=== PATIENT | female | born 1935 | race Caucasian/White ===

== ENCOUNTER → 2017-10-28 09:01 | Day surgery (SDC) | payer MEDICARE, BC, SELFPAY ==
--- NOTE | 2017-10-28 | PATH_ITS ---
[facility] Accession Number: [id number] . 01 Material submitted: . PART A: CECAL POLYP X2 PART B: ASCENDING COLON POLYP PART C: SIGMOID POLYP . 02 Diagnosis: A. Cecal Polyps, Biopsies: Fragments of tubular adenoma (two polyps removed). . B. Ascending Colon Polyp, Biopsy: Tubular adenoma. . C. Sigmoid Colon Polyp, Biopsy: Tubular adenoma. MRV/10/29/2017 . 02 Electronically signed: . Uriel Holley MD, PhD, Pathologist NPI- [id number] . 01 Gross description: . Received are three formalin-filled containers, each labeled with the patient's name: . A. In a container labeled cecal polyp x2, are multiple less than 0.1 cm to 1.1 cm portions of tissue. The largest piece is sectioned into multiple pieces. All fragments are totally submitted in cassette A. B. In a container labeled ascending colon polyp, the specimen consists of a 0.3 cm portion of tissue, entirely submitted in cassette B. C. In a container labeled sigmoid polyp, the specimen consists of a 0.4 cm portion of tissue, entirely submitted in cassette C. ([id number]) /FRR . 02 Pathologist provided ICD-10: D12.0, D12.2, D12.5 . 02 CPT . 416224, 466124, [id number] Performed at: 01 [facility] [address] [place] [address], [place], [place] [id number] MD Gen Murphy MD Phone: [phone] Performed at: [address] [facility] [address] [place], [place] [id number] MD Todd Espinosa MD Phone: [phone]
[2017-10-28 09:18] VITALS: BMI 33.8
[2017-10-28 09:30] VITALS: BP 140/76; PULSE 80; RESP 20; TEMP 36.3; O2SAT 97
[2017-10-28] MEDS: SODIUM CHLORIDE 0.9% 1,000 ML 70 ML IV (10:05)
--- NOTE | 2017-10-28 10:23 | PM.HP.1 ---
History of Present Illness Chief complaint: colonoscopy [id number] Narrative: Nanda Nascimento is a 82 year old female who is here for polyp surveillance [facility] Surgical History Status post hysterectomy Family History Father Heart disease Social History household members: spouse Meds Home Medications Medication Instructions Recorded Confirmed Type fluticasone 1 spray INTRANASAL QAM PRN #0 09/02/17 10/28/17 History Lexapro 20 mg PO QAM 10/28/17 10/28/17 History aspirin 81 mg PO QAM 10/28/17 10/28/17 History multivitamin 1 tab PO QAM 10/28/17 10/28/17 History Generic Name Dose Route Start Last Admin Trade Name Freq PRN Reason Stop Dose Admin Sodium Chloride 1,000 mls @ 70 mls/hr 10/28/17 10:15 Normal Saline 0.9% IV CONT KHARI Allergies Allergy/AdvReac Type Severity Reaction Status Date / Time bupropion Allergy Mild ITCHING Unverified 09/23/17 13:00 Review of Systems Review of Systems All systems reviewed & are unremarkable except as noted in HPI and below Exam Vital Signs (past 8 hours): Vital Signs - 8 hr 10/28/17 09:30 Temperature 97.4 F L Pulse Rate 80 Respiratory Rate 20 Blood Pressure 140/76 H Pulse Oximetry 97 Pulse Oximetry 97 Oxygen Delivery Method Room Air Narrative Exam Narrative: General: Patient is well developed, not in apparent distress Cardiovascular: Regular rate and rhythm, no murmurs, rubs, or gallops; no evidence of edema; no palpable abdominal aortic aneurysm Gastrointestinal: Normoactive bowel sounds, soft, nontender, nondistended, no rebound tenderness, no hepatosplenomegaly, no evidence of hernia Assessment & Plan Plan: Plan: 82-year-old female here for colon polyp surveillance. She is stable for the procedure and we will proceed with colonoscopy
--- NOTE | 2017-10-28 10:27 | PM.OP.ENDO ---
Operative Date/Time/Diagnoses - Date of procedure: 10/28/17 Time of procedure: 10:27 Pre-op diagnosis: Colon polyp surveillance Post-op diagnosis: other (Colon polyp status post polypectomy, grade 1 internal hemorrhoids) Procedure Notes Procedure in detail: Surgeon: David Tapia MD Procedure: Colonoscopy Medications: Conscious sedation using 4 mg IVof Midazolam and 150 mcg IV of Fentanyl Preanesthesia Assessment An H and P was performed/updated and the Px???s ASA class is 2. The procedure was discussed in detail with the patient. The potential risks and complications including infection, bleeding, missed lesions, perforation, need for surgery in case of perforation, prolonged hospital stay, and were explained. A brief question and answer period was allotted and once all questions were answered, informed consent was obtained. The patient was brought back to the procedure room and placed on standard monitoring. The patient???s vital signs were monitored continuously throughout the entire procedure. Prior to starting, a timeout was performed to confirm the patient???s identity, allergies, medications, and procedure. Procedure in detail The patient was placed in left lateral decubitus position and once adequate sedation was obtained a MONROE was performed. The digital rectal exam revealed no palpable lesions The tip of the colonoscope was placed in the anal canal and advanced without difficulty all the way to the cecum which was identified by the appendiceal orifice and ileocecal valve. Just adjacent to the appendiceal orifice there is note of a 10 mm sessile polyp. Preparations for polypectomy to remain by saline injection to lift the polyp this was followed by hot snare which removed almost the entire polyp. Other edges of the were completely removed by means of a cold biopsy forceps. There was minimal bleeding. A 2nd sessile polyp was found in the cecum measuring 8 mm and this was removed by means of cold snare with minimal bleeding. Examination of the remainder of the colon was performed with irrigation of any residual stool. In the ascending colon there is note of a 6 mm sessile polyp which was removed by means of cold snare with minimal bleeding. Further examination of the colon revealed a 4 mm sessile polyp in the sigmoid colon which was removed in its entirety by means of a cold snare with minimal bleeding. Retroflexion was performed in the rectum which revealed grade 1 internal hemorrhoids. The patient tolerated the procedure well and will be brought back to the recovery area to be discharged once criteria are met. The prep was judged to be good/excellent and adequate to identify polyps less than 5 mm. The withdrawal time was 20 min. The total procedure time from initial sedation was 33 min. Complications There were no complications and estimated blood loss was minimal. Recommendations: Resume previous diet Continue outPx medications Please hold aspirin for 1 week's time if no contraindication, due to multiple polypectomies Follow up pathology results Repeat colonoscopy can be considered in 3 years time if patient is agreeable however at her age further surveillance may also not be necessary. An emergency contact number was given to the patient for any complications related to the procedure
[2017-10-28 11:02] VITALS: BP 100/51; PULSE 83; RESP 15; TEMP 36.6; O2SAT 95
[2017-10-28] MEDS: fentaNYL 250 MCG/5 ML INJ IV (11:02)
[2017-10-28] MEDS: MIDAZOLAM 5 MG/5 ML VIAL IV (11:03)
--- NOTE | 2017-10-28 11:06 | PM.DS.1 ---
History of Present Illness Chief complaint: colonoscopy [id number] Narrative: Nanda Nascimento is a 82 year old female here for colon polyp surveillance Discharge Providers Primary care physician: Yadira Valdez PA-C Discharge provider: David Tapia MD Summary Time Spent with Patient Total time spent providing and/or coordinating discharge services: Exam Vital Signs (past 8 hours): Vital Signs - 8 hr 10/28/17 09:30 Temperature 97.4 F L Pulse Rate 80 Respiratory Rate 20 Blood Pressure 140/76 H Pulse Oximetry 97 Pulse Oximetry 97 Oxygen Delivery Method Room Air Narrative Exam Narrative: General: Patient is well developed, not in apparent distress Cardiovascular: Regular rate and rhythm, no murmurs, rubs, or gallops; no evidence of edema; no palpable abdominal aortic aneurysm Gastrointestinal: Normoactive bowel sounds, soft, nontender, nondistended, no rebound tenderness, no hepatosplenomegaly, no evidence of hernia Discharge Plan Discharge Plan Patient Disposition: Home, Self-Care Discharge comment: Removal IV prior to discharge Discharge to home with escort once discharge criteria met (stable vital signs, no abdominal pain, tolerating clear liquids) Discharge Med Rec/Prescriptions Prescriptions: No Action fluticasone 16 GM spray,suspension 1 spray Intranasal QAM PRN (Reason: Nasal Congestion) Qty: 0 RF: 0 valsartan-hydrochlorothiazide 160 MG/12.5 MG tablet 1 tab PO QDAY Qty: 90 RF: 3 simvastatin [Zocor] 40 MG tablet 40 mg PO QDAY Qty: 90 RF: 3 amitriptyline 25 MG tablet 25 mg PO HS Qty: 90 RF: 3 Lexapro 20 mg PO QAM RF: 0 aspirin 81 mg PO QAM RF: 0 multivitamin 1 tab PO QAM RF: 0 Visit Report/Discharge Packet Stand Alone Forms: Surgery Discharge Discharge Data Primary Care Provider: Yadira Valdez Attending Provider: David Tapia
[2017-10-28 11:07] VITALS: BP 98/55; PULSE 75; RESP 8; O2SAT 98
[2017-10-28 11:12] VITALS: BP 95/33; PULSE 74; RESP 74; O2SAT 95
[2017-10-28 11:17] VITALS: BP 105/52; PULSE 71; RESP 15; TEMP 36; O2SAT 98
[2017-10-28 11:30] VITALS: BP 110/63; PULSE 73; RESP 16; TEMP 37.5; O2SAT 99
== END | disposition home or self-care (01) ==
PROVIDERS: Family Provider Physician Assistant; PCP Physician Assistant; Visit Provider Internal Medicine Gastroenterology
PROC: 0DJD8ZZ Inspection of Lower Intestinal Tract, Via Natural or Artificial Opening Endoscopic (ICD-10-PCS; CPT 45378; principal; 2017-10-28 10:00)
DX: Z12.11 Encounter for screening for malignant neoplasm of colon (principal); Z86.010 Personal history of colon polyps; K64.0 First degree hemorrhoids; D12.0 Benign neoplasm of cecum; D12.2 Benign neoplasm of ascending colon; D12.5 Benign neoplasm of sigmoid colon
CPT/HCPCS: 45385; 45384; 88305; J2250; J3010

== ENCOUNTER → 2017-12-24 15:38 | Outpatient (CLI) | payer MEDICARE, BC, SELFPAY ==
--- NOTE | 2017-12-24 | DI.RAD.S_ITS ---
PROCEDURE: XR CHEST 2V INDICATIONS: COUGH,WHEEZE,CRACKES LLL TECHNIQUE: 2 views of the chest were acquired. COMPARISON: [facility], , CHEST 2 VIEW, 07/21/2017, 9:52. FINDINGS: Surgical changes and devices: None. Lungs and pleura: No pleural effusions or pneumothorax. Lungs are clear. Mediastinum: Mediastinal contours are normal. Heart size is normal. Bones and chest wall: No suspicious bony abnormalities. Soft tissues appear unremarkable. IMPRESSION: No acute cardiopulmonary disease. Dictated by: Leticia Lee M.D. on 12/24/2017 at 16:09 Approved by: Leticia Lee M.D. on 12/24/2017 at 16:09
== END ==
PROVIDERS: Visit Provider Nurse Practitioner Family
DX: R05 Cough (principal); R06.2 Wheezing
CPT/HCPCS: 71046

== ENCOUNTER → 2018-01-28 13:02 | Outpatient (CLI) | payer MEDICARE, BC, SELFPAY ==
--- NOTE | 2018-01-28 | OV.WND_ITS ---
Progress Note Details Patient Name: Nanda Nascimento Patient Number: [id number] PatientPatientDate: 01/28/2018 Clinician: Ammy Farias Clinician Cosigner: Muna Painter Physician / Paraffin Plant Operator: Yousif Arroyo SUBJECTIVE Chief Complaint This information was obtained from the patient Right Great Toe ulcer Allergies amoxicillin (Reaction: not sure), Levaquin (Severity: Moderate, Reaction: Lips swell), lisinopril (Severity: Moderate, Reaction: Rash) HPI This information was obtained from the patient 01/28/18. Seen by Dr. Arroyo. 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 She does not know how it started however it's been draining. She does not report pain in the toe but states she has a history of neuropathy and reduced sensation in her feet. Family History This information was obtained from the patient Cancer - No History, Diabetes - No History, Heart Disease - Father, Hereditary Spherocytosis - No History, Hypertension - No History, Kidney Disease - Mother, Mental Illness - No History, Non-contributory - No History, None - No History, Seizures - No History, Stroke - No History, Thyroid Problems - No History, Tuberculosis - Paternal Grandparents Social History This information was obtained from the patient Never smoker, Caffeine Use - 2 a day, Children - 4, Lives in - Own home, Marital Status - yes, Retired Past Medical History This information was obtained from the patient Patient has a medical history of: Pneumonia - 01/12/2018 Depression Neuropathy (Started 25 years ago) Surgical History This information was obtained from the patient Patient has a surgical history of: Bladder (3 Times) Broken ankle (Right) Complaints and Symptoms This information was obtained from the patient Patient complains of: General Notes: I have reviewed and concur with the Review of Systems and Past Family Social History documents completed by the clinician, I have reviewed and concur with the Wound Assessment document completed by the clinician Hematologic/Lymphatic: Bleeding Tendency Integumentary (Hair/Skin/Nails): Open Sore Neurological: Loss of Protective Sensation Prior Wound History: Drainage, Erythema Patient denies complaints or symptoms related to: Cardiovascular (Central/Peripheral): Lower extremity (leg) resting pain, Lower extremity (leg) swelling Constitutional Symptoms (General Health): Chills, Fever Ear/Nose/Mouth/Throat: Hearing Loss / Aid Hematologic/Lymphatic: Bleeding / Clotting Disorders Prior Wound History: Pain Respiratory: Shortness of Breath General Notes: UP to date per patient. Additional Information Does patient have a history of Cancer? Yes? Complete all questions.: No Medications olmesartan 40 mg tablet oral 1 1 tablet oral once daily fluticasone propionate (bulk) 100 % powder miscellaneous powder miscellaneous for Occsionally Aspir-81 81 mg tablet,delayed release oral tablet,delayed release (DR/EC) oral once daily Lexapro 20 mg tablet oral 1 1 tablet oral once daily amitriptyline 25 mg tablet oral 1 1 tablet oral once daily OBJECTIVE Constitutional Vital signs reviewed and noted. Well developed. Alert. Clean appearing.. Height/ Length: 62 in (157.48 cm), Weight: 186.3 lbs (84.68 kgs), BMI: 34.1, Temperature: 97.8 ?F ( 36.56 ?C), Pulse: 80 bpm, Respiratory Rate: 18 breaths/min, Blood Pressure: 117/73 mmHg, Pulse Oximetry: 96 %. Ears, Nose, Mouth, and Throat: No clinically significant hearing loss on informal examination. Respiratory: No respiratory distress. Even respirations and without use of accessory muscles.. Cardiovascular: 1+ dorsalis pedis and posterior tibial on the right. Affected extremity exhibits no peripheral edema or cyanosis, is warm, and is well perfused. Capillary refill is less than 2 seconds. Integumentary (Hair, Skin) Mild periwound erythema without warmth. Refer to appropriate clinician wound documentation for this visit; right foot ulcer extends to subcut with base partially covered with pink granulation, remainder fibrin and slough. Wound #1 Right Great Toe is a chronic Partial Thickness Neuropathic Ulcer and has received a status of Not Healed. Initial wound encounter measurements are 0.5cm length x 0.4cm width x 0.2cm depth, with an area of 0.2 sq cm and a volume of 0.04 cubic cm. No tunneling has been noted. No sinus tract has been noted. No undermining has been noted. There is a small amount of serous drainage noted which has no odor. The patient reports a wound pain of level 0/10. The wound margin is attached. Wound bed has No epithelialization, No eschar, Yes slough, Yes granulation. The periwound skin texture is normal. The periwound skin moisture is normal. The periwound skin color is normal. The temperature of the periwound skin is WNL. Periwound skin does not exhibit signs or symptoms of infection. Local Pulse is Doppler. Neurological: Cranial nerves grossly intact with symmetric function normal by informal observation.. ASSESSMENT Active Problems ICD-10 (Encounter Diagnosis) L97.512 - Non-pressure chronic ulcer of other part of right foot with fat layer exposed (Encounter Diagnosis) G60.9 - Hereditary and idiopathic neuropathy, unspecified (Encounter Diagnosis) L08.9 - Local infection of the skin and subcutaneous tissue, unspecified PROCEDURES Wound #1 Wound #1 (Neuropathic Ulcer) is located on the right great toe. A skin/ subcutaneous tissue level surgical debridement with a total area debrided of 0.2 sq cm was performed by Yousif Arroyo MD. Subcutaneous was removed along with devitalized tissue: exudate and slough. The following instrument(s) were used: curette. Pain control was achieved using EMLA lidocaine/prilocaine 2.5%/2.5%. A time out was conducted prior to the start of the procedure. A minimal amount of bleeding was controlled with pressure. The procedure was tolerated well with a loss of sensation throughout and a loss of sensation following the procedure. Post Debridement Measurements: 0.5cm length x 0.4cm width x 0.2cm depth; with an area of 0.2 sq cm and a volume of 0.04 cubic cm; PLAN Wound Orders: Wound #1 Right Great Toe Cleanser Cleanse Wound: - Distilled water or Normal saline May Shower. - If you wear a Cast Boot Protector, [facility] or [facility] will have this. Topical Treatments Antibiotic/Antimicrobial Ointment/Cream. - Gentamicin ointment to wound bed. Dressings Primary dressing: - Foam. Cover and secure with: - Hypafix tape Change Dressing: - Change every other day. Follow-Up Appointments Return Appointment: - - In one week. Laboratory: Culture Wound I've reviewed the clinician's documentation and agree with the evaluation and plan as written. In addition, the patient's ulcer demonstrates evidence of non-viable devitalized tissue which will continue to benefit from sharp debridement to help promote granulation and expedite healing. Also, I've cultured the ulcer and started treating a superficial infection with topical gentamicin ointment. Electronic Signature(s) Signed By: Date: Yousif Arroyo MD 01/29/2018 09:29:15 Entered By: Yousif Arroyo on 01/29/2018 09:13:35
== END ==
PROVIDERS: Family Provider Physician Assistant; PCP Nurse Practitioner Family; Referring Provider Nurse Practitioner Family; Visit Provider Internal Medicine
DX: L97.512 Non-pressure chronic ulcer of other part of right foot with fat layer exposed (principal); G60.9 Hereditary and idiopathic neuropathy, unspecified; L08.9 Local infection of the skin and subcutaneous tissue, unspecified
CPT/HCPCS: 11042; 87070; 87075; 87077; 87147; 87186; 87205; 99213

== ENCOUNTER → 2018-02-04 09:01 | Outpatient (CLI) | payer MEDICARE, BC, SELFPAY | PROVIDERS: PCP Nurse Practitioner Family; Visit Provider Internal Medicine | DX: G90.9 Disorder of the autonomic nervous system, unspecified (principal); L97.511 Non-pressure chronic ulcer of other part of right foot limited to breakdown of skin | CPT/HCPCS: 99212 ==

== ENCOUNTER 2018-08-20 10:48 | Emergency (ER) | payer OTHER, SELFPAY ==
[2018-08-20] VITALS (7 sets, daily range): BP systolic 118–140; BP diastolic 52–83; PULSE 64–76; RESP 15–19; TEMP 36.6; O2SAT 98–99; BMI 33.0
--- NOTE | 2018-08-20 11:21 | PC.NURSE ---
Pt has complaining of Pain in her upper back with slight pain radiating down left arm with numbness in fingers. Reports feeling chest tightness. States feeling dizzy with standing.
--- NOTE | 2018-08-20 11:28 | DI.RAD.S_ITS ---
PROCEDURE: XR CHEST 1V INDICATIONS: chest pain TECHNIQUE: One view of the chest was acquired. COMPARISON: [facility], , XR CHEST 2V, 12/24/2017, 15:23. [facility], , CHEST 2 VIEW, 07/21/2017, 9:52. FINDINGS: Surgical changes and devices: None. Lungs and pleura: Lungs are clear. No pleural effusions or pneumothorax. Mediastinum: Mediastinal contours appear normal. Heart size is normal. Bones and chest wall: No suspicious bony lesions. Overlying soft tissues appear unremarkable. IMPRESSION: No acute cardiopulmonary disease process. Dictated by: Valarie Leonard MD, PhD on 08/20/2018 at 11:57 Approved by: Valarie Leonard MD, PhD on 08/20/2018 at 12:02
[2018-08-20 12:15] LABS: Prothrombin Time 11.4 SECONDS (10.1-12.7)
[2018-08-20 12:18] LABS: PTT Partial Thromboplastin Tim 26 SECONDS (26.4-36.2)
[2018-08-20 12:20] LABS: Alanine Aminotransferase 32 IU/L (9-52); Albumin 4.5 g/dL (3.5-5.0); Albumin Globulin Ratio 1.4 (1.0-2.8); Alkaline Phosphatase 66 U/L (38-126); Aspartate Aminotransferase 31 IU/L (14-36); BUN Creatinine Ratio 31.4 (6-22); Bilirubin Total 0.5 mg/dL (0.2-1.3); Blood Urea Nitrogen 22 mg/dL (7-17); Calcium 9.7 mg/dL (8.4-10.2); Carbon Dioxide 25 mmol/L (22-32); Chloride 99 mmol/L (98-107); Creatine Kinase 38 U/L (30-135); Estimated Glomerular Filt Rate > 60.0 mL/min (>60); Globulin 3.2 g/dL (1.7-4.1); Glucose 97 mg/dL (80-110); HEMOLYSIS < 15 (0-50); Lipase 47 U/L (23-300); Potassium 3.8 mmol/L (3.4-5.1); Sodium 138 mmol/L (137-145); Total Protein 7.7 g/dL (6.3-8.2)
[2018-08-20 12:23] LABS: Add Manual Diff / Slide Review NO; Basophils Absolute Auto 100 /uL (0-100); Basophils Percent Auto 0.7 % (0-2); Eosinophils Absolute Auto 100 /uL (0-450); Eosinophils Percent Auto 1.6 % (2-4); Hemoglobin 14.4 g/dL (12.0-16.0); Lymphocytes Absolute Auto 2700 /uL (1100-4500); Lymphocytes Percent Auto 33.4 % (25-40); Mean Corpuscular HGB Conc 33.5 % (30-36); Mean Corpuscular Hemoglobin 30.7 PG (26-34); Mean Corpuscular Volume 91.7 fL (80-100); Monocytes Absolute Auto 800 /uL (0-900); Monocytes Percent Auto 9.7 % (3-14); Neutrophils Absolute Auto 4400 /uL (1500-7000); Neutrophils Percent Auto 54.6 % (50-75); Platelet Count 311 X10^3/uL (150-400); Red Cell Distribution Width 12.4 % (11.6-14.8)
--- NOTE | 2018-08-20 12:28 | ED.CHESTPAIN ---
HPI - Chest Pain <Dejah Kang PA-C - Last Filed: 08/20/18 14:44> General Chief Complaint: Chest Pain Stated Complaint: HEAVY CHEST/ARM/BACK Time Seen by Provider: 08/20/18 12:26 Source: patient Mode of arrival: ambulatory Limitations: no limitations History of Present Illness HPI narrative: This 82-year-old female comes in with 2-3 day history of chest discomfort and left shoulder and arm pain. She states that she describes this as a mild heavy sensation in her chest. She states that she has woken up 3 times now, 1st 2 or 3 days ago while napping, with pain in her left shoulder and upper arm to the elbow. She describes this as an ache. She states it only happens when she sleeps on her side, does not happen when she is on her back. She states that she has had mild nausea for the last couple of days, no vomiting. She denies any wheeze or cough, states maybe slightly short of breath today. She denies any recent illness or fever. She denies any new pain or swelling in her legs. She states that she has had some falls related to her neuropathy. Last week, she tripped and started to fall, but caught herself on the window frame with her upper back area, did not think any injury at the time. She does not know of any other trauma. She states there is no exertional component to her arm pain or chest heaviness. She states she has some ongoing dizziness if she gets up too fast, but that is also a chronic issue. Related Data Home Medications Medication Instructions Recorded Confirmed fluticasone 1 spray INTRANASAL QAM PRN #0 09/02/17 08/20/18 aspirin 81 mg PO DAILY 10/28/17 08/20/18 multivitamin 1 tab PO QAM 10/28/17 08/20/18 B Vitamin 1 tab PO DAILY 08/20/18 08/20/18 Vitamin D3 2 cap PO QWEEK 08/20/18 08/20/18 escitalopram oxalate 20 mg PO DAILY PRN 08/20/18 08/20/18 hydrochlorothiazide 25 mg PO DAILY 08/20/18 08/20/18 olmesartan 40 mg PO QPM 08/20/18 08/20/18 Allergies Allergy/AdvReac Type Severity Reaction Status Date / Time bupropion Allergy Mild ITCHING Verified 08/20/18 11:20 Review of Systems <Dejah Kang PA-C - Last Filed: 08/20/18 14:44> Review of Systems ROS Unobtainable: All systems reviewed & are unremarkable except as noted in HPI and below PFSH <Dejah Kang PA-C - Last Filed: 08/20/18 14:44> Medical History Allergy (Chronic Unknown) Anxiety (Chronic Unknown) Arthritis (Chronic Unknown) Depression (Chronic Unknown) Foot pain (Chronic Unknown) HTN (hypertension) (Chronic) Low back pain (Chronic Unknown) Peripheral neuropathy (Chronic Unknown) Carpal tunnel syndrome (Resolved 2014) Cataracts, bilateral (Resolved Unknown) Fecal incontinence (Resolved 10/2016) Fractures (Resolved Unknown) Surgical History H/O bladder repair surgery (Resolved Unknown) Status post hysterectomy Family History Father Heart disease Social History household members: spouse Smoking Status: Never smoker Social History household members: spouse Smoking Status: Never smoker Exam <Dejah Kang PA-C - Last Filed: 08/20/18 14:44> Narrative Exam Narrative: Postural readings: Supine BP 122/69, pulse 65, sitting BP 130/68, pulse 76, standing 128/68, pulse 69 GENERAL APPEARANCE: Patient sitting comfortably, in no distress. NECK/THYROID: Neck supple, no JVD. LUNGS: Clear to auscultation bilaterally. HEART: Regular rate and rhythm without murmur, normal S1, S2, no S3 or S4. ABDOMEN: Soft, NT, ND, + BS x 4 quadrants EXTREMITIES: No cyanosis or edema. No calf tenderness NEUROLOGIC: Alert and oriented, normal speech, and coordination. DERMATOLOGIC: No exanthem MUSCULOSKELETAL: No point tenderness over the cervical or thoracic spine, patient has some point tenderness over the proximal border of the trapezius/strap muscle insertions on the left at the midline. Moderately tender over the left lateral shoulder and upper arm musculature. She has full range of motion of the left upper extremity but is somewhat tender with adduction abduction Initial Vital Signs Initial Vital Signs: Vital Signs Temperature 97.9 F 08/20/18 11:20 Pulse Rate 73 08/20/18 11:20 Respiratory Rate 15 08/20/18 11:20 Blood Pressure 127/73 08/20/18 11:20 Pulse Oximetry 99 08/20/18 11:20 <Jaci Hall DO - Last Filed: 08/20/18 19:32> Initial Vital Signs Initial Vital Signs: Vital Signs Temperature 97.9 F 08/20/18 11:20 Pulse Rate 73 08/20/18 11:20 Respiratory Rate 15 08/20/18 11:20 Blood Pressure 127/73 08/20/18 11:20 Pulse Oximetry 99 08/20/18 11:20 Scores <Dejah Kang PA-C - Last Filed: 08/20/18 14:44> HEART Score Heart Score history: Slightly Suspicious Heart Score EKG: Normal Heart Score Age: > or = 65 years old Heart Score risk factors: 1-2 risk factors Heart Score troponin: < or = to normal limit Heart Score Total: 3 Course <Dejah Kang PA-C - Last Filed: 08/20/18 14:44> Additional Information: Patient has not had any recurrent upper extremity pain while lying supine here in the ED. Heart score is 3, mainly due to age and now on antihypertensive medication. Pain is atypical for cardiac source. No acute findings on lab work or imaging. Reviewed findings with Dr. Hall who agrees reasonable to d/c home. Patient states she has not had a cardiac stress test in years since I was seeing her in the office. She will follow up on Thursday with her PCP for these symptoms and to discuss repeat testing. She agreed to return if any acutely worsening symptoms in the interim. Orders Ordered: ED Orders 08/20/18 10:55 EKG-12 Lead Routine 08/20/18 11:28 XR chest 1V Stat 08/20/18 11:55 Complete Blood Count AUTO DIFF Stat Comprehensive Metabolic Panel Stat D Dimer Stat Lipase Stat Partial Thromboplastin Time Stat Prothrombin Time INR Stat Troponin & CK Cardiac Panel Stat 08/20/18 12:45 XR shoulder LT min 2V Stat Vital Signs - 8 hr 08/20/18 11:55 08/20/18 12:34 03/08/19 13:04 Pulse Rate 66 66 65 Pulse Rate [Orthostatic Lying] Pulse Rate [Orthostatic Sitting] Pulse Rate [Orthostatic Standing] Respiratory Rate 17 15 19 Blood Pressure [Left Arm] 118/52 L 140/74 134/83 Blood Pressure [Orthostatic Lying] Blood Pressure [Orthostatic Sitting] Blood Pressure [Orthostatic Standing] Pulse Oximetry 98 99 99 08/20/18 14:02 08/20/18 14:32 08/20/18 15:08 Pulse Rate 64 69 Pulse Rate [Orthostatic Lying] 65 Pulse Rate [Orthostatic Sitting] 76 Pulse Rate [Orthostatic Standing] 69 Respiratory Rate 15 18 Blood Pressure [Left Arm] 127/61 128/68 Blood Pressure [Orthostatic Lying] 122/69 Blood Pressure [Orthostatic Sitting] 130/68 Blood Pressure [Orthostatic Standing] 128/68 Pulse Oximetry 98 99 <Jaci Hall, DO - Last Filed: 08/20/18 19:32> Orders Ordered: ED Orders 08/20/18 10:55 EKG-12 Lead Routine 08/20/18 11:28 XR chest 1V Stat 08/20/18 11:55 Complete Blood Count AUTO DIFF Stat Comprehensive Metabolic Panel Stat D Dimer Stat Lipase Stat Partial Thromboplastin Time Stat Prothrombin Time INR Stat Troponin & CK Cardiac Panel Stat 08/20/18 12:45 XR shoulder LT min 2V Stat Vital Signs - 8 hr 08/20/18 11:55 08/20/18 12:34 08/20/18 13:04 Pulse Rate 66 66 65 Pulse Rate [Orthostatic Lying] Pulse Rate [Orthostatic Sitting] Pulse Rate [Orthostatic Standing] Respiratory Rate 17 15 19 Blood Pressure [Left Arm] 118/52 L 140/74 134/83 Blood Pressure [Orthostatic Lying] Blood Pressure [Orthostatic Sitting] Blood Pressure [Orthostatic Standing] Pulse Oximetry 98 99 99 08/20/18 14:02 08/20/18 14:32 08/20/18 15:08 Pulse Rate 64 69 Pulse Rate [Orthostatic Lying] 65 Pulse Rate [Orthostatic Sitting] 76 Pulse Rate [Orthostatic Standing] 69 Respiratory Rate 15 18 Blood Pressure [Left Arm] 127/61 128/68 Blood Pressure [Orthostatic Lying] 122/69 Blood Pressure [Orthostatic Sitting] 130/68 Blood Pressure [Orthostatic Standing] 128/68 Pulse Oximetry 98 99 MDM - Chest Pain <Dejah Kang PA-C - Last Filed: 08/20/18 14:44> Lab Data Attestation: I reviewed the patient's lab results. Result diagrams: 08/20/18 11:55 08/20/18 11:55 Lab Results 08/20/18 08/20/18 08/20/18 Range/Units 11:55 11:55 11:55 WBC 8.0 (4.5-11.0) X10^3/uL RBC 4.70 (4.0-5.2) X10^6/uL Hgb 14.4 (12.0-16.0) g/dL Hct 43.0 (36-46) % MCV 91.7 (80-100) fL MCH 30.7 (26-34) PG MCHC 33.5 (30-36) % RDW 12.4 (11.6-14.8) % Plt Count 311 (150-400) X10^3/uL Neut % (Auto) 54.6 (50-75) % Lymph % (Auto) 33.4 (25-40) % Deuel % (Auto) 9.7 (3-14) % Eos % (Auto) 1.6 L (2-4) % Baso % (Auto) 0.7 (0-2) % Neut # (Auto) 4400 (9001-1443) /uL Lymph # (Auto) 2700 (0415-9242) /uL Deuel # (Auto) 800 (0-900) /uL Eos # (Auto) 100 (0-450) /uL Baso # (Auto) 100 (0-100) /uL PT 11.4 (10.1-12.7) SECONDS INR 1.0 (0.9-1.3) APTT 26 L (26.4-36.2) SECONDS D-Dimer (<230) ng/mL Sodium 138 (137-145) mmol/L Potassium 3.8 (3.4-5.1) mmol/L Chloride 99 (98-107) mmol/L Carbon Dioxide 25 (22-32) mmol/L BUN 22 H (7-17) mg/dL Creatinine 0.70 (0.52-1.04) mg/dL Estimated GFR > 60.0 (>60) mL/min BUN/Creatinine Ratio 31.4 H (6-22) Glucose 97 (80-110) mg/dL Calcium 9.7 (8.4-10.2) mg/dL Total Bilirubin 0.5 (0.2-1.3) mg/dL AST 31 (14-36) IU/L ALT 32 (9-52) IU/L Alkaline Phosphatase 66 (38-126) U/L Total Creatine Kinase 38 (30-135) U/L CK-MB (CK-2) TNP CK-MB (CK-2) Rel Index TNP Troponin I < 0.012 (0.01-0.034) ng/mL Total Protein 7.7 (6.3-8.2) g/dL Albumin 4.5 (3.5-5.0) g/dL Globulin 3.2 (1.7-4.1) g/dL Albumin/Globulin Ratio 1.4 (1.0-2.8) Lipase 47 (23-300) U/L 08/20/18 Range/Units 11:55 WBC (4.5-11.0) X10^3/uL RBC (4.0-5.2) X10^6/uL Hgb (12.0-16.0) g/dL Hct (36-46) % MCV (80-100) fL MCH (26-34) PG MCHC (30-36) % RDW (11.6-14.8) % Plt Count (150-400) X10^3/uL Neut % (Auto) (50-75) % Lymph % (Auto) (25-40) % Deuel % (Auto) (3-14) % Eos % (Auto) (2-4) % Baso % (Auto) (0-2) % Neut # (Auto) (1240-3313) /uL Lymph # (Auto) (7184-5425) /uL Deuel # (Auto) (0-900) /uL Eos # (Auto) (0-450) /uL Baso # (Auto) (0-100) /uL PT (10.1-12.7) SECONDS INR (0.9-1.3) APTT (26.4-36.2) SECONDS D-Dimer 244 H (<230) ng/mL Sodium (137-145) mmol/L Potassium (3.4-5.1) mmol/L Chloride (98-107) mmol/L Carbon Dioxide (22-32) mmol/L BUN (7-17) mg/dL Creatinine (0.52-1.04) mg/dL Estimated GFR (>60) mL/min BUN/Creatinine Ratio (6-22) Glucose (80-110) mg/dL Calcium (8.4-10.2) mg/dL Total Bilirubin (0.2-1.3) mg/dL AST (14-36) IU/L ALT (9-52) IU/L Alkaline Phosphatase (38-126) U/L Total Creatine Kinase (30-135) U/L CK-MB (CK-2) CK-MB (CK-2) Rel Index Troponin I (0.01-0.034) ng/mL Total Protein (6.3-8.2) g/dL Albumin (3.5-5.0) g/dL Globulin (1.7-4.1) g/dL Albumin/Globulin Ratio (1.0-2.8) Lipase (23-300) U/L Imaging Data Chest x-ray: Radiologist's impression: [address] [address] XRay Report Signed Patient: Nanda Nascimento R#: [id number] : 5Acct:[id number] Age/Sex: 82 / FDate of Service: 08/20/18 Loc: ED Accession Number: [id number] Procedure: XR chest 1V Ordering Provider: Jaci Hall D.O. PROCEDURE: XR CHEST 1V INDICATIONS: chest pain TECHNIQUE: One view of the chest was acquired. COMPARISON: [facility], XR CHEST 2V, 12/24/2017, 15:23. [facility], CHEST 2 VIEW, 07/21/2017, 9:52. FINDINGS: Surgical changes and devices: None. Lungs and pleura: Lungs are clear. No pleural effusions or pneumothorax. Mediastinum: Mediastinal contours appear normal. Heart size is normal. Bones and chest wall: No suspicious bony lesions. Overlying soft tissues appear unremarkable. IMPRESSION: No acute cardiopulmonary disease process. Dictated by: Valarie Leonard MD, PhD on 08/20/2018 at 11:57 Approved by: Valarie Leonard MD, PhD on 08/20/2018 at 12:02 shoulder: Radiologist's impression: [address] [address] XRay Report Signed Patient: Nanda Nascimento JMR#: [id number] : 5Acct:[id number] Age/Sex: 82 / FDate of Service: 08/20/18 Loc: ED Accession Number: [id number] Procedure: XR shoulder LT min 2V Ordering Provider: Dejah Kang P.A-C PROCEDURE: XR SHOULDER LT MIN 2V INDICATIONS: pain TECHNIQUE: 3 views of the shoulder were acquired. COMPARISON: None. FINDINGS: Bones: No fractures or dislocations. No suspicious bony lesions. Visualized ribs appear intact. Mild periarticular osteophyte formation at the acromioclavicular joint. Soft tissues: No suspicious soft tissue calcifications. IMPRESSION: Acromioclavicular joint osteoarthritis. No acute fracture. No osseous lesion. If symptoms and/or clinical suspicion for pathology persist, further assessment with repeat, or advanced imaging (e.g., CT, MRI, or bone scan) may be helpful for further assessment. Dictated by: Tahir Ellison M.D. on 08/20/2018 at 13:22 Approved by: Tahir Ellison M.D. on 08/20/2018 at 13:23 ECG Data Attestation: I personally reviewed and interpreted this ECG as follows: (SINUS RHYTHM WITH RATE 70 TO, NORMAL AXIS) <Jaci Hall, DO - Last Filed: 08/20/18 19:32> Lab Data Lab Results 08/20/18 08/20/18 08/20/18 Range/Units 11:55 11:55 11:55 WBC 8.0 (4.5-11.0) X10^3/uL RBC 4.70 (4.0-5.2) X10^6/uL Hgb 14.4 (12.0-16.0) g/dL Hct 43.0 (36-46) % MCV 91.7 (80-100) fL MCH 30.7 (26-34) PG MCHC 33.5 (30-36) % RDW 12.4 (11.6-14.8) % Plt Count 311 (150-400) X10^3/uL Neut % (Auto) 54.6 (50-75) % Lymph % (Auto) 33.4 (25-40) % Deuel % (Auto) 9.7 (3-14) % Eos % (Auto) 1.6 L (2-4) % Baso % (Auto) 0.7 (0-2) % Neut # (Auto) 4400 (4527-9298) /uL Lymph # (Auto) 2700 (5680-8536) /uL Deuel # (Auto) 800 (0-900) /uL Eos # (Auto) 100 (0-450) /uL Baso # (Auto) 100 (0-100) /uL PT 11.4 (10.1-12.7) SECONDS INR 1.0 (0.9-1.3) APTT 26 L (26.4-36.2) SECONDS D-Dimer (<230) ng/mL Sodium 138 (137-145) mmol/L Potassium 3.8 (3.4-5.1) mmol/L Chloride 99 (98-107) mmol/L Carbon Dioxide 25 (22-32) mmol/L BUN 22 H (7-17) mg/dL Creatinine 0.70 (0.52-1.04) mg/dL Estimated GFR > 60.0 (>60) mL/min BUN/Creatinine Ratio 31.4 H (6-22) Glucose 97 (80-110) mg/dL Calcium 9.7 (8.4-10.2) mg/dL Total Bilirubin 0.5 (0.2-1.3) mg/dL AST 31 (14-36) IU/L ALT 32 (9-52) IU/L Alkaline Phosphatase 66 (38-126) U/L Total Creatine Kinase 38 (30-135) U/L CK-MB (CK-2) TNP CK-MB (CK-2) Rel Index TNP Troponin I < 0.012 (0.01-0.034) ng/mL Total Protein 7.7 (6.3-8.2) g/dL Albumin 4.5 (3.5-5.0) g/dL Globulin 3.2 (1.7-4.1) g/dL Albumin/Globulin Ratio 1.4 (1.0-2.8) Lipase 47 (23-300) U/L 03/08/19 Range/Units 11:55 WBC (4.5-11.0) X10^3/uL RBC (4.0-5.2) X10^6/uL Hgb (12.0-16.0) g/dL Hct (36-46) % MCV (80-100) fL MCH (26-34) PG MCHC (30-36) % RDW (11.6-14.8) % Plt Count (150-400) X10^3/uL Neut % (Auto) (50-75) % Lymph % (Auto) (25-40) % Deuel % (Auto) (3-14) % Eos % (Auto) (2-4) % Baso % (Auto) (0-2) % Neut # (Auto) (7529-2403) /uL Lymph # (Auto) (4356-3739) /uL Deuel # (Auto) (0-900) /uL Eos # (Auto) (0-450) /uL Baso # (Auto) (0-100) /uL PT (10.1-12.7) SECONDS INR (0.9-1.3) APTT (26.4-36.2) SECONDS D-Dimer 244 H (<230) ng/mL Sodium (137-145) mmol/L Potassium (3.4-5.1) mmol/L Chloride (98-107) mmol/L Carbon Dioxide (22-32) mmol/L BUN (7-17) mg/dL Creatinine (0.52-1.04) mg/dL Estimated GFR (>60) mL/min BUN/Creatinine Ratio (6-22) Glucose (80-110) mg/dL Calcium (8.4-10.2) mg/dL Total Bilirubin (0.2-1.3) mg/dL AST (14-36) IU/L ALT (9-52) IU/L Alkaline Phosphatase (38-126) U/L Total Creatine Kinase (30-135) U/L CK-MB (CK-2) CK-MB (CK-2) Rel Index Troponin I (0.01-0.034) ng/mL Total Protein (6.3-8.2) g/dL Albumin (3.5-5.0) g/dL Globulin (1.7-4.1) g/dL Albumin/Globulin Ratio (1.0-2.8) Lipase (23-300) U/L Discharge Plan Departure Patient Disposition: Home Clinical Impression: Atypical chest pain Left shoulder pain Qualifiers: Chronicity: unspecified Qualified Code(s): M25.512 - Pain in left shoulder Discharge Date/Time: 08/20/18 15:08 Interventions: ED Discharge Assessment Last Done: 08/20/18 15:08 Instructions: DI for Atypical Chest Pain Activity Restrictions/Additional Instructions: Please return immediately as we discussed if you have any acutely worsening symptoms. There was not any acute problem found on your testing today, and given that we are able to elicit your upper arm and shoulder area pain with pressure and certain movements, and the fact that it happens with you resting in certain positions, make this less likely to be pain related to your heart. Please call your PCP today and schedule a follow-up appointment for Thursday to discuss getting a repeat cardiac stress test and other workup as needed since it sounds like your last 1 was probably years ago. Please take over the counter pain medicine prior to lying down to see if this helps your pain. Your blood pressures were quite stable today in different positions, but you should continue to change positions slowly as you have been. Please follow up with nurse practitioner on this as well since you recently started the hydrochlorothiazide Prescriptions: No Action fluticasone 16 GM spray,suspension 1 spray Intranasal QAM PRN (Reason: Nasal Congestion) Qty: 0 RF: 0 aspirin 81 mg Tablet,Delayed Release (Dr/Ec) 81 mg PO DAILY RF: 0 multivitamin 1 tab PO QAM RF: 0 hydrochlorothiazide 25 mg tablet 25 mg PO DAILY RF: 0 olmesartan 40 mg tablet 40 mg PO QPM RF: 0 escitalopram oxalate 20 mg tablet 20 mg PO DAILY PRN (Reason: Allergy Symptoms) RF: 0 B Vitamin 1 tab PO DAILY RF: 0 Vitamin D3 2 cap PO QWEEK RF: 0 Referrals: Verenice Castillo ARNP [Primary Care Provider] - <Jaci Hall DO - Last Filed: 08/20/18 19:32> Cosign ED Attending Nohemyature Attestation: I was immediately available in the department for consultation. This documentation has been reviewed and I agree with assessment and plan. Supervised by Jaci Hall DO
[2018-08-20 12:31] LABS: Troponin I < 0.012 ng/mL (0.01-0.034)
--- NOTE | 2018-08-20 12:45 | DI.RAD.S_ITS ---
PROCEDURE: XR SHOULDER LT MIN 2V INDICATIONS: pain TECHNIQUE: 3 views of the shoulder were acquired. COMPARISON: None. FINDINGS: Bones: No fractures or dislocations. No suspicious bony lesions. Visualized ribs appear intact. Mild periarticular osteophyte formation at the acromioclavicular joint. Soft tissues: No suspicious soft tissue calcifications. IMPRESSION: Acromioclavicular joint osteoarthritis. No acute fracture. No osseous lesion. If symptoms and/or clinical suspicion for pathology persist, further assessment with repeat, or advanced imaging (e.g., CT, MRI, or bone scan) may be helpful for further assessment. Dictated by: Tahir Ellison M.D. on 08/20/2018 at 13:22 Approved by: Tahir Elilson M.D. on 08/20/2018 at 13:23
--- NOTE | 2018-08-20 12:53 | ED_ITS ---
HPI - Chest Pain <Dejah Kang PA-C - Last Filed: 08/20/18 14:44> General Chief Complaint: Chest Pain Stated Complaint: HEAVY CHEST/ARM/BACK Time Seen by Provider: 08/20/18 12:26 Source: patient Mode of arrival: ambulatory Limitations: no limitations History of Present Illness HPI narrative: This 82-year-old female comes in with 2-3 day history of chest discomfort and left shoulder and arm pain. She states that she describes this as a mild heavy sensation in her chest. She states that she has woken up 3 times now, 1st 2 or 3 days ago while napping, with pain in her left shoulder and upper arm to the elbow. She describes this as an ache. She states it only happens when she sleeps on her side, does not happen when she is on her back. She states that she has had mild nausea for the last couple of days, no vomiting. She denies any wheeze or cough, states maybe slightly short of breath today. She denies any recent illness or fever. She denies any new pain or swelling in her legs. She states that she has had some falls related to her neuropathy. Last week, she tripped and started to fall, but caught herself on the window frame with her upper back area, did not think any injury at the time. She does not know of any other trauma. She states there is no exertional component to her arm pain or chest heaviness. She states she has some ongoing dizziness if she gets up too fast, but that is also a chronic issue. Related Data Home Medications Medication Instructions Recorded Confirmed fluticasone 1 spray INTRANASAL QAM PRN #0 09/02/17 08/20/18 aspirin 81 mg PO DAILY 10/28/17 08/20/18 multivitamin 1 tab PO QAM 10/28/17 08/20/18 B Vitamin 1 tab PO DAILY 08/20/18 08/20/18 Vitamin D3 2 cap PO QWEEK 08/20/18 08/20/18 escitalopram oxalate 20 mg PO DAILY PRN 08/20/18 08/20/18 hydrochlorothiazide 25 mg PO DAILY 08/20/18 08/20/18 olmesartan 40 mg PO QPM 08/20/18 08/20/18 Allergies Allergy/AdvReac Type Severity Reaction Status Date / Time bupropion Allergy Mild ITCHING Verified 08/20/18 11:20 Review of Systems <Dejah Kang PA-C - Last Filed: 08/20/18 14:44> Review of Systems ROS Unobtainable: All systems reviewed & are unremarkable except as noted in HPI and below PFSH <Dejah Kang PA-C - Last Filed: 08/20/18 14:44> Medical History Allergy (Chronic Unknown) Anxiety (Chronic Unknown) Arthritis (Chronic Unknown) Depression (Chronic Unknown) Foot pain (Chronic Unknown) HTN (hypertension) (Chronic) Low back pain (Chronic Unknown) Peripheral neuropathy (Chronic Unknown) Carpal tunnel syndrome (Resolved 2014) Cataracts, bilateral (Resolved Unknown) Fecal incontinence (Resolved 10/2016) Fractures (Resolved Unknown) Surgical History H/O bladder repair surgery (Resolved Unknown) Status post hysterectomy Family History Father Heart disease Social History household members: spouse Smoking Status: Never smoker Social History household members: spouse Smoking Status: Never smoker Exam <Dejah Kang PA-C - Last Filed: 08/20/18 14:44> Narrative Exam Narrative: Postural readings: Supine BP 122/69, pulse 65, sitting BP 130/68, pulse 76, standing 128/68, pulse 69 GENERAL APPEARANCE: Patient sitting comfortably, in no distress. NECK/THYROID: Neck supple, no JVD. LUNGS: Clear to auscultation bilaterally. HEART: Regular rate and rhythm without murmur, normal S1, S2, no S3 or S4. ABDOMEN: Soft, NT, ND, + BS x 4 quadrants EXTREMITIES: No cyanosis or edema. No calf tenderness NEUROLOGIC: Alert and oriented, normal speech, and coordination. DERMATOLOGIC: No exanthem MUSCULOSKELETAL: No point tenderness over the cervical or thoracic spine, patient has some point tenderness over the proximal border of the trapezius/strap muscle insertions on the left at the midline. Moderately tender over the left lateral shoulder and upper arm musculature. She has full range of motion of the left upper extremity but is somewhat tender with adduction abduction Initial Vital Signs Initial Vital Signs: Vital Signs Temperature 97.9 F 08/20/18 11:20 Pulse Rate 73 08/20/18 11:20 Respiratory Rate 15 08/20/18 11:20 Blood Pressure 127/73 08/20/18 11:20 Pulse Oximetry 99 08/20/18 11:20 <Jaci Hall DO - Last Filed: 08/20/18 19:32> Initial Vital Signs Initial Vital Signs: Vital Signs Temperature 97.9 F 08/20/18 11:20 Pulse Rate 73 08/20/18 11:20 Respiratory Rate 15 08/20/18 11:20 Blood Pressure 127/73 08/20/18 11:20 Pulse Oximetry 99 08/20/18 11:20 Scores <Dejah Kang PA-C - Last Filed: 08/20/18 14:44> HEART Score Heart Score history: Slightly Suspicious Heart Score EKG: Normal Heart Score Age: > or = 65 years old Heart Score risk factors: 1-2 risk factors Heart Score troponin: < or = to normal limit Heart Score Total: 3 Course <Dejah Kang PA-C - Last Filed: 08/20/18 14:44> Additional Information: Patient has not had any recurrent upper extremity pain while lying supine here in the ED. Heart score is 3, mainly due to age and now on antihypertensive medication. Pain is atypical for cardiac source. No acute findings on lab work or imaging. Reviewed findings with Dr. Hall who agrees re asonable to d/c home. Patient states she has not had a cardiac stress test in years since I was seeing her in the office. She will follow up on Thursday with her PCP for these symptoms and to discuss repeat testing. She agreed to return if any acutely worsening symptoms in the interim. Orders Ordered: ED Orders 08/20/18 10:55 EKG-12 Lead Routine 08/20/18 11:28 XR chest 1V Stat 08/20/18 11:55 Complete Blood Count AUTO DIFF Stat Comprehensive Metabolic Panel Stat D Dimer Stat Lipase Stat Partial Thromboplastin Time Stat Prothrombin Time INR Stat Troponin & CK Cardiac Panel Stat 08/20/18 12:45 XR shoulder LT min 2V Stat Vital Signs - 8 hr 08/20/18 11:55 08/20/18 12:34 08/20/18 13:04 Pulse Rate 66 66 65 Pulse Rate [Orthostatic Lying] Pulse Rate [Orthostatic Sitting] Pulse Rate [Orthostatic Standing] Respiratory Rate 17 15 19 Blood Pressure [Left Arm] 118/52 L 140/74 134/83 Blood Pressure [Orthostatic Lying] Blood Pressure [Orthostatic Sitting] Blood Pressure [Orthostatic Standing] Pulse Oximetry 98 99 99 08/20/18 14:02 08/20/18 14:32 08/20/18 15:08 Pulse Rate 64 69 Pulse Rate [Orthostatic Lying] 65 Pulse Rate [Orthostatic Sitting] 76 Pulse Rate [Orthostatic Standing] 69 Respiratory Rate 15 18 Blood Pressure [Left Arm] 127/61 128/68 Blood Pressure [Orthostatic Lying] 122/69 Blood Pressure [Orthostatic Sitting] 130/68 Blood Pressure [Orthostatic Standing] 128/68 Pulse Oximetry 98 99 <Jaci Hall, DO - Last Filed: 08/20/18 19:32> Orders Ordered: ED Orders 08/20/18 10:55 EKG-12 Lead Routine 08/20/18 11:28 XR chest 1V Stat 08/20/18 11:55 Complete Blood Count AUTO DIFF Stat Comprehensive Metabolic Panel Stat D Dimer Stat Lipase Stat Partial Thromboplastin Time Stat Prothrombin Time INR Stat Troponin & CK Cardiac Panel Stat 08/20/18 12:45 XR shoulder LT min 2V Stat Vital Signs - 8 hr 08/20/18 11:55 08/20/18 12:34 08/20/18 13:04 Pulse Rate 66 66 65 Pulse Rate [Orthostatic Lying] Pulse Rate [Orthostatic Sitting] Pulse Rate [Orthostatic Standing] Respiratory Rate 17 15 19 Blood Pressure [Left Arm] 118/52 L 140/74 134/83 Blood Pressure [Orthostatic Lying] Blood Pressure [Orthostatic Sitting] Blood Pressure [Orthostatic Standing] Pulse Oximetry 98 99 99 08/20/18 14:02 08/20/18 14:32 08/20/18 15:08 Pulse Rate 64 69 Pulse Rate [Orthostatic Lying] 65 Pulse Rate [Orthostatic Sitting] 76 Pulse Rate [Orthostatic Standing] 69 Respiratory Rate 15 18 Blood Pressure [Left Arm] 127/61 128/68 Blood Pressure [Orthostatic Lying] 122/69 Blood Pressure [Orthostatic Sitting] 130/68 Blood Pressure [Orthostatic Standing] 128/68 Pulse Oximetry 98 99 MDM - Chest Pain <Dejah Kang PA-C - Last Filed: 08/20/18 14:44> Lab Data Attestation: I reviewed the patient's lab results. Result diagrams: 08/20/18 11:55 08/20/18 11:55 Lab Results 08/20/18 08/20/18 08/20/18 Range/Units 11:55 11:55 11:55 WBC 8.0 (4.5-11.0) X10^3/uL RBC 4.70 (4.0-5.2) X10^6/uL Hgb 14.4 (12.0-16.0) g/dL Hct 43.0 (36-46) % MCV 91.7 (80-100) fL MCH 30.7 (26-34) PG MCHC 33.5 (30-36) % RDW 12.4 (11.6-14.8) % Plt Count 311 (150-400) X10^3/uL Neut % (Auto) 54.6 (50-75) % Lymph % (Auto) 33.4 (25-40) % Coal % (Auto) 9.7 (3-14) % Eos % (Auto) 1.6 L (2-4) % Baso % (Auto) 0.7 (0-2) % Neut # (Auto) 4400 (2345-4162) /uL Lymph # (Auto) 2700 (3729-7982) /uL Coal # (Auto) 800 (0-900) /uL Eos # (Auto) 100 (0-450) /uL Baso # (Auto) 100 (0-100) /uL PT 11.4 (10.1-12.7) SECONDS INR 1.0 (0.9-1.3) APTT 26 L (26.4-36.2) SECONDS D-Dimer (<230) ng/mL Sodium 138 (137-145) mmol/L Potassium 3.8 (3.4-5.1) mmol/L Chloride 99 (98-107) mmol/L Carbon Dioxide 25 (22-32) mmol/L BUN 22 H (7-17) mg/dL Creatinine 0.70 (0.52-1.04) mg/dL Estimated GFR > 60.0 (>60) mL/min BUN/Creatinine Ratio 31.4 H (6-22) Glucose 97 (80-110) mg/dL Calcium 9.7 (8.4-10.2) mg/dL Total Bilirubin 0.5 (0.2-1.3) mg/dL AST 31 (14-36) IU/L ALT 32 (9-52) IU/L Alkaline Phosphatase 66 (38-126) U/L Total Creatine Kinase 38 (30-135) U/L CK-MB (CK-2) TNP CK-MB (CK-2) Rel Index TNP Troponin I < 0.012 (0.01-0.034) ng/mL Total Protein 7.7 (6.3-8.2) g/dL Albumin 4.5 (3.5-5.0) g/dL Globulin 3.2 (1.7-4.1) g/dL Albumin/Globulin Ratio 1.4 (1.0-2.8) Lipase 47 (23-300) U/L 08/20/18 Range/Units 11:55 WBC (4.5-11.0) X10^3/uL RBC (4.0-5.2) X10^6/uL Hgb (12.0-16.0) g/dL Hct (36-46) % MCV (80-100) fL MCH (26-34) PG MCHC (30-36) % RDW (11.6-14.8) % Plt Count (150-400) X10^3/uL Neut % (Auto) (50-75) % Lymph % (Auto) (25-40) % Coal % (Auto) (3-14) % Eos % (Auto) (2-4) % Baso % (Auto) (0-2) % Neut # (Auto) (1759-2573) /uL Lymph # (Auto) (7434-4825) /uL Coal # (Auto) (0-900) /uL Eos # (Auto) (0-450) /uL Baso # (Auto) (0-100) /uL PT (10.1-12.7) SECONDS INR (0.9-1.3) APTT (26.4-36.2) SECONDS D-Dimer 244 H (<230) ng/mL Sodium (137-145) mmol/L Potassium (3.4-5.1) mmol/L Chloride (98-107) mmol/L Carbon Dioxide (22-32) mmol/L BUN (7-17) mg/dL Creatinine (0.52-1.04) mg/dL Estimated GFR (>60) mL/min BUN/Creatinine Ratio (6-22) Glucose (80-110) mg/dL Calcium (8.4-10.2) mg/dL Total Bilirubin (0.2-1.3) mg/dL AST (14-36) IU/L ALT (9-52) IU/L Alkaline Phosphatase (38-126) U/L Total Creatine Kinase (30-135) U/L CK-MB (CK-2) CK-MB (CK-2) Rel Index Troponin I (0.01-0.034) ng/mL Total Protein (6.3-8.2) g/dL Albumin (3.5-5.0) g/dL Globulin (1.7-4.1) g/dL Albumin/Globulin Ratio (1.0-2.8) Lipase (23-300) U/L Imaging Data Chest x-ray: Radiologist's impression: [address] [id number] XRay Report Signed Patient: Nanda Nascimento R#: [id number] : 5Acct:[id number] Age/Sex: 82 / FDate of Service: 08/20/18 Loc: ED Accession Number: [id number] Procedure: XR chest 1V Ordering Provider: Jaci Hall D.O. PROCEDURE: XR CHEST 1V INDICATIONS: chest pain TECHNIQUE: One view of the chest was acquired. COMPARISON: [facility], , XR CHEST 2V, 12/24/2017, 15:23. [facility], , CHEST 2 VIEW, 07/21/2017, 9:52. FINDINGS: Surgical changes and devices: None. Lungs and pleura: Lungs are clear. No pleural effusions or pneumothorax. Mediastinum: Mediastinal contours appear normal. Heart size is normal. Bones and chest wall: No suspicious bony lesions. Overlying soft tissues appear unremarkable. IMPRESSION: No acute cardiopulmonary disease process. Dictated by: Valarie Leonard MD, PhD on 08/20/2018 at 11:57 Approved by: Valarie Leonard MD, PhD on 08/20/2018 at 12:02 shoulder: Radiologist's impression: [address] [id number] XRay Report Signed Patient: Nanda Nascimento JMR#: [id number] : 5Acct:[id number] Age/Sex: 82 / FDate of Service: 08/20/18 Loc: ED Accession Number: [id number] Procedure: XR shoulder LT min 2V Ordering Provider: Dejah Kang P.A-C PROCEDURE: XR SHOULDER LT MIN 2V INDICATIONS: pain TECHNIQUE: 3 views of the shoulder were acquired. COMPARISON: None. FINDINGS: Bones: No fractures or dislocations. No suspicious bony lesions. Visualized ribs appear intact. Mild periarticular osteophyte formation at the acromioclavicular joint. Soft tissues: No suspicious soft tissue calcifications. IMPRESSION: Acromioclavicular joint osteoarthritis. No acute fracture. No osseous lesion. If symptoms and/or clinical suspicion for pathology persist, further assessment with repeat, or advanced imaging (e.g., CT, MRI, or bone scan) may be helpful for further assessment. Dictated by: Tahir Ellison M.D. on 08/20/2018 at 13:22 Approved by: Tahir Ellison M.D. on 08/20/2018 at 13:23 ECG Data Attestation: I personally reviewed and interpreted this ECG as follows: (SINUS RHYTHM WITH RATE 70 TO, NORMAL AXIS) <Jaci Hall, DO - Last Filed: 08/20/18 19:32> Lab Data Lab Results 08/20/18 08/20/18 08/20/18 Range/Units 11:55 11:55 11:55 WBC 8.0 (4.5-11.0) X10^3/uL RBC 4.70 (4.0-5.2) X10^6/uL Hgb 14.4 (12.0-16.0) g/dL Hct 43.0 (36-46) % MCV 91.7 (80-100) fL MCH 30.7 (26-34) PG MCHC 33.5 (30-36) % RDW 12.4 (11.6-14.8) % Plt Count 311 (150-400) X10^3/uL Neut % (Auto) 54.6 (50-75) % Lymph % (Auto) 33.4 (25-40) % Coal % (Auto) 9.7 (3-14) % Eos % (Auto) 1.6 L (2-4) % Baso % (Auto) 0.7 (0-2) % Neut # (Auto) 4400 (8246-0669) /uL Lymph # (Auto) 2700 (4888-6778) /uL Coal # (Auto) 800 (0-900) /uL Eos # (Auto) 100 (0-450) /uL Baso # (Auto) 100 (0-100) /uL PT 11.4 (10.1-12.7) SECONDS INR 1.0 (0.9-1.3) APTT 26 L (26.4-36.2) SECONDS D-Dimer (<230) ng/mL Sodium 138 (137-145) mmol/L Potassium 3.8 (3.4-5.1) mmol/L Chloride 99 (98-107) mmol/L Carbon Dioxide 25 (22-32) mmol/L BUN 22 H (7-17) mg/dL Creatinine 0.70 (0.52-1.04) mg/dL Estimated GFR > 60.0 (>60) mL/min BUN/Creatinine Ratio 31.4 H (6-22) Glucose 97 (80-110) mg/dL Calcium 9.7 (8.4-10.2) mg/dL Total Bilirubin 0.5 (0.2-1.3) mg/dL AST 31 (14-36) IU/L ALT 32 (9-52) IU/L Alkaline Phosphatase 66 (38-126) U/L Total Creatine Kinase 38 (30-135) U/L CK-MB (CK-2) TNP CK-MB (CK-2) Rel Index TNP Troponin I < 0.012 (0.01-0.034) ng/mL Total Protein 7.7 (6.3-8.2) g/dL Albumin 4.5 (3.5-5.0) g/dL Globulin 3.2 (1.7-4.1) g/dL Albumin/Globulin Ratio 1.4 (1.0-2.8) Lipase 47 (23-300) U/L 08/20/18 Range/Units 11:55 WBC (4.5-11.0) X10^3/uL RBC (4.0-5.2) X10^6/uL Hgb (12.0-16.0) g/dL Hct (36-46) % MCV (80-100) fL MCH (26-34) PG MCHC (30-36) % RDW (11.6-14.8) % Plt Count (150-400) X10^3/uL Neut % (Auto) (50-75) % Lymph % (Auto) (25-40) % Coal % (Auto) (3-14) % Eos % (Auto) (2-4) % Baso % (Auto) (0-2) % Neut # (Auto) (4946-4539) /uL Lymph # (Auto) (8057-2181) /uL Coal # (Auto) (0-900) /uL Eos # (Auto) (0-450) /uL Baso # (Auto) (0-100) /uL PT (10.1-12.7) SECONDS INR (0.9-1.3) APTT (26.4-36.2) SECONDS D-Dimer 244 H (<230) ng/mL Sodium (137-145) mmol/L Potassium (3.4-5.1) mmol/L Chloride (98-107) mmol/L Carbon Dioxide (22-32) mmol/L BUN (7-17) mg/dL Creatinine (0.52-1.04) mg/dL Estimated GFR (>60) mL/min BUN/Creatinine Ratio (6-22) Glucose (80-110) mg/dL Calcium (8.4-10.2) mg/dL Total Bilirubin (0.2-1.3) mg/dL AST (14-36) IU/L ALT (9-52) IU/L Alkaline Phosphatase (38-126) U/L Total Creatine Kinase (30-135) U/L CK-MB (CK-2) CK-MB (CK-2) Rel Index Troponin I (0.01-0.034) ng/mL Total Protein (6.3-8.2) g/dL Albumin (3.5-5.0) g/dL Globulin (1.7-4.1) g/dL Albumin/Globulin Ratio (1.0-2.8) Lipase (23-300) U/L Discharge Plan Departure Patient Disposition: Home Clinical Impression: Atypical chest pain Left shoulder pain Qualifiers: Chronicity: unspecified Qualified Code(s): M25.512 - Pain in left shoulder Discharge Date/Time: 08/20/18 15:08 Interventions: ED Discharge Assessment Last Done: 08/20/18 15:08 Instructions: DI for Atypical Chest Pain Activity Restrictions/Additional Instructions: Please return immediately as we discussed if you have any acutely worsening symptoms. There was not any acute problem found on your testing today, and given that we are able to elicit your upper arm and shoulder area pain with pressure and certain movements, and the fact that it happens with you resting in certain positions, make this less likely to be pain related to your heart. Please call your PCP today and schedule a follow-up appointment for Thursday to discuss getting a repeat cardiac stress test and other workup as needed since it sounds like your last 1 was probably years ago. Please take over the counter pain medicine prior to lying down to see if this helps your pain. Your blood pressures were quite stable today in different positions, but you should continue to change positions slowly as you have been. Please follow up with nurse practitioner on this as well since you recently started the hydrochlorothiazide Prescriptions: No Action fluticasone 16 GM spray,suspension 1 spray Intranasal QAM PRN (Reason: Nasal Congestion) Qty: 0 RF: 0 aspirin 81 mg Tablet,Delayed Release (Dr/Ec) 81 mg PO DAILY RF: 0 multivitamin 1 tab PO QAM RF: 0 hydrochlorothiazide 25 mg tablet 25 mg PO DAILY RF: 0 olmesartan 40 mg tablet 40 mg PO QPM RF: 0 escitalopram oxalate 20 mg tablet 20 mg PO DAILY PRN (Reason: Allergy Symptoms) RF: 0 B Vitamin 1 tab PO DAILY RF: 0 Vitamin D3 2 cap PO QWEEK RF: 0 Referrals: Verenice Castillo ARNP [Primary Care Provider] - <Jaci Hall DO - Last Filed: 08/20/18 19:32> Cosign ED Attending Nohemyature Attestation: I was immediately available in the department for consultation. This documentation has been reviewed and I agree with assessment and plan. Supervised by Jaci Hall DO
[2018-08-20 13:02] LABS: D Dimer 244 ng/mL (<230)
== END 2018-08-20 15:08 | disposition home or self-care (01) ==
PROVIDERS: Emergency Medicine; Emergency Provider Internal Medicine; PCP Nurse Practitioner Family
DX: R07.9 Chest pain, unspecified (principal); M25.512 Pain in left shoulder
CPT/HCPCS: 36591; 71045; 73030; 80053; 82550; 83690; 84484; 85025; 85379; 85610; 85730; 93005; 93010; 99283; 99285

== ENCOUNTER → 2018-10-14 13:32 | Outpatient (CLI) | payer OTHER, SELFPAY ==
--- NOTE | 2018-10-14 14:56 | P.PCN_ITS ---
Cardiac Stress Test Report Referral & Results Date Patient Seen: 10/14/18 Requesting provider: Verenice Castillo Indication: Chest discomfort Rest ECG: Unremarkable Procedure Note: After both written and verbal informed consent the patient had an IV started by the diagnostic imaging RN and then was hooked up to the treadmill monitoring system. The patient was placed on the treadmill at 1 mile an hour with no elevation and was then injected with the Chelsie scan material. The Cardiolite was then immediately administered. The patient spent an additional 2-3 minutes on the treadmill before being returned to the [facility] in the supine position. The patient had a normal response to all infused materials. Impression: Please see perfusion imaging report for details regarding possible ischemia Please note: Actual ECG tracings can be found in the PACS system.
--- NOTE | 2018-10-16 14:54 | DI.NM.S_ITS ---
DATE OF SERVICE: 10/14/2018 PROCEDURE: Lexiscan perfusion study. INDICATION: Chest pain, history of hypertension. RADIOPHARMACEUTICAL: 24.8 mCi technetium 99m Myoview IV was injected at stress, and 25.8 mCi technetium 99m Myoview IV was injected at rest. CARDIAC STRESS: Patient underwent IV Lexiscan perfusion study under the supervision of an attending staff using standard protocol. Baseline rhythm was sinus, with 0.5- to 1-mm horizontal upsloping ST depression in inferior lateral leads, which remained there during Lexiscan stress test. There was artifact seen as well. No significant arrhythmias seen. No significant symptoms are reported. RAW DATA: Significant breast shadow was seen. GATED STUDY: Resting LV ejection fraction 87%, and stress LV ejection fraction 96%. LV function is hyperdynamic. No obvious regional wall motion abnormalities. Resting end-diastolic volume 60 mL. No transient ischemic dilatation. TID ratio is 0.84, which is within normal limits. Lung/heart ratio 0.29, which is within normal limits. MYOCARDIAL PERFUSION SCAN: Stress supine images revealed normal myocardial perfusion. Resting supine images revealed mildly decreased perfusion of distal anterior wall. On prone, there was mildly decreased perfusion of anterior apex as well. CONCLUSION: I will call this study a normal myocardial perfusion study as stress supine images revealed myocardial perfusion. Hyperdynamic LV function. Nonspecific baseline ST-T changes. Patient had exercise perfusion study in July 2014. At that time also, patient had normal myocardial perfusion and mild ST depression in inferolateral leads. At that time, she walked on Bello protocol for 5 minutes 32 seconds. This study is a pharmacological perfusion study. In 2014, patient had hyperdynamic LV function with LV ejection fraction about 89%. As far as perfusion scan is concerned, this is a low-risk myocardial perfusion scan. Clinical correlation is recommended. Nanda Nascimento - ORTHOPEDIC NURSE/fn/kv doc#: [id number]/job#: [id number] dd: 10/15/2018 12:35:00 dt: 10/16/2018 14:47:00 DICTATING MD/COPIES TO: Hector Rod MD COPIES MNE: MAURICE
== END ==
PROVIDERS: PCP Nurse Practitioner Family; Visit Provider Nurse Practitioner Family
DX: R07.1 Chest pain on breathing (principal); I10 Essential (primary) hypertension
CPT/HCPCS: 78452; 93016; 93017; 93018; A9502; J2785

== ENCOUNTER 2018-10-26 17:58 | Emergency (ER) | payer OTHER, SELFPAY ==
--- NOTE | 2018-10-26 18:01 | DI.RAD.S_ITS ---
PROCEDURE: XR WRIST LT MIN 3V INDICATIONS: injury, status post fall TECHNIQUE: 4 views of the wrist were acquired. COMPARISON: [facility] [place], CR, XR WRIST 3VW LT, 10/24/2016, 14:55. FINDINGS: Bones: No acute fractures or dislocations. Posttraumatic changes are present at the radial styloid. No suspicious bony lesions. Scaphoid view: The scaphoid is intact. Soft tissues: No suspicious soft tissue calcifications. IMPRESSION: No definite fracture visualized. There is high clinical suspicion for occult fracture, CT of the wrist is recommended. Dictated by: Cassandra Duque M.D. on 10/26/2018 at 18:35 Approved by: Cassandra Duque M.D. on 10/26/2018 at 18:36
[2018-10-26 18:02] VITALS: BP 147/71; PULSE 72; RESP 16; TEMP 36.7; O2SAT 98; BMI 32.0
--- NOTE | 2018-10-26 18:53 | ED.UPPEXIN ---
HPI - Extremity Injury (Upper) <Dejah Kang PA-C - Last Filed: 10/26/18 22:28> General Chief Complaint: Extremity Injury, Upper Stated Complaint: LT ARM PAIN S/P FALL Time Seen by Provider: 10/26/18 19:18 Source: patient Mode of arrival: ambulatory Limitations: no limitations History of Present Illness HPI narrative: This 83-year-old who has a history of balance impairment and fall states that she was walking on wooden steps when she tripped and fell onto her outstretched left wrist earlier is afternoon. She states that a couple of hours later, it was quite painful and swollen. She denies any head contusion or any other injury. She states that she has taken 2 Aleve at home and applied ice this has helped somewhat, but she is concerned about fracture. She did have an old fracture in that wrist. She states it is painful to move her fingers. She denies any weakness or paresthesia or other new complaints on systems review Related Data Home Medications Medication Instructions Recorded Confirmed fluticasone propionate 1 spray INTRANASAL QAM PRN #0 09/02/17 08/20/18 aspirin 81 mg PO DAILY 10/28/17 08/20/18 multivitamin 1 tab PO QAM 10/28/17 08/20/18 B Vitamin 1 tab PO DAILY 08/20/18 08/20/18 Vitamin D3 2 cap PO QWEEK 08/20/18 08/20/18 escitalopram oxalate 20 mg PO DAILY PRN 08/20/18 08/20/18 hydrochlorothiazide 25 mg PO DAILY 08/20/18 08/20/18 olmesartan 40 mg PO QPM 08/20/18 08/20/18 Allergies Allergy/AdvReac Type Severity Reaction Status Date / Time bupropion Allergy Mild ITCHING Verified 10/26/18 18:02 Review of Systems <Dejah Kang PA-C - Last Filed: 10/26/18 22:28> Review of Systems ROS Unobtainable: All systems reviewed & are unremarkable except as noted in HPI and below PFSH <Dejah Kang PA-C - Last Filed: 10/26/18 22:28> Medical History Allergy (Chronic Unknown) Anxiety (Chronic Unknown) Arthritis (Chronic Unknown) Depression (Chronic Unknown) Foot pain (Chronic Unknown) HTN (hypertension) (Chronic) Low back pain (Chronic Unknown) Peripheral neuropathy (Chronic Unknown) Carpal tunnel syndrome (Resolved 2014) Cataracts, bilateral (Resolved Unknown) Fecal incontinence (Resolved 10/2016) Fractures (Resolved Unknown) Surgical History H/O bladder repair surgery (Resolved Unknown) Status post hysterectomy Family History Father Heart disease Social History household members: spouse Smoking Status: Never smoker Family History Father Heart disease Social History household members: spouse Smoking Status: Never smoker Exam <Dejah Kang PA-C - Last Filed: 10/26/18 22:28> Narrative Exam Narrative: GENERAL APPEARANCE: Patient sitting comfortably, in no distress. LUNGS: Clear to auscultation bilaterally. HEART: Rate and rhythm regular without murmur, normal S1 and S2, no S3 or S4. MUSCULOSKELETAL: Left wrist there is a moderate effusion most prominent on the posterior lateral side, which is tender to touch, less tender on the lateral side. She has reduced range of motion in all smith secondary to tenderness. She has no point tenderness over the forearm, elbow, metacarpals or fingers, but has reduced range of motion in the fingers especially thumb and 1st finger secondary to wrist 10 S. strength in the fingers is intact in all smith against resistance. NEUROVASCULAR: Left hand fingers are warm and pink with brisk cap refill, sensation grossly intact Initial Vital Signs Initial Vital Signs: Vital Signs Temperature 98.0 F 10/26/18 18:02 Pulse Rate 72 10/26/18 18:02 Respiratory Rate 16 10/26/18 18:02 Blood Pressure 147/71 H 10/26/18 18:02 Pulse Oximetry 98 10/26/18 18:02 <Jean Carlos Braun MD - Last Filed: 10/27/18 05:36> Initial Vital Signs Initial Vital Signs: Vital Signs Temperature 98.0 F 10/26/18 18:02 Pulse Rate 72 10/26/18 18:02 Respiratory Rate 16 10/26/18 18:02 Blood Pressure 147/71 H 10/26/18 18:02 Pulse Oximetry 98 10/26/18 18:02 Course <Dejah Kang PA-C - Last Filed: 10/26/18 22:28> Additional Information: Jethro wrap was placed for comfort as patient already has a wrist immobilizer at home for this wrist, was not able to put on comfortably. She will start wearing that when able. She agreed to return if any acutely worsening symptoms, otherwise follow up with PCP next week for recheck. Discussed importance of repeat x-rays if not improving and she agrees Orders Ordered: ED Orders 10/26/18 18:01 XR wrist LT min 3V Stat Vital Signs - 8 hr 10/26/18 18:02 10/26/18 19:35 Temperature 98.0 F Pulse Rate 72 75 Respiratory Rate 16 16 Blood Pressure 147/71 H Blood Pressure [Right Arm] 145/85 H Pulse Oximetry 98 95 <Jean Carlos Braun MD - Last Filed: 10/27/18 05:36> Orders Ordered: ED Orders 10/26/18 18:01 XR wrist LT min 3V Stat Vital Signs - 8 hr 10/26/18 18:02 10/26/18 19:35 Temperature 98.0 F Pulse Rate 72 75 Respiratory Rate 16 16 Blood Pressure 147/71 H Blood Pressure [Right Arm] 145/85 H Pulse Oximetry 98 95 MDM - Extremity Injury (Upper) <Dejah Kang PA-C - Last Filed: 10/26/18 22:28> Imaging Data wrist: Radiologist's impression: [address] [address] XRay Report Signed Patient: Nanda Nascimento JMR#: [id number] : 5Acct:[id number] Age/Sex: 83 / FDate of Service: 10/26/18 Loc: ED Accession Number: [id number] Procedure: XR wrist LT min 3V Ordering Provider: Corby Wiseman D.O. PROCEDURE: XR WRIST LT MIN 3V INDICATIONS: injury, status post fall TECHNIQUE: 4 views of the wrist were acquired. COMPARISON: [facility], CR, XR WRIST 3VW LT, 10/24/2016, 14:55. FINDINGS: Bones: No acute fractures or dislocations. Posttraumatic changes are present at the radial styloid. No suspicious bony lesions. Scaphoid view: The scaphoid is intact. Soft tissues: No suspicious soft tissue calcifications. IMPRESSION: No definite fracture visualized. There is high clinical suspicion for occult fracture, CT of the wrist is recommended. Dictated by: Cassandra Duque M.D. on 10/26/2018 at 18:35 Approved by: Cassandra Duque M.D. on 10/26/2018 at 18:36 Discharge Plan Departure Patient Disposition: Home Clinical Impression: Sprain and strain of wrist Contusion of left wrist Qualifiers: Encounter type: initial encounter Qualified Code(s): S60.212A - Contusion of left wrist, initial encounter Discharge Date/Time: 10/26/18 19:39 Interventions: ED Discharge Assessment Last Done: 10/26/18 19:38 Instructions: DI for Wrist Sprain Activity Restrictions/Additional Instructions: Please keep the Jethro wrap on your wrist for now and when you can, start wearing your wrist immobilizer splint again. Since you have already taken Aleve today, you can add Tylenol as needed for pain. Continue ice as needed. If this is feeling better in a few days, you can continue wearing the splint and monitor it, however as we talked about if this is not feeling better in the next week, you need to keep it immobilized and have repeat x-rays, so please plan to follow up at your clinic. Please consider physical therapy for balance training if your medicine changes are not helping with her balance difficulties Prescriptions: No Action fluticasone propionate 16 GM spray,suspension 1 spray Intranasal QAM PRN (Reason: Nasal Congestion) Qty: 0 RF: 0 aspirin 81 mg Tablet,Delayed Release (Dr/Ec) 81 mg PO DAILY RF: 0 multivitamin 1 tab PO QAM RF: 0 hydrochlorothiazide 25 mg tablet 25 mg PO DAILY RF: 0 olmesartan 40 mg tablet 40 mg PO QPM RF: 0 escitalopram oxalate 20 mg tablet 20 mg PO DAILY PRN (Reason: Allergy Symptoms) RF: 0 B Vitamin 1 tab PO DAILY RF: 0 Vitamin D3 2 cap PO QWEEK RF: 0 Referrals: Verenice Castillo ARNP [Primary Care Provider] - <Jean Carlos Braun MD - Last Filed: 10/27/18 05:36> Cosign ED Attending Nohemyature Attestation: I was present in the ER at the time this patient's care. I agree with the evaluation, assessment and treatment plan.
--- NOTE | 2018-10-26 18:57 | PC.NURSE ---
Pt declines to move hand/wrist secondary to pain. States she can move it. Was walking up stairs and tripped. Fell on wrist. Denies any other injuries.
[2018-10-26 19:35] VITALS: BP 145/85; PULSE 75; RESP 16; O2SAT 95
== END 2018-10-26 19:39 | disposition home or self-care (01) ==
PROVIDERS: Emergency Provider Internal Medicine; PCP Nurse Practitioner Family
DX: S60.212A Contusion of left wrist, initial encounter (principal); W19.XXXA Unspecified fall, initial encounter
CPT/HCPCS: 73110; 99282; 99283

== ENCOUNTER 2019-06-21 09:00 | Outpatient (RCR) | payer OTHER, SELFPAY ==
--- NOTE | 2019-05-19 09:37 | PT.OIE ---
Current Diagnoses Repeated falls (05/19/19) Past Medical History (Last Reviewed 10/26/18 @ 19:40 by Dejah Kang PA-C) Allergy (Chronic Unknown) Anxiety (Chronic Unknown) Arthritis (Chronic Unknown) Carpal tunnel syndrome (Resolved 2014) Cataracts, bilateral (Resolved Unknown) Depression (Chronic Unknown) Fecal incontinence (Resolved 10/2016) Foot pain (Chronic Unknown) Fractures (Resolved Unknown) HTN (hypertension) (Chronic) Low back pain (Chronic Unknown) Peripheral neuropathy (Chronic Unknown) Past Surgical History (Last Reviewed 10/26/18 @ 19:40 by Dejah Kang PA-C) H/O bladder repair surgery (Resolved Unknown) Status post hysterectomy Visit Care Team Role Provider Type QUANG Puente Primary Care Provider Non-Staff Specialty: Medical Address: [address] [address], [id number] Email: Tanesha Anderson MD Attending Provider Physician Specialty: Family Practice Address: [address] [place] [address], [id number] Email: [email or web address] Physical Therapy Initial Evaluation PT-OP-A Visit Information Start: 05/19/19 07:30 Freq: Status: Active Protocol: Document 05/19/19 09:00 AMB (Rec: 05/19/19 16:09 AMB [email or web address]) Out-Patient Physical Therapy Visit Information Visit Information Visit Type Initial Evaluation Visit Start Time 09:00 Visit Stop Time 09:45 Total Visit Minutes 45 Visit Number 1 PT-OP-B Current Condition Start: 05/19/19 07:30 Freq: Status: Active Protocol: Document 05/19/19 09:00 AMB (Rec: 05/19/19 09:14 AMB [id number]) Current Condition History of Current Condition Onset Date months to years ago Current Complaints frequent falls History of Current Condition Nanda reports 3 falls in the last 6 months- mostly on uneven surfaces. She reports she has had 2 months on lyrica and feels like that has changed her walking, but she needs to take the lyrica for her neuropathy. Mostly falling outside- fell in basement with issues of clutter on the floor. Pt has 3 steps to enter without a rail- hasn't had too much trouble with that, does put an arm on the pillar next to the house when using the stairs. Notices most difficulty with uneven terrain, but does need to hang on the wall in the shower when closing the eyes. Gave up driving a year ago due to neuropathy. Treatment Goals Patient/Caregiver Goals Improve balance, decrease falling Prior Functional Status Baseline Function- ADL's Independent Baseline Function- Mobility Independent Current Functional Impairments (Reported) Functional Limitations- ADL's Difficulty walking over uneven terrain Personal Factors Other Personal Factors That May Effect neuropathy, orthostatic Therapy/Recovery hypotension sx, intermittent dizziness with quick head turn , history of old ankle fracture on the right. History of L ear drum surgery 30 years ago. PT-OP-C Subjective Start: 05/19/19 07:30 Freq: Status: Active Protocol: Document 05/19/19 09:00 AMB (Rec: 05/19/19 16:09 AMB [email or web address]) Patient Questionnaires ABC- Activity Specific Balance Confidence Scale ABC Score 85 ABC Functional Impairment 1 to <20% Impaired (Score 81- 99) Dizziness Handicap Inventory DHI Score 26 DHI Functional Impairment 20 to 39% Impaired (Score 20- 39) PT-OP-D Balance Start: 05/19/19 07:30 Freq: Status: Active Protocol: Document 05/19/19 09:00 AMB (Rec: 05/20/19 07:57 AMB [email or web address]) Balance Tests Single Limb Standing Single Limb- Right 3 sec Single Limb- Left 1 sec Semi-Tandem Standing Semi-Tandem Standing Balance fall with eyes closed, fall with eyes open head turn Other Other Balance Tests Performed NBOS: EC 5 sec; EO HT 30 sec PT-OP-E Functional Tests Start: 05/19/19 07:30 Freq: Status: Active Protocol: Document 05/19/19 09:00 AMB (Rec: 05/20/19 07:57 AMB [email or web address]) Functional Tests Dynamic Gait Index (DGI) Score 18 DGI Impairment Rating 20 to <40% Impaired (Score 15- 19) PT-OP-G Mobility & Gait Start: 05/19/19 07:30 Freq: Status: Active Protocol: Document 05/19/19 09:00 AMB (Rec: 05/20/19 07:57 AMB [email or web address]) OP Gait Assessment Comments Gait Comments Pt ambulates without assistive device. Veering with horizontal head turns, but otherwise able to walk in straight line with slightly reduced trunk rotation, but good gait speed. PT-OP-H Neuro Start: 05/19/19 07:30 Freq: Status: Active Protocol: Document 05/19/19 09:00 AMB (Rec: 05/20/19 07:57 AMB [email or web address]) Sensation Evaluation Location Details Right Great Toe Proprioception (Position) Impaired PT-OP-M Strength Start: 05/19/19 07:30 Freq: Status: Active Protocol: Document 05/19/19 09:00 AMB (Rec: 05/20/19 07:57 AMB [email or web address]) Ankle/Foot Strength Ankle and Foot Manual Muscle Testing Right Dorsiflexion (L4) 4+ Good+ Plantarflexion (S1) 4+ Good+ Inversion 4 Good Eversion (S1) 4 Good Left Dorsiflexion (L4) 4+ Good+ Plantarflexion (S1) 4+ Good+ Inversion 4 Good Eversion (S1) 4 Good PT-OP-O Vestibular Start: 05/20/19 08:11 Freq: Status: Active Protocol: Document 05/19/19 09:00 AMB (Rec: 05/20/19 09:28 AMB [email or web address]) Vestibular Assessment Visual Testing Smooth Pursuits Horizontal WFL Smooth Pursuits Vertical WFL Saccades Horizontal WFL Saccades Vertical WFL DVA (Line Degradation) 4 Positional Testing [place]-Hallpike Negative Left,Negative Right Rolling Test Negative Left,Negative Right PT-OP-T Assessment and Plan Start: 05/19/19 07:30 Freq: Status: Active Protocol: Document 05/19/19 09:00 AMB (Rec: 05/20/19 08:14 AMB [email or web address]) Physical Therapy Assessment Rehab Potential Rehabilitation Potential Good Evaluation Complexity Number of Personal Factors/Comorbidities 3 or More Number of Body Systems Impaired 3 Clinical Presentation at Evaluation Evolving Impairments Impairments Balance,Functional Activities, Gait,Sensation,Vestibular Goals Two Impairment Vestibular function Short Term Goal (STG) Pt will tolerate modified tadem stance with head turns for 15 seconds without loss of balance. STG Duration 4 weeks Power Sweeper Operator Goal (LTG) Nanda's DVA line change will decrease to 2 lines to show improved dynamic vision. LTG Duration 8 weeks One Impairment Balance Short Term Goal (STG) Nanda will increase her single leg stance time to 5 seconds on either leg. STG Duration 4 weeks Power Sweeper Operator Goal (LTG) The patient will show improved DGI score to 20/24 to show decreased risk of falling. LTG Duration 8 weeks Assessment Summary Assessment Nanda presents to physical therapy with multiple falls when ambulating on complex surfaces. She does have neuropathy, reduced vestibular function, and a history of some lightheadedness with positional changes. Her DGI score of 18/24 does put her in a higher risk of falling category, but with she should be able to improve this. Her neuropathy, however, will not change and this will remain a challenge for her. She will benefit from PT to help her manage her symptoms and compensate for her reduced sensation in her feet to reduce her risk of falls. Physical Therapy Plan Frequency and Duration Frequency of Treatment 1x/Week Duration of Treatment 8 weeks Plan of Care Start Date 05/19/19 Plan of Care End Date 07/14/19 Therapeutic Interventions Therapeutic Interventions Balance Training,Gait Training ,Home Exercise Program,Manual Therapy,Neuromuscular Re- education,Self-Care/Home Management,Therapeutic Activities,Therapeutic Exercises,Vestibular Rehabilitation Next Visit Focus/Plan Next Note Type Treatment Note Next Visit Plan Establish HEP that pt can safely do independently, progress gait and vestibular function
--- NOTE | 2019-05-23 13:33 | PT.OTN ---
Current Diagnoses Repeated falls (05/23/19) Physical Therapy Treatment Note PT-OP-A Visit Information Start: 05/19/19 07:30 Freq: Status: Active Protocol: Document 05/23/19 09:45 AMB (Rec: 05/24/19 08:16 AMB [email or web address]) Out-Patient Physical Therapy Visit Information Visit Information Visit Type Treatment Note Visit Start Time 09:45 Visit Stop Time 10:30 Total Visit Minutes 45 Visit Number 2 PT-OP-B Current Condition Start: 05/19/19 07:30 Freq: Status: Active Protocol: Document 05/19/19 09:00 AMB (Rec: 05/19/19 09:14 AMB [id number]) Current Condition History of Current Condition Onset Date months to years ago Current Complaints frequent falls History of Current Condition Nanda reports 3 falls in the last 6 months- mostly on uneven surfaces. She reports she has had 2 months on lyrica and feels like that has changed her walking, but she needs to take the lyrica for her neuropathy. Mostly falling outside- fell in basement with issues of clutter on the floor. Pt has 3 steps to enter without a rail- hasn't had too much trouble with that, does put an arm on the pillar next to the house when using the stairs. Notices most difficulty with uneven terrain, but does need to hang on the wall in the shower when closing the eyes. Gave up driving a year ago due to neuropathy. Treatment Goals Patient/Caregiver Goals Improve balance, decrease falling Prior Functional Status Baseline Function- ADL's Independent Baseline Function- Mobility Independent Current Functional Impairments (Reported) Functional Limitations- ADL's Difficulty walking over uneven terrain Personal Factors Other Personal Factors That May Effect neuropathy, orthostatic Therapy/Recovery hypotension sx, intermittent dizziness with quick head turn , history of old ankle fracture on the right. History of L ear drum surgery 30 years ago. PT-OP-C Subjective Start: 05/19/19 07:30 Freq: Status: Active Protocol: Document 05/23/19 09:45 AMB (Rec: 05/24/19 08:16 AMB [email or web address]) OP-PT Subjective Patient Comments Patient Comments Pt has some questions about her HEP. PT-OP-D Balance Start: 05/19/19 07:30 Freq: Status: Active Protocol: Document 05/19/19 09:00 AMB (Rec: 05/20/19 07:57 AMB [email or web address]) Balance Tests Single Limb Standing Single Limb- Right 3 sec Single Limb- Left 1 sec Semi-Tandem Standing Semi-Tandem Standing Balance fall with eyes closed, fall with eyes open head turn Other Other Balance Tests Performed NBOS: EC 5 sec; EO HT 30 sec PT-OP-E Functional Tests Start: 05/19/19 07:30 Freq: Status: Active Protocol: Document 05/19/19 09:00 AMB (Rec: 05/20/19 07:57 AMB [email or web address]) Functional Tests Dynamic Gait Index (DGI) Score 18 DGI Impairment Rating 20 to <40% Impaired (Score 15- 19) PT-OP-G Mobility & Gait Start: 05/19/19 07:30 Freq: Status: Active Protocol: Document 05/19/19 09:00 AMB (Rec: 05/20/19 07:57 AMB [email or web address]) OP Gait Assessment Comments Gait Comments Pt ambulates without assistive device. Veering with horizontal head turns, but otherwise able to walk in straight line with slightly reduced trunk rotation, but good gait speed. PT-OP-H Neuro Start: 05/19/19 07:30 Freq: Status: Active Protocol: Document 05/19/19 09:00 AMB (Rec: 05/20/19 07:57 AMB [email or web address]) Sensation Evaluation Location Details Right Great Toe Proprioception (Position) Impaired PT-OP-M Strength Start: 05/19/19 07:30 Freq: Status: Active Protocol: Document 05/19/19 09:00 AMB (Rec: 05/20/19 07:57 AMB [email or web address]) Ankle/Foot Strength Ankle and Foot Manual Muscle Testing Right Dorsiflexion (L4) 4+ Good+ Plantarflexion (S1) 4+ Good+ Inversion 4 Good Eversion (S1) 4 Good Left Dorsiflexion (L4) 4+ Good+ Plantarflexion (S1) 4+ Good+ Inversion 4 Good Eversion (S1) 4 Good PT-OP-O Vestibular Start: 05/20/19 08:11 Freq: Status: Active Protocol: Document 05/19/19 09:00 AMB (Rec: 05/20/19 09:28 AMB [email or web address]) Vestibular Assessment Visual Testing Smooth Pursuits Horizontal WFL Smooth Pursuits Vertical WFL Saccades Horizontal WFL Saccades Vertical WFL DVA (Line Degradation) 4 Positional Testing [place]-Hallpike Negative Left,Negative Right Rolling Test Negative Left,Negative Right PT-OP-Q Treatments Start: 05/19/19 07:30 Freq: Status: Active Protocol: Document 05/23/19 09:45 AMB (Rec: 05/24/19 08:16 AMB [email or web address]) Gym Equipment Shuttle Balance 1 Details BLUE Reps/Duration 10 min Comments a/p and lat. WBOS and stride stance, Eyes open head turns Therapeutic Exercises Standing Exercises 1 Standing Exercise Name calf stretch on JASMIN Reps/Minutes 30x2 Neuro Re-Education Treatment Balance Activities 3 Details stride stance Comments head turns horizontal 2 Details NBOS eyes closed Surface firm 1 Details NBOS eyes open horizontal and vertical head turns Surface blue foam PT-OP-T Assessment and Plan Start: 05/19/19 07:30 Freq: Status: Active Protocol: Document 05/23/19 09:45 AMB (Rec: 05/24/19 08:16 AMB [email or web address]) Physical Therapy Assessment Assessment Summary Assessment Nanda did well with balance exercises today. So far HEP includes modified tandem stance with eyes open and head turns and NBOS eyes closed, with the instruction to always be next to something sturdy when she is practicing at home . Physical Therapy Plan Next Visit Focus/Plan Next Note Type Treatment Note Next Visit Plan Establish HEP that pt can safely do independently, progress gait and vestibular function
--- NOTE | 2019-05-31 11:15 | PT.OTN ---
Current Diagnoses Repeated falls (05/31/19) Physical Therapy Treatment Note PT-OP-A Visit Information Start: 05/19/19 07:30 Freq: Status: Active Protocol: Document 05/31/19 10:32 SP (Rec: 05/31/19 11:32 SP [id number]) Out-Patient Physical Therapy Visit Information Visit Information Visit Type Treatment Note Visit Start Time 10:32 Visit Stop Time 11:15 Total Visit Minutes 43 Visit Number 3 Number of FOOD SERVER Visits 1 PT-OP-B Current Condition Start: 05/19/19 07:30 Freq: Status: Active Protocol: Document 05/19/19 09:00 AMB (Rec: 05/19/19 09:14 AMB [id number]) Current Condition History of Current Condition Onset Date months to years ago Current Complaints frequent falls History of Current Condition Nanda reports 3 falls in the last 6 months- mostly on uneven surfaces. She reports she has had 2 months on lyrica and feels like that has changed her walking, but she needs to take the lyrica for her neuropathy. Mostly falling outside- fell in basement with issues of clutter on the floor. Pt has 3 steps to enter without a rail- hasn't had too much trouble with that, does put an arm on the pillar next to the house when using the stairs. Notices most difficulty with uneven terrain, but does need to hang on the wall in the shower when closing the eyes. Gave up driving a year ago due to neuropathy. Treatment Goals Patient/Caregiver Goals Improve balance, decrease falling Prior Functional Status Baseline Function- ADL's Independent Baseline Function- Mobility Independent Current Functional Impairments (Reported) Functional Limitations- ADL's Difficulty walking over uneven terrain Personal Factors Other Personal Factors That May Effect neuropathy, orthostatic Therapy/Recovery hypotension sx, intermittent dizziness with quick head turn , history of old ankle fracture on the right. History of L ear drum surgery 30 years ago. PT-OP-C Subjective Start: 05/19/19 07:30 Freq: Status: Active Protocol: Document 05/31/19 10:32 SP (Rec: 05/31/19 11:32 SP [id number]) OP-PT Subjective Patient Comments Patient Comments Pt stated hasn't really done much of the exercises given last visit, wanted to review. PT-OP-D Balance Start: 05/19/19 07:30 Freq: Status: Active Protocol: Document 05/19/19 09:00 AMB (Rec: 05/20/19 07:57 AMB [email or web address]) Balance Tests Single Limb Standing Single Limb- Right 3 sec Single Limb- Left 1 sec Semi-Tandem Standing Semi-Tandem Standing Balance fall with eyes closed, fall with eyes open head turn Other Other Balance Tests Performed NBOS: EC 5 sec; EO HT 30 sec PT-OP-E Functional Tests Start: 05/19/19 07:30 Freq: Status: Active Protocol: Document 05/19/19 09:00 AMB (Rec: 05/20/19 07:57 AMB [email or web address]) Functional Tests Dynamic Gait Index (DGI) Score 18 DGI Impairment Rating 20 to <40% Impaired (Score 15- 19) PT-OP-G Mobility & Gait Start: 05/19/19 07:30 Freq: Status: Active Protocol: Document 05/19/19 09:00 AMB (Rec: 05/20/19 07:57 AMB [email or web address]) OP Gait Assessment Comments Gait Comments Pt ambulates without assistive device. Veering with horizontal head turns, but otherwise able to walk in straight line with slightly reduced trunk rotation, but good gait speed. PT-OP-H Neuro Start: 05/19/19 07:30 Freq: Status: Active Protocol: Document 05/19/19 09:00 AMB (Rec: 05/20/19 07:57 AMB [email or web address]) Sensation Evaluation Location Details Right Great Toe Proprioception (Position) Impaired PT-OP-M Strength Start: 05/19/19 07:30 Freq: Status: Active Protocol: Document 05/19/19 09:00 AMB (Rec: 05/20/19 07:57 AMB [email or web address]) Ankle/Foot Strength Ankle and Foot Manual Muscle Testing Right Dorsiflexion (L4) 4+ Good+ Plantarflexion (S1) 4+ Good+ Inversion 4 Good Eversion (S1) 4 Good Left Dorsiflexion (L4) 4+ Good+ Plantarflexion (S1) 4+ Good+ Inversion 4 Good Eversion (S1) 4 Good PT-OP-O Vestibular Start: 05/20/19 08:11 Freq: Status: Active Protocol: Document 05/19/19 09:00 AMB (Rec: 05/20/19 09:28 AMB [email or web address]) Vestibular Assessment Visual Testing Smooth Pursuits Horizontal WFL Smooth Pursuits Vertical WFL Saccades Horizontal WFL Saccades Vertical WFL DVA (Line Degradation) 4 Positional Testing Liz[place]-Hallpike Negative Left,Negative Right Rolling Test Negative Left,Negative Right PT-OP-Q Treatments Start: 05/19/19 07:30 Freq: Status: Active Protocol: Document 05/31/19 10:32 SP (Rec: 05/31/19 11:32 SP [id number]) Therapeutic Exercises Sitting Exercises eccentric squat taps Equipment Used 18 chair Reps/Minutes 5x3 sets Comments no UE support Neuro Re-Education Treatment Balance Activities forward high knee walking Details forward high knee walking Surface stable Reps/Duration 10 ft x2 laps Comments cued slow wt shift over stationary LE, find center then move into high knee and controlled descent to floor step over katarzyna Details step to gait Surface stable Equipment hurdles Reps/Duration 10 ft x3 laps Comments cued wt shift over stationary LE and hip flexion for foot clearance step tap katarzyna Details step tap Surface stable Equipment Katarzyna (step home) Reps/Duration 2x10 Comments alternate LE 3 Details stride stance Reps/Duration 3 sets 20-60 sec Comments head turns horizontal, cued initially find target to look at and wt between B feet triangle 2 Details NBOS eyes closed Surface firm Reps/Duration 3 sets, 20 to 60 sec Comments cued upright posture and weight over foot triangle. PT-OP-T Assessment and Plan Start: 05/19/19 07:30 Freq: Status: Active Protocol: Document 05/31/19 10:32 SP (Rec: 05/31/19 11:32 SP [id number]) Physical Therapy Assessment Goals Two Impairment Vestibular function Short Term Goal (STG) Pt will tolerate modified tadem stance with head turns for 15 seconds without loss of balance. STG Duration 4 weeks Baling Press Operator Goal (LTG) Nanda's DVA line change will decrease to 2 lines to show improved dynamic vision. LTG Duration 8 weeks One Impairment Balance Short Term Goal (STG) Nanda will increase her single leg stance time to 5 seconds on either leg. STG Duration 4 weeks Baling Press Operator Goal (LTG) The patient will show improved DGI score to 20/24 to show decreased risk of falling. LTG Duration 8 weeks Assessment Summary Assessment Nanda had good recall of proper form of HEP, cued for target to look at during head turns and able to complete up to a minute with decreased sway as time progressed. Added dynamic activities today. Cued slow controlled movements during SLS stepping activities to increased COG over INEZ awareness with improvement in self recovery and decreased instances of LOB . Physical Therapy Plan Frequency and Duration Frequency of Treatment 1x/Week Duration of Treatment 8 weeks Plan of Care Start Date 05/19/19 Plan of Care End Date 07/14/19 Therapeutic Interventions Therapeutic Interventions Balance Training,Gait Training ,Home Exercise Program,Manual Therapy,Neuromuscular Re- education,Self-Care/Home Management,Therapeutic Activities,Therapeutic Exercises,Vestibular Rehabilitation Next Visit Focus/Plan Next Note Type Treatment Note Next Visit Plan Assess added dynamic step taps , high knee marching, eccentric squat taps to chair. Continue per PT POC: Establish HEP that pt can safely do independently, progress gait and vestibular function
--- NOTE | 2019-06-14 11:38 | PT.OTN ---
Current Diagnoses Repeated falls (06/14/19) Physical Therapy Treatment Note PT-OP-A Visit Information Start: 05/19/19 07:30 Freq: Status: Active Protocol: Document 06/14/19 08:15 AMB (Rec: 06/14/19 11:38 AMB [email or web address]) Out-Patient Physical Therapy Visit Information Visit Information Visit Type Treatment Note Visit Start Time 08:15 Visit Stop Time 09:00 Total Visit Minutes 45 Visit Number 4 Number of INDUCTION FURNACE OPERATOR Visits 0 PT-OP-B Current Condition Start: 05/19/19 07:30 Freq: Status: Active Protocol: Document 05/19/19 09:00 AMB (Rec: 05/19/19 09:14 AMB [id number]) Current Condition History of Current Condition Onset Date months to years ago Current Complaints frequent falls History of Current Condition Nanda reports 3 falls in the last 6 months- mostly on uneven surfaces. She reports she has had 2 months on lyrica and feels like that has changed her walking, but she needs to take the lyrica for her neuropathy. Mostly falling outside- fell in basement with issues of clutter on the floor. Pt has 3 steps to enter without a rail- hasn't had too much trouble with that, does put an arm on the pillar next to the house when using the stairs. Notices most difficulty with uneven terrain, but does need to hang on the wall in the shower when closing the eyes. Gave up driving a year ago due to neuropathy. Treatment Goals Patient/Caregiver Goals Improve balance, decrease falling Prior Functional Status Baseline Function- ADL's Independent Baseline Function- Mobility Independent Current Functional Impairments (Reported) Functional Limitations- ADL's Difficulty walking over uneven terrain Personal Factors Other Personal Factors That May Effect neuropathy, orthostatic Therapy/Recovery hypotension sx, intermittent dizziness with quick head turn , history of old ankle fracture on the right. History of L ear drum surgery 30 years ago. PT-OP-C Subjective Start: 05/19/19 07:30 Freq: Status: Active Protocol: Document 06/14/19 08:15 AMB (Rec: 06/14/19 11:38 AMB [email or web address]) OP-PT Subjective Patient Comments Patient Comments Pt is wondering how much further PT she will need. PT-OP-D Balance Start: 05/19/19 07:30 Freq: Status: Active Protocol: Document 05/19/19 09:00 AMB (Rec: 05/20/19 07:57 AMB [email or web address]) Balance Tests Single Limb Standing Single Limb- Right 3 sec Single Limb- Left 1 sec Semi-Tandem Standing Semi-Tandem Standing Balance fall with eyes closed, fall with eyes open head turn Other Other Balance Tests Performed NBOS: EC 5 sec; EO HT 30 sec PT-OP-E Functional Tests Start: 05/19/19 07:30 Freq: Status: Active Protocol: Document 05/19/19 09:00 AMB (Rec: 05/20/19 07:57 AMB [email or web address]) Functional Tests Dynamic Gait Index (DGI) Score 18 DGI Impairment Rating 20 to <40% Impaired (Score 15- 19) PT-OP-G Mobility & Gait Start: 05/19/19 07:30 Freq: Status: Active Protocol: Document 05/19/19 09:00 AMB (Rec: 05/20/19 07:57 AMB [email or web address]) OP Gait Assessment Comments Gait Comments Pt ambulates without assistive device. Veering with horizontal head turns, but otherwise able to walk in straight line with slightly reduced trunk rotation, but good gait speed. PT-OP-H Neuro Start: 05/19/19 07:30 Freq: Status: Active Protocol: Document 05/19/19 09:00 AMB (Rec: 05/20/19 07:57 AMB [email or web address]) Sensation Evaluation Location Details Right Great Toe Proprioception (Position) Impaired PT-OP-M Strength Start: 05/19/19 07:30 Freq: Status: Active Protocol: Document 05/19/19 09:00 AMB (Rec: 05/20/19 07:57 AMB [email or web address]) Ankle/Foot Strength Ankle and Foot Manual Muscle Testing Right Dorsiflexion (L4) 4+ Good+ Plantarflexion (S1) 4+ Good+ Inversion 4 Good Eversion (S1) 4 Good Left Dorsiflexion (L4) 4+ Good+ Plantarflexion (S1) 4+ Good+ Inversion 4 Good Eversion (S1) 4 Good PT-OP-O Vestibular Start: 05/20/19 08:11 Freq: Status: Active Protocol: Document 05/19/19 09:00 AMB (Rec: 05/20/19 09:28 AMB [email or web address]) Vestibular Assessment Visual Testing Smooth Pursuits Horizontal WFL Smooth Pursuits Vertical WFL Saccades Horizontal WFL Saccades Vertical WFL DVA (Line Degradation) 4 Positional Testing Lizet-Hallpike Negative Left,Negative Right Rolling Test Negative Left,Negative Right PT-OP-Q Treatments Start: 05/19/19 07:30 Freq: Status: Active Protocol: Document 06/14/19 08:15 AMB (Rec: 06/14/19 11:38 AMB [email or web address]) Therapeutic Exercises Sitting Exercises eccentric squat taps Equipment Used 18 chair Reps/Minutes 5x3 sets Comments no UE support Standing Exercises 2 Standing Exercise Name lunges Reps/Minutes 2x10 Comments HEP- with rail close by 1 Standing Exercise Name calf stretch on JASMIN Reps/Minutes 30x2 Neuro Re-Education Treatment Balance Activities forward high knee walking Details forward high knee walking Surface stable Reps/Duration 10 ft x2 laps Comments cued slow wt shift over stationary LE, find center then move into high knee and controlled descent to floor step over katarzyna Details step to gait Surface stable Equipment hurdles Reps/Duration 10 ft x3 laps Comments cued wt shift over stationary LE and hip flexion for foot clearance-- added foam to hurdles- more challenging step tap katarzyna Details step tap Surface stable Equipment 6 step Reps/Duration 3x10 Comments alternate LE 3 Details stride stance Reps/Duration 3 sets 20-60 sec Comments head turns horizontal, cued initially find target to look at and wt between B feet triangle 2 Details NBOS eyes closed Surface firm Reps/Duration 3 sets, 20 to 60 sec Comments cued upright posture and weight over foot triangle. PT-OP-T Assessment and Plan Start: 05/19/19 07:30 Freq: Status: Active Protocol: Document 06/14/19 08:15 AMB (Rec: 06/14/19 11:38 AMB [email or web address]) Physical Therapy Assessment Assessment Summary Assessment Pt doing well with new exercises. She continues to have difficulty with single leg stance and head turn activities. Physical Therapy Plan Next Visit Focus/Plan Next Note Type Treatment Note Next Visit Plan Assess added lunges and calf stretch, re-evaluate DGI to assess pt if she can d/c soon.
--- NOTE | 2019-06-21 12:00 | PT.OTN ---
Current Diagnoses Repeated falls (06/21/19) Physical Therapy Treatment Note PT-OP-A Visit Information Start: 05/19/19 07:30 Freq: Status: Active Protocol: Document 06/21/19 08:54 AMB (Rec: 06/21/19 10:00 AMB [email or web address]) Out-Patient Physical Therapy Visit Information Visit Information Visit Type Treatment Note Visit Start Time 09:00 Visit Stop Time 09:45 Total Visit Minutes 45 Visit Number 5 PT-OP-B Current Condition Start: 05/19/19 07:30 Freq: Status: Active Protocol: Document 05/19/19 09:00 AMB (Rec: 05/19/19 09:14 AMB [id number]) Current Condition History of Current Condition Onset Date months to years ago Current Complaints frequent falls History of Current Condition Nanda reports 3 falls in the last 6 months- mostly on uneven surfaces. She reports she has had 2 months on lyrica and feels like that has changed her walking, but she needs to take the lyrica for her neuropathy. Mostly falling outside- fell in basement with issues of clutter on the floor. Pt has 3 steps to enter without a rail- hasn't had too much trouble with that, does put an arm on the pillar next to the house when using the stairs. Notices most difficulty with uneven terrain, but does need to hang on the wall in the shower when closing the eyes. Gave up driving a year ago due to neuropathy. Treatment Goals Patient/Caregiver Goals Improve balance, decrease falling Prior Functional Status Baseline Function- ADL's Independent Baseline Function- Mobility Independent Current Functional Impairments (Reported) Functional Limitations- ADL's Difficulty walking over uneven terrain Personal Factors Other Personal Factors That May Effect neuropathy, orthostatic Therapy/Recovery hypotension sx, intermittent dizziness with quick head turn , history of old ankle fracture on the right. History of L ear drum surgery 30 years ago. PT-OP-C Subjective Start: 05/19/19 07:30 Freq: Status: Active Protocol: Document 06/21/19 08:54 AMB (Rec: 06/21/19 10:00 AMB [email or web address]) OP-PT Subjective Patient Comments Patient Comments Pt reports she had to not take any lyrica for 3 days due to insurance issues not filling her new prescription. She has noticed more symptoms since being back on it for the last 3 days as far as feeling more off balance and having more painful neuropathy at night. PT-OP-D Balance Start: 05/19/19 07:30 Freq: Status: Active Protocol: Document 05/19/19 09:00 AMB (Rec: 05/20/19 07:57 AMB [email or web address]) Balance Tests Single Limb Standing Single Limb- Right 3 sec Single Limb- Left 1 sec Semi-Tandem Standing Semi-Tandem Standing Balance fall with eyes closed, fall with eyes open head turn Other Other Balance Tests Performed NBOS: EC 5 sec; EO HT 30 sec PT-OP-E Functional Tests Start: 05/19/19 07:30 Freq: Status: Active Protocol: Document 05/19/19 09:00 AMB (Rec: 05/20/19 07:57 AMB [email or web address]) Functional Tests Dynamic Gait Index (DGI) Score 18 DGI Impairment Rating 20 to <40% Impaired (Score 15- 19) PT-OP-G Mobility & Gait Start: 05/19/19 07:30 Freq: Status: Active Protocol: Document 05/19/19 09:00 AMB (Rec: 05/20/19 07:57 AMB [email or web address]) OP Gait Assessment Comments Gait Comments Pt ambulates without assistive device. Veering with horizontal head turns, but otherwise able to walk in straight line with slightly reduced trunk rotation, but good gait speed. PT-OP-H Neuro Start: 05/19/19 07:30 Freq: Status: Active Protocol: Document 05/19/19 09:00 AMB (Rec: 05/20/19 07:57 AMB [email or web address]) Sensation Evaluation Location Details Right Great Toe Proprioception (Position) Impaired PT-OP-M Strength Start: 05/19/19 07:30 Freq: Status: Active Protocol: Document 05/19/19 09:00 AMB (Rec: 05/20/19 07:57 AMB [email or web address]) Ankle/Foot Strength Ankle and Foot Manual Muscle Testing Right Dorsiflexion (L4) 4+ Good+ Plantarflexion (S1) 4+ Good+ Inversion 4 Good Eversion (S1) 4 Good Left Dorsiflexion (L4) 4+ Good+ Plantarflexion (S1) 4+ Good+ Inversion 4 Good Eversion (S1) 4 Good PT-OP-O Vestibular Start: 05/20/19 08:11 Freq: Status: Active Protocol: Document 05/19/19 09:00 AMB (Rec: 05/20/19 09:28 AMB [email or web address]) Vestibular Assessment Visual Testing Smooth Pursuits Horizontal WFL Smooth Pursuits Vertical WFL Saccades Horizontal WFL Saccades Vertical WFL DVA (Line Degradation) 4 Positional Testing [place]-Hallpike Negative Left,Negative Right Rolling Test Negative Left,Negative Right PT-OP-Q Treatments Start: 05/19/19 07:30 Freq: Status: Active Protocol: Document 06/21/19 08:54 AMB (Rec: 06/21/19 10:00 AMB [email or web address]) Neuro Re-Education Treatment Balance Activities forward high knee walking Details forward high knee walking Surface stable Reps/Duration 10 ft x2 laps Comments cued slow wt shift over stationary LE, find center then move into high knee and controlled descent to floor step over katarzyna Details step to gait Surface stable Equipment hurdles Reps/Duration 10 ft x3 laps Comments cued wt shift over stationary LE and hip flexion for foot clearance-- added foam to hurdles- more challenging 3 Details stride stance Reps/Duration 3 sets 20-60 sec Comments head turns horizontal, cued initially find target to look at and wt between B feet triangle 2 Details NBOS eyes closed Surface firm Reps/Duration 3 sets, 20 to 60 sec Comments cued upright posture and weight over foot triangle. 1 Details DGI testing Comments - difficulty with walking with headturns PT-OP-T Assessment and Plan Start: 05/19/19 07:30 Freq: Status: Active Protocol: Document 06/21/19 08:54 AMB (Rec: 06/21/19 09:34 AMB [id number]) Physical Therapy Assessment Goals Two Impairment Vestibular function Short Term Goal (STG) Pt will tolerate modified tadem stance with head turns for 15 seconds without loss of balance. STG Duration 4 weeks Snf Goal (LTG) Nanda's DVA line change will decrease to 2 lines to show improved dynamic vision. LTG Duration 8 weeks One Impairment Balance Short Term Goal (STG) Nanda will increase her single leg stance time to 5 seconds on either leg. STG Duration 4 weeks Snf Goal (LTG) The patient will show improved DGI score to 20/24 to show decreased risk of falling. LTG Duration 8 weeks Assessment Summary Assessment Nanda admits she hasn't been as good with her exercises. Testing emanuel, she is at about the same level as at eval. Hopefully as her body gets back used to the lyrica and she is more consistent with her HEP after the holidays she will improve. Plan for 1-2 more visits as she is then going on a cruise and is hoping to be done with PT before then. Physical Therapy Plan Next Visit Focus/Plan Next Note Type Treatment Note Next Visit Plan Reassess balance plan for d/c reassess HEP.
--- NOTE | 2019-08-18 10:49 | PT.OPDS ---
Current Diagnoses Repeated falls (06/21/19) Visit Care Team Role Provider Type QUANG Puente Primary Care Provider Non-Staff Specialty: Medical Address: [facility] [place], [address] Email: Tanesha Anderson MD Attending Provider Physician Specialty: Family Practice Address: [facility], [place], [address] Email: [email or web address] Visit Number Visit Number 5 Discharge Summary PT-OP-B Current Condition Start: 05/19/19 07:30 Freq: Status: Active Protocol: Document 05/19/19 09:00 AMB (Rec: 05/19/19 09:14 AMB [id number]) Current Condition History of Current Condition Onset Date months to years ago Current Complaints frequent falls History of Current Condition Nanda reports 3 falls in the last 6 months- mostly on uneven surfaces. She reports she has had 2 months on lyrica and feels like that has changed her walking, but she needs to take the lyrica for her neuropathy. Mostly falling outside- fell in basement with issues of clutter on the floor. Pt has 3 steps to enter without a rail- hasn't had too much trouble with that, does put an arm on the pillar next to the house when using the stairs. Notices most difficulty with uneven terrain, but does need to hang on the wall in the shower when closing the eyes. Gave up driving a year ago due to neuropathy. Treatment Goals Patient/Caregiver Goals Improve balance, decrease falling Prior Functional Status Baseline Function- ADL's Independent Baseline Function- Mobility Independent Current Functional Impairments (Reported) Functional Limitations- ADL's Difficulty walking over uneven terrain Personal Factors Other Personal Factors That May Effect neuropathy, orthostatic Therapy/Recovery hypotension sx, intermittent dizziness with quick head turn , history of old ankle fracture on the right. History of L ear drum surgery 30 years ago. PT-OP-C Subjective Start: 05/19/19 07:30 Freq: Status: Active Protocol: Document 06/21/19 08:54 AMB (Rec: 06/21/19 10:00 AMB [email or web address]) OP-PT Subjective Patient Comments Patient Comments Pt reports she had to not take any lyrica for 3 days due to insurance issues not filling her new prescription. She has noticed more symptoms since being back on it for the last 3 days as far as feeling more off balance and having more painful neuropathy at night. PT-OP-D Balance Start: 05/19/19 07:30 Freq: Status: Active Protocol: Document 05/19/19 09:00 AMB (Rec: 05/20/19 07:57 AMB [email or web address]) Balance Tests Single Limb Standing Single Limb- Right 3 sec Single Limb- Left 1 sec Semi-Tandem Standing Semi-Tandem Standing Balance fall with eyes closed, fall with eyes open head turn Other Other Balance Tests Performed NBOS: EC 5 sec; EO HT 30 sec PT-OP-E Functional Tests Start: 05/19/19 07:30 Freq: Status: Active Protocol: Document 05/19/19 09:00 AMB (Rec: 05/20/19 07:57 AMB [email or web address]) Functional Tests Dynamic Gait Index (DGI) Score 18 DGI Impairment Rating 20 to <40% Impaired (Score 15- 19) PT-OP-G Mobility & Gait Start: 05/19/19 07:30 Freq: Status: Active Protocol: Document 05/19/19 09:00 AMB (Rec: 05/20/19 07:57 AMB [email or web address]) OP Gait Assessment Comments Gait Comments Pt ambulates without assistive device. Veering with horizontal head turns, but otherwise able to walk in straight line with slightly reduced trunk rotation, but good gait speed. PT-OP-H Neuro Start: 05/19/19 07:30 Freq: Status: Active Protocol: Document 05/19/19 09:00 AMB (Rec: 05/20/19 07:57 AMB [email or web address]) Sensation Evaluation Location Details Right Great Toe Proprioception (Position) Impaired PT-OP-M Strength Start: 05/19/19 07:30 Freq: Status: Active Protocol: Document 05/19/19 09:00 AMB (Rec: 05/20/19 07:57 AMB [email or web address]) Ankle/Foot Strength Ankle and Foot Manual Muscle Testing Right Dorsiflexion (L4) 4+ Good+ Plantarflexion (S1) 4+ Good+ Inversion 4 Good Eversion (S1) 4 Good Left Dorsiflexion (L4) 4+ Good+ Plantarflexion (S1) 4+ Good+ Inversion 4 Good Eversion (S1) 4 Good PT-OP-O Vestibular Start: 05/20/19 08:11 Freq: Status: Active Protocol: Document 05/19/19 09:00 AMB (Rec: 05/20/19 09:28 AMB [email or web address]) Vestibular Assessment Visual Testing Smooth Pursuits Horizontal WFL Smooth Pursuits Vertical WFL Saccades Horizontal WFL Saccades Vertical WFL DVA (Line Degradation) 4 Positional Testing Lizet-Hallpike Negative Left,Negative Right Rolling Test Negative Left,Negative Right PT-OP-T Assessment and Plan Start: 05/19/19 07:30 Freq: Status: Active Protocol: Document 08/18/19 10:28 AMB (Rec: 08/18/19 10:49 AMB [email or web address]) Physical Therapy Assessment Goals Two Impairment Vestibular function Short Term Goal (STG) Pt will tolerate modified tadem stance with head turns for 15 seconds without loss of balance. STG Duration MET Cable Television Access Coordinator Goal (LTG) Nanda's DVA line change will decrease to 2 lines to show improved dynamic vision. LTG Duration NOT MET One Impairment Balance Short Term Goal (STG) Nanda will increase her single leg stance time to 5 seconds on either leg. STG Duration NOT MET Half-Way Goal (LTG) The patient will show improved DGI score to 20/24 to show decreased risk of falling. LTG Duration NOT MET Assessment Summary Assessment Nanda attended 5 appointments of physical therapy. At her last appointment in June, she stated it had been hard for her to keep up with her exercises over the holidays. Her DGI had not changed, and she had been noticing difficulty with her medications that was impacting her balance. She then canceled her last appointment due to the snow, and then did not make any more appointments because she was going on a cruise. She is discharged at this time due to not following up or making further appointments, although she remained a fall risk, she had been instrcted in a balance home exercise program. Physical Therapy Plan Discharge Physical Therapy Discharge Reasons No Longer Attending PT
== END 2019-08-19 08:21 ==
LOC: PHYS 09:00
PROVIDERS: PCP Nurse Practitioner Family; Visit Provider Student in an Organized Health Care Education/Training Program
DX: R29.6 Repeated falls (principal)
CPT/HCPCS: 97112; 97162

== ENCOUNTER → 2019-10-21 15:58 | Outpatient (CLI) | payer OTHER, SELFPAY ==
--- NOTE | 2019-10-21 16:03 | DI.RAD.S_ITS ---
PROCEDURE: XR CHEST 2V INDICATIONS: HYPOTENSION,LIGHTHEADED TECHNIQUE: 2 views of the chest were acquired. COMPARISON: [facility], CR, XR CHEST 1V, 08/20/2018, 11:47. FINDINGS: Surgical changes and devices: None. Lungs and pleura: Lungs are clear. No pleural effusions or pneumothorax. Mediastinum: Mediastinal contours are normal. Heart size is normal. Bones and chest wall: No suspicious bony abnormalities. Soft tissues appear unremarkable. IMPRESSION: No acute pulmonary process. Dictated by: Silvana Pitts M.D. on 10/21/2019 at 17:34 Approved by: Silvana Pitts M.D. on 10/21/2019 at 17:34
== END ==
PROVIDERS: Referring Provider Student in an Organized Health Care Education/Training Program; Visit Provider Student in an Organized Health Care Education/Training Program
DX: I95.9 Hypotension, unspecified (principal); R42 Dizziness and giddiness
CPT/HCPCS: 71046

== ENCOUNTER → 2019-12-08 14:39 | Outpatient (CLI) | payer OTHER, SELFPAY ==
--- NOTE | 2019-12-08 14:55 | DI.ECHO.S_ITS ---
Echocardiogram Report + + :Name: REMINGTON FARRIS Study Date: 12/08/2019 Height: 62 in : :[facility] Exam Location: [facility] Weight: 188 lb : : Gender: Female BSA: 1.9 m2 : :: 1935 Age: 84 yrs BP: 142/68 mmHg: : Performed By: Isamar Page : + + Interpretation Summary 1) Normal left ventricular thickness, size, wall motion, and systolic function (EF 60-65%). 2) The right ventricle is mildly dilated. The right ventricular systolic function is normal. 3) There is moderate aortic stenosis (valve area 1.3cm2, mean gradient 22.4mmHg). 4) There is mild to moderate tricuspid regurgitation. 5) Compared to the Echo done 08/07/2014, moderate aortic stenosis and mildmoderate tricupid regurgitation are present on this study. Procedure: A two-dimensional transthoracic echocardiogram with color flow and Doppler was performed. The study quality was technically adequate. Comparison is made with the echocardiogram of 08/07/2014. The patient was in normal sinus rhythm during the exam. Left Ventricle: The left ventricle is normal in size, wall thickness, and systolic function without any focal wall motion abnormalities. The ejection fraction is estimated to be 60-65%. Right Ventricle: The right ventricle is mildly dilated. The right ventricular systolic function is normal. Atria: The left atrium is moderately dilated. The right atrium is mildly dilated. There is no Doppler evidence for an interatrial shunt. Mitral Valve: The mitral valve is normal in structure and function. There is mild mitral regurgitation. Aortic Valve: The aortic valve is trileaflet. The aortic valve is mildly calcified. The peak aortic velocity is 3.1 m/sec. The peak aortic velocity on the previous exam was 1.9 m/sec. The aortic valve mean gradient is 22.4 mmHg. The calculated aortic valve area is 1.3 cm2. The aortic valve area is 1.5 centimeters squared by planimetry. There is moderate aortic stenosis. No aortic regurgitation is present. Tricuspid Valve: The tricuspid valve is normal in structure and function. There is mild to moderate tricuspid regurgitation. Pulmonic Valve: The pulmonic valve is not well seen, but is grossly normal. There is a trace or physiologic amount of pulmonic regurgitation. Great Vessels: The aortic root is normal size. The ascending aorta is normal in size. The pulmonary artery is not well visualized, but is probably normal size. The IVC is dilated (diameter is greater than 2.1 cm) yet it collapses greater than 50% with a sniff. This suggests a right atrial pressure of 8 mm Hg. Pericardium/ Pleura There is no pericardial effusion. There is no pleural effusion. MMode/2D Measurements & Calculations LVIDd: 4.3 cm LVOT diam: 2.0 cm LVIDs: 2.1 cm Ao root diam: 3.1 cm FS: 50.2 % asc Aorta Diam: 3.5 cm IVSd: 0.72 cm LVPWd: 0.73 cm LV bower. diameter/BSA (cm/m^2): 2.3 LV sys. diameter/BSA (cm/m^2): 1.2 LA A2 area: 22.2 cm2 RA long axis: 5.8 cm LA A4 area: 26.5 cm2 RA area: 19.9 cm2 LA length (vol): 5.8 cm RA vol: 58.1 ml LA vol: 85.3 ml RA : 31.2 ml/m2 LA vol index: 45.8 ml/m2 IVC diam: 2.3 cm RVD1 (basal): 4.4 cm TAPSE: 2.4 cm Doppler Measurements & Calculations Ao V2 max: 307.5 cm/sec LVOT Max Rogerio: 116.8 cm/sec Ao V2 mean: 229.1 cm/sec LV V1 max P.5 mmHg Ao max P.8 mmHg LV V1 VTI: 26.6 cm Ao mean P.4 mmHg JOSEPH(I,D): 1.3 cm2 Ao V2 VTI: 66.1 cm JOSEPH(V,D): 1.2 cm2 sev ratio: 0.40 JOSEPH indexed to BSA (cm^2/m^2): 0.71 MV E max rogerio: 81.2 cm/sec TR max rogerio: 258.0 cm/sec MV A max rogerio: 67.1 cm/sec TR max P.6 mmHg MV E/A: 1.2 PA V2 max: 66.1 cm/sec Med Peak E' Rogerio: 4.8 cm/sec PA V2 mean: 52.7 cm/sec E/E' med: 17.0 PA mean P.2 mmHg Lat Peak E' Rogerio: 8.8 cm/sec PA Accel Time: 0.13 sec E/E' lat: 9.2 E/e' average: 13.1 MV dec time: 0.20 sec SV(LVOT): 87.2 ml Reading Physician:05:31 PM
== END ==
PROVIDERS: PCP Student in an Organized Health Care Education/Training Program; Referring Provider Student in an Organized Health Care Education/Training Program; Visit Provider Student in an Organized Health Care Education/Training Program
DX: I08.3 Combined rheumatic disorders of mitral, aortic and tricuspid valves (principal); I95.9 Hypotension, unspecified; M85.852 Other specified disorders of bone density and structure, left thigh; Z78.0 Asymptomatic menopausal state
CPT/HCPCS: 77080; 93306

== ENCOUNTER 2020-02-23 09:20 | Outpatient (RCR) | payer OTHER, SELFPAY ==
--- NOTE | 2020-02-23 18:20 | PT.OIE ---
Current Diagnoses Muscle weakness (generalized) (02/23/20) Other reduced mobility (02/23/20) Past Medical History (Last Reviewed 10/26/18 @ 19:40 by Dejah Kang PA-C) Allergy (Chronic Unknown) Anxiety (Chronic Unknown) Arthritis (Chronic Unknown) Carpal tunnel syndrome (Resolved 2014) Cataracts, bilateral (Resolved Unknown) Depression (Chronic Unknown) Fecal incontinence (Resolved 10/2016) Foot pain (Chronic Unknown) Fractures (Resolved Unknown) HTN (hypertension) (Chronic) Low back pain (Chronic Unknown) Peripheral neuropathy (Chronic Unknown) Past Surgical History (Last Reviewed 10/26/18 @ 19:40 by Dejah Kang PA-C) H/O bladder repair surgery (Resolved Unknown) Status post hysterectomy Visit Care Team Role Provider Type Tanesha Anderson MD Attending Provider Physician Primary Care Provider Referring Provider Specialty: Family Practice Address: [address] [place] [address], [facility] Email: [email or web address] Physical Therapy Initial Evaluation PT-OP-A Visit Information Start: 02/21/20 17:58 Freq: Status: Active Protocol: Document 02/23/20 09:50 LRN (Rec: 02/23/20 17:38 LRN [id number]) Out-Patient Physical Therapy Visit Information Visit Information Visit Type Initial Evaluation Visit Start Time 09:52 Visit Stop Time 10:51 Total Visit Minutes 59 Visit Number 1 Evaluation Information Evaluation Date 02/23/20 Precautions Precautions Pt reports ice increases knee pain. osteopenia, neuropathy of feet, hx of orthostatic hypotension sx, intermittent dizziness with quick head turn, history of old ankle fracture on the right. PT-OP-B Current Condition Start: 02/21/20 17:58 Freq: Status: Active Protocol: Document 02/23/20 09:50 LRN (Rec: 02/23/20 17:38 LRN [id number]) Current Condition History of Current Condition Onset Date 1 month ago Current Complaints L knee pain w/movement/ standing in medial, posterior and anterior knee jt History of Current Condition Torn meniscus in L knee of insidious onset. After shopping went to get up out of car and the L knee buckled. She had an MRI and was found to have tear. She reports 2 weeks after having MRI she was going down stairs and something popped in the knee resulting in immediate pain. She saw Dr. Do, Otroxanneist @ [facility] and was then referred to physical therapy for 6 weeks of therapy. She states she has pain in the L knee in the morning and is not able to tolerate lying with her L leg straight. Riding in a car makes it worse but sitting is pain free. Prior Treatments and Tests Taking 2 IBP in morning due to pain. Future Testing and Treatments Planned 5 weeks ago pt referred to PT and is having a follow up visit in 1 weeks. Treatment Goals Patient/Caregiver Goals Pt is not sure why she was referred to therapy. Her goal is to not have pain but really I don't know. States her L knee is still swollen. Prior Functional Status Baseline Function- ADL's Independent Baseline Function- Mobility Independent Baseline Function- Recreation/Hobbies Walked 1 mile every day. Current Functional Impairments (Reported) Functional Limitations- ADL's Can't get down on knees to work in the yard. Does only light housekeeping. Not able to squat. Functional Limitations- Mobility/Gait baby's L knee when walking, Bends from the waist to orange picker objects off the floor. Functional Limitations- Recreation/ Not able to walk for exercise. Hobbies Not able to garden Functional Limitations- Other Not able to squat Personal Factors Other Personal Factors That May Effect neuropathy of feet, Therapy/Recovery hx of orthostatic hypotension sx, intermittent dizziness with quick head turn, history of old ankle fracture on the right. History of L ear drum surgery 30 years ago osteopenia. PT-OP-C Subjective Start: 02/21/20 17:58 Freq: Status: Active Protocol: Document 02/23/20 09:50 LRN (Rec: 02/24/20 18:02 LRN [id number]) Patient Questionnaires Lower Extremity Functional Scale LEFS Score 46 LEFS Impairment 40 to 59% Impaired (Score 32- 47) OP-PT Pain Assessment Pain Assessment Grid Paper Pain Assessment Grid Completed Yes Location L knee Pain Location Details Medial jt line, posterior and sometimes anterior knee Intensity 4 Scale Used Numeric (0 - 10) Description Aching Frequency Frequent Pain Aggravating Factors Position,Activity,Standing, Walking,Stair Climbing Other Pain Aggravating Factors Supine lying & Car riding, squatting Pain Alleviating Factors Medication,Position,Sitting PT-OP-G Mobility & Gait Start: 02/21/20 17:58 Freq: Status: Active Protocol: Document 02/23/20 09:50 LRN (Rec: 02/24/20 18:02 LRN [id number]) OP Mobility Evaluation Bed Mobility Rolling Independent without difficulty Supine to and from Sit Independent without difficulty Transfers Sit to Stand Independent without difficulty OP Gait Assessment Comments Gait Comments Pt ambulates with her L leg in external rotation. Normal step lengths and weight bearing tolerance. PT-OP-H Neuro Start: 02/21/20 17:58 Freq: Status: Active Protocol: Document 02/23/20 09:50 LRN (Rec: 02/24/20 18:02 LRN [id number]) Deep Tendon Reflex & Clonus Assessment Deep Tendon Reflex Bilateral Achilles Deep Tendon Reflex 0 Absent Bilateral Patellar Deep Tendon Reflex 0 Absent PT-OP-J Posture/Palpation/Skin Start: 02/21/20 17:58 Freq: Status: Active Protocol: Document 02/23/20 09:50 LRN (Rec: 02/24/20 18:02 LRN [id number]) Posture Evaluation Position Standing Evaluation View posterior & anterior Head/C-Spine Posture Neutral Position Weight Distribution Decreased Wt.Bear on (L) Hip Posture (L) Externally Rotated,(R) Externally Rotated Comments Posture Comments Mild varus of lower legs, atrophy of L gastroc/soleus complex. Palpation Assessment Location L knee Palpation Location Medial joint line and Semi- membranosus/tendenosus attach at tibia Palpation Findings Tenderness Palpation Details General swelling in the anterior and posterior aspect of the knee. PT-OP-K Range of Motion Start: 02/21/20 17:58 Freq: Status: Active Protocol: Document 02/23/20 09:50 LRN (Rec: 02/24/20 18:02 LRN [id number]) Hip Goniometric Range of Motion Hip Right Passive Hip ROM WFL Yes Testing Position Supine Flexion w/Knee Flexed 110 Straight Leg Raise 90 Extension 15 Abduction 30 Internal Rotation 35 External Rotation 40 Left Passive Hip ROM WFL No Testing Position Supine Flexion w/Knee Flexed 110 Straight Leg Raise 65 Extension 8 Abduction 25 Internal Rotation 30 External Rotation 50 Knee Goniometric Range of Motion Knee Right Knee ROM WFL Yes Flexion Active (degrees) 120 Extension Active (degrees) 9 Extension Passive (degrees) 0 Left Knee ROM WFL No Flexion Active (degrees) 125 Extension Active (degrees) 9 Extension Passive (degrees) 3 PT-OP-M Strength Start: 02/21/20 17:58 Freq: Status: Active Protocol: Document 02/23/20 09:50 LRN (Rec: 02/24/20 18:02 LRN [id number]) Hip Strength Hip Manual Muscle Testing Right Flexion (L2) 4+ Good+ Comments Strength is normal except as indicated above Left Flexion (L2) 4+ Good+ Extension (S1) 4 Good Comments Strength is normal except as indicated above Knee Strength Knee Manual Muscle Testing Right Comments Normal strength: 5/5 in all areas. Left Flexion (S2) 3+ Fair+ Extension (L3) 5 Normal PT-OP-Q Treatments Start: 02/21/20 17:58 Freq: Status: Active Protocol: Document 02/23/20 09:50 LRN (Rec: 02/24/20 18:02 LRN [id number]) Therapeutic Exercises Supine Exercises Heel Slide Supine Exercise Name Heel slide Side left Reps/Minutes 4' Comments Determined ROM tolerance and ROM taken QS Supine Exercise Name QS with folded towel under L knee Side left Reps/Minutes 4' Comments Determined proper positioning (w/towel roll support) to prevent pain w/ex. Self-Care/Home Management Treatment Education Patient Education Home Exercise Program Activities Self-Care/Home Management Activities Issued handouts & reviewed HEP : QS, Heel slides & SLR. PT-OP-T Assessment and Plan Start: 02/21/20 17:58 Freq: Status: Active Protocol: Document 02/23/20 09:50 LRN (Rec: 02/23/20 17:38 [facility] [id number]) Physical Therapy Assessment Rehab Potential Rehabilitation Potential Good Evaluation Complexity Number of Personal Factors/Comorbidities 1-2 Number of Body Systems Impaired 4 or More Clinical Presentation at Evaluation Evolving Impairments Impairments Activity Tolerance,Edema,Gait, Pain,ROM,Soft Tissue Mobility, Strength Goals Four Impairment Decreased ability to walk for health (used to walk 1 mile every other day) Short Term Goal (STG) Pt will be able to walk on TM 10' without L knee pain. STG Duration 03/22/20 Senior Care Goal (LTG) Pt will be able to resume walking 1 mile every other day as weather permits. LTG Duration 05/23/20 Three Impairment Decreased L knee strength, Flex 4/5, Ext 5/5 (R knee is generally 5/5) Short Term Goal (STG) Increase L knee strength to 5/ 5. STG Duration 04/05/20 Senior Care Goal (LTG) Pt will be able to go up/down steps and do light housekeeping activities without difficulty. LTG Duration 05/23/20 Two Impairment Decreased L knee AROM Short Term Goal (STG) Improve L knee AROM symmetrical to R knee AROM of 125 deg's flex, 0 deg's extension, with pt able to lie with L leg straight without pain. STG Duration 03/22/20 Plumbing Drafter Goal (LTG) Pt will be able to get in/out of a car without difficulty and be able to get down on her knees for yardwork. LTG Duration 05/23/20 One Impairment Lacks appropriate self care HEP. Senior Care Goal (LTG) Pt will be independent with a self care HEP. LTG Duration 05/23/20 Assessment Summary Assessment Pt presents with limited L knee/hip mobility and strength /endurance due diagnosed L knee meniscus tear, location unknown (pain is notable medially). She is limited in her ability to walk for exercise due to L knee pain. Her gait mechanics to her are normal, but she tends to ambulate with her LLE held in ER, probably due to her medial and posterior knee pain. The pt is limited in positioning tolerance of full L knee extension due to pain, mainly medial and posterior and sometimes anteriorly above and below the patella. The pt will benefit from skilled physical therapy to improve her L knee strength and mobility and improve her endurance and exercise tolerance. Physical Therapy Plan Frequency and Duration Frequency of Treatment 2x/Week Plan of Care Start Date 02/23/20 Plan of Care End Date 05/23/20 Therapeutic Interventions Therapeutic Interventions Balance Training,Gait Training ,Home Exercise Program,Joint Mobilizations,Manual Therapy, Neuromuscular Re-education, Patient/Caregiver Education, Self-Care/Home Management,Soft Tissue Mobilization,Taping, Therapeutic Exercises Modalities Cold Pack/Ice Massage,Electric Stimulation,Hot Packs, Ultrasound Next Visit Focus/Plan Next Note Type Treatment Note Next Visit Plan L hip/knee strengthening (CKC for knee), L knee training for MWM to eliminate pain with AROM & assess for K-tape use, Aerobic conditioning starting a few minutes, TrP rx along joint line and hamstring, JMT of tibiofibular joint. Try axial distraction w/ROM exercises. End with modalities (US, CP) as needed.
--- NOTE | 2020-02-23 18:20 | PT.OPPOC ---
Physical, Occupational & Speech Therapy At [facility] Current Diagnoses Muscle weakness (generalized) (02/23/20) Other reduced mobility (02/23/20) Visit Care Team Role Provider Type Tanesha Anderson MD Attending Provider Physician Primary Care Provider Referring Provider Specialty: [facility] Address: [address] [place] [address], [id number] Email: Plan Of Care PT-OP-T Assessment and Plan Start: 02/21/20 17:58 Freq: Status: Active Protocol: Document 02/23/20 09:50 LRN (Rec: 02/23/20 17:38 LRN [id number]) Physical Therapy Assessment Rehab Potential Rehabilitation Potential Good Evaluation Complexity Number of Personal Factors/Comorbidities 1-2 Number of Body Systems Impaired 4 or More Clinical Presentation at Evaluation Evolving Impairments Impairments Activity Tolerance,Edema,Gait, Pain,ROM,Soft Tissue Mobility, Strength Goals Four Impairment Decreased ability to walk for health (used to walk 1 mile every other day) Short Term Goal (STG) Pt will be able to walk on TM 10' without L knee pain. STG Duration 03/22/20 Senior Restaurant Manager Goal (LTG) Pt will be able to resume walking 1 mile every other day as weather permits. LTG Duration 05/23/20 Three Impairment Decreased L knee strength, Flex 4/5, Ext 5/5 (R knee is generally 5/5) Short Term Goal (STG) Increase L knee strength to 5/ 5. STG Duration 04/05/20 Senior Restaurant Manager Goal (LTG) Pt will be able to go up/down steps and do light housekeeping activities without difficulty. LTG Duration 05/23/20 Two Impairment Decreased L knee AROM Short Term Goal (STG) Improve L knee AROM symmetrical to R knee AROM of 125 deg's flex, 0 deg's extension, with pt able to lie with L leg straight without pain. STG Duration 03/22/20 Senior Restaurant Manager Goal (LTG) Pt will be able to get in/out of a car without difficulty and be able to get down on her knees for yardwork. LTG Duration 05/23/20 One Impairment Lacks appropriate self care HEP. Senior Restaurant Manager Goal (LTG) Pt will be independent with a self care HEP. LTG Duration 05/23/20 Assessment Summary Assessment Pt presents with limited L knee/hip mobility and strength /endurance due diagnosed L knee meniscus tear, location unknown (pain is notable medially). She is limited in her ability to walk for exercise due to L knee pain. Her gait mechanics to her are normal, but she tends to ambulate with her LLE held in ER, probably due to her medial and posterior knee pain. The pt is limited in positioning tolerance of full L knee extension due to pain, mainly medial and posterior and sometimes anteriorly above and below the patella. The pt will benefit from skilled physical therapy to improve her L knee strength and mobility and improve her endurance and exercise tolerance. Physical Therapy Plan Frequency and Duration Frequency of Treatment 2x/Week Plan of Care Start Date 02/23/20 Plan of Care End Date 05/23/20 Therapeutic Interventions Therapeutic Interventions Balance Training,Gait Training ,Home Exercise Program,Joint Mobilizations,Manual Therapy, Neuromuscular Re-education, Patient/Caregiver Education, Self-Care/Home Management,Soft Tissue Mobilization,Taping, Therapeutic Exercises Modalities Cold Pack/Ice Massage,Electric Stimulation,Hot Packs, Ultrasound Next Visit Focus/Plan Next Note Type Treatment Note Next Visit Plan L hip/knee strengthening (CKC for knee), L knee training for MWM to eliminate pain with AROM & assess for K-tape use, Aerobic conditioning starting a few minutes, TrP rx along joint line and hamstring, JMT of tibiofibular joint. Try axial distraction w/ROM exercises. End with modalities (US, CP) as needed. Plan of Care Dates Plan of Care Start Date 02/23/20 Plan of Care End Date 05/23/20 Electronically Signed by: Cassandra Byers, PT 02/24/20 1595 Please Sign and Return: I have reviewed this Plan of Care and certify that the skilled therapy services above are required to meet the patient?s needs. Physician Signature Date Printed Name and Credentials Clinical Instructor Signature Printed Name and Credentials
--- NOTE | 2020-03-02 18:29 | PT.OPDS ---
Current Diagnoses Muscle weakness (generalized) (02/23/20) Other reduced mobility (02/23/20) Visit Care Team Role Provider Type Tanesha Anderson MD Attending Provider Physician Primary Care Provider Referring Provider Specialty: Family Practice Address: [address] [place] [address], [facility] [place], [facility] Email: [email or web address] Visit Number Visit Number 1 Discharge Summary PT-OP-B Current Condition Start: 02/21/20 17:58 Freq: Status: Active Protocol: Document 02/23/20 09:50 LRN (Rec: 02/23/20 17:38 LRN [id number]) Current Condition History of Current Condition Onset Date 1 month ago Current Complaints L knee pain w/movement/ standing in medial, posterior and anterior knee jt History of Current Condition Torn meniscus in L knee of insidious onset. After shopping went to get up out of car and the L knee buckled. She had an MRI and was found to have tear. She reports 2 weeks after having MRI she was going down stairs and something popped in the knee resulting in immediate pain. She saw Dr. Do, Nika @ [facility] and was then referred to physical therapy for 6 weeks of therapy. She states she has pain in the L knee in the morning and is not able to tolerate lying with her L leg straight. Riding in a car makes it worse but sitting is pain free. Prior Treatments and Tests Taking 2 IBP in morning due to pain. Future Testing and Treatments Planned 5 weeks ago pt referred to PT and is having a follow up visit in 1 weeks. Treatment Goals Patient/Caregiver Goals Pt is not sure why she was referred to therapy. Her goal is to not have pain but really I don't know. States her L knee is still swollen. Prior Functional Status Baseline Function- ADL's Independent Baseline Function- Mobility Independent Baseline Function- Recreation/Hobbies Walked 1 mile every day. Current Functional Impairments (Reported) Functional Limitations- ADL's Can't get down on knees to work in the yard. Does only light housekeeping. Not able to squat. Functional Limitations- Mobility/Gait baby's L knee when walking, Bends from the waist to worm picker objects off the floor. Functional Limitations- Recreation/ Not able to walk for exercise. Hobbies Not able to garden Functional Limitations- Other Not able to squat Personal Factors Other Personal Factors That May Effect neuropathy of feet, Therapy/Recovery hx of orthostatic hypotension sx, intermittent dizziness with quick head turn, history of old ankle fracture on the right. History of L ear drum surgery 30 years ago osteopenia. PT-OP-C Subjective Start: 02/21/20 17:58 Freq: Status: Active Protocol: Document 02/23/20 09:50 LRN (Rec: 02/24/20 18:02 LRN [id number]) Patient Questionnaires Lower Extremity Functional Scale LEFS Score 46 LEFS Impairment 40 to 59% Impaired (Score 32- 47) OP-PT Pain Assessment Pain Assessment Grid Paper Pain Assessment Grid Completed Yes Location L knee Pain Location Details Medial jt line, posterior and sometimes anterior knee Intensity 4 Scale Used Numeric (0 - 10) Description Aching Frequency Frequent Pain Aggravating Factors Position,Activity,Standing, Walking,Stair Climbing Other Pain Aggravating Factors Supine lying & Car riding, squatting Pain Alleviating Factors Medication,Position,Sitting PT-OP-G Mobility & Gait Start: 02/21/20 17:58 Freq: Status: Active Protocol: Document 02/23/20 09:50 LRN (Rec: 02/24/20 18:02 LRN [id number]) OP Mobility Evaluation Bed Mobility Rolling Independent without difficulty Supine to and from Sit Independent without difficulty Transfers Sit to Stand Independent without difficulty OP Gait Assessment Comments Gait Comments Pt ambulates with her L leg in external rotation. Normal step lengths and weight bearing tolerance. PT-OP-H Neuro Start: 02/21/20 17:58 Freq: Status: Active Protocol: Document 02/23/20 09:50 LRN (Rec: 02/24/20 18:02 LRN [id number]) Deep Tendon Reflex & Clonus Assessment Deep Tendon Reflex Bilateral Achilles Deep Tendon Reflex 0 Absent Bilateral Patellar Deep Tendon Reflex 0 Absent PT-OP-J Posture/Palpation/Skin Start: 02/21/20 17:58 Freq: Status: Active Protocol: Document 02/23/20 09:50 LRN (Rec: 02/24/20 18:02 LRN [id number]) Posture Evaluation Position Standing Evaluation View posterior & anterior Head/C-Spine Posture Neutral Position Weight Distribution Decreased Wt.Bear on (L) Hip Posture (L) Externally Rotated,(R) Externally Rotated Comments Posture Comments Mild varus of lower legs, atrophy of L gastroc/soleus complex. Palpation Assessment Location L knee Palpation Location Medial joint line and Semi- membranosus/tendenosus attach at tibia Palpation Findings Tenderness Palpation Details General swelling in the anterior and posterior aspect of the knee. PT-OP-K Range of Motion Start: 02/21/20 17:58 Freq: Status: Active Protocol: Document 02/23/20 09:50 LRN (Rec: 02/24/20 18:02 LRN [id number]) Hip Goniometric Range of Motion Hip Right Passive Hip ROM WFL Yes Testing Position Supine Flexion w/Knee Flexed 110 Straight Leg Raise 90 Extension 15 Abduction 30 Internal Rotation 35 External Rotation 40 Left Passive Hip ROM WFL No Testing Position Supine Flexion w/Knee Flexed 110 Straight Leg Raise 65 Extension 8 Abduction 25 Internal Rotation 30 External Rotation 50 Knee Goniometric Range of Motion Knee Right Knee ROM WFL Yes Flexion Active (degrees) 120 Extension Active (degrees) 9 Extension Passive (degrees) 0 Left Knee ROM WFL No Flexion Active (degrees) 125 Extension Active (degrees) 9 Extension Passive (degrees) 3 PT-OP-M Strength Start: 02/21/20 17:58 Freq: Status: Active Protocol: Document 02/23/20 09:50 LRN (Rec: 02/24/20 18:02 LRN [id number]) Hip Strength Hip Manual Muscle Testing Right Flexion (L2) 4+ Good+ Comments Strength is normal except as indicated above Left Flexion (L2) 4+ Good+ Extension (S1) 4 Good Comments Strength is normal except as indicated above Knee Strength Knee Manual Muscle Testing Right Comments Normal strength: 5/5 in all areas. Left Flexion (S2) 3+ Fair+ Extension (L3) 5 Normal PT-OP-T Assessment and Plan Start: 02/21/20 17:58 Freq: Status: Active Protocol: Document 03/02/20 18:24 LRN (Rec: 03/02/20 18:29 LRN [id number]) Physical Therapy Assessment Goals Four Impairment Decreased ability to walk for health (used to walk 1 mile every other day) Short Term Goal (STG) Pt will be able to walk on TM 10' without L knee pain. STG Duration 03/22/20 NOT MET, early discharge Half-Way Goal (LTG) Pt will be able to resume walking 1 mile every other day as weather permits. LTG Duration 05/23/20 NOT MET, early discharge Three Impairment Decreased L knee strength, Flex 4/5, Ext 5/5 (R knee is generally 5/5) Short Term Goal (STG) Increase L knee strength to 5/ 5. STG Duration 04/05/20 Newscast Producer Goal (LTG) Pt will be able to go up/down steps and do light housekeeping activities without difficulty. LTG Duration 05/23/20 NOT MET, early discharge Two Impairment Decreased L knee AROM Short Term Goal (STG) Improve L knee AROM symmetrical to R knee AROM of 125 deg's flex, 0 deg's extension, with pt able to lie with L leg straight without pain. STG Duration 03/22/20 NOT MET, early discharge Half-Way Goal (LTG) Pt will be able to get in/out of a car without difficulty and be able to get down on her knees for yardwork. LTG Duration 05/23/20 NOT MET, early discharge One Impairment Lacks appropriate self care HEP. Half-Way Goal (LTG) Pt will be independent with a self care HEP. LTG Duration 05/23/20 (Initiated) Assessment Summary Assessment Message received pt cancelled all appts due to being told by physician that she doesn't need PT anymore if doing home exercises and requests discharge. Physical Therapy Plan Discharge Physical Therapy Discharge Reasons Patient Request Discharge Comments Pt being discharged from Physical therapy without completion of planned rehabilitation plan of care. Thank you for your referral.
== END 2020-04-05 08:55 ==
LOC: PHYS 09:20
PROVIDERS: PCP Student in an Organized Health Care Education/Training Program; Referring Provider Student in an Organized Health Care Education/Training Program; Visit Provider Student in an Organized Health Care Education/Training Program
DX: M62.81 Muscle weakness (generalized) (principal); Z74.09 Other reduced mobility
CPT/HCPCS: 97110; 97162

== ENCOUNTER → 2021-01-01 14:47 | Outpatient (CLI) | payer OTHER, SELFPAY ==
--- NOTE | 2021-01-01 14:49 | DI.ECHO.S_ITS ---
[place] +---------+ Hospital +---------+ : : [address] : : : : [id number] : : : : Phone: [phone]+ Echocardiogram Report + + :Name: REMINGTON FARRIS Study Date: 01/01/2021 Height: 62 in : :[facility] ReadingLocation: Weight: 186 lb : : Gender: Female BSA: 1.9 m2 : :: 1935 Age: 85 yrs BP: 141/86 mmHg: :Reason For Study: AORTIC STENOSIS : :Ordering Physician: JOSE, : :CAMILO Performed By: Britney Ring : :Referring: CAMILO PERDOMO : + + Interpretation Summary 1) Normal left ventricular thickness, size, wall motion, and systolic function (EF 60-65%). 2) Grossly, normal right ventricular size with low normal function. 3) There is moderate aortic stenosis (valve area 1.1cm2, mean gradient 21.4mmHg, severity ratio 0.33). 4) There is mild to moderate tricuspid regurgitation. 5) Compared to the Echo done 12/08/2019, moderate stenosis has progressed slightly but remains in the moderate range. Procedure: A two-dimensional transthoracic echocardiogram with color flow and Doppler was performed. The study quality was technically adequate. Comparison is made with the echocardiogram of 12/08/2019. The patient was in sinus rhythm with heart rates between 62-78 bpm during the exam. Left Ventricle: The left ventricle is normal in size and wall thickness. The ejection fraction is estimated to be 60-65%. Left ventricular systolic function appears normal without focal wall motion abnormalities. Right Ventricle: The right ventricle is normal size. Right ventricular systolic function is at the lower limits of normal. Atria: The left atrial size is normal. Right atrial size is normal. There is no Doppler evidence for an interatrial shunt. Mitral Valve: There is mild mitral annular calcification. There is mild mitral regurgitation. Aortic Valve: The aortic valve is trileaflet. The aortic valve is moderately calcified. There is moderate aortic stenosis. The peak aortic velocity is 2.8 m/sec. The aortic valve mean gradient is 21 mmHg. The calculated aortic valve area is 1.1 cm2. There is trace aortic regurgitation. Tricuspid Valve: The tricuspid valve is normal in structure and function. There is mild to moderate tricuspid regurgitation. The right ventricular systolic pressure is estimated to be at least 22 mmHg based on an estimated right atrial pressure of 3 mm Hg. Pulmonic Valve: The pulmonic valve leaflets are thin and pliable; valve motion is normal. There is no pulmonic valvular regurgitation. Great Vessels: The aortic root is normal size. The dimensions of the ascending aorta are normal. The IVC is of normal diameter and collapses greater than 50% with a sniff. This suggests a low right atrial pressure of 3 mm Hg. Pericardium/ Pleura There is no pericardial effusion. There is no pleural effusion. MMode/2D Measurements & Calculations LVIDd: 4.0 cm LVOT diam: 2.1 cm LVIDs: 2.5 cm Ao root diam: 2.9 cm FS: 37.5 % asc Aorta Diam: 3.6 cm IVSd: 1.0 cm Ao Arch Diam (Prox Trans): 2.3 cm LVPWd: 1.0 cm LV bower. diameter/BSA (cm/m^2): 2.2 LV sys. diameter/BSA (cm/m^2): 1.3 LA A2 area: 22.3 cm2 RA long axis: 5.7 cm LA A4 area: 16.2 cm2 RA area: 16.4 cm2 LA length (vol): 5.3 cm RA vol: 40.4 ml LA vol: 57.5 ml RA : 21.8 ml/m2 LA vol index: 31.0 ml/m2 IVC diam: 1.4 cm RVD1 (basal): 2.9 cm TAPSE: 1.6 cm Doppler Measurements & Calculations Ao V2 max: 281.3 cm/sec LVOT Max Rogerio: 88.2 cm/sec Ao V2 mean: 223.8 cm/sec LV V1 max P.1 mmHg Ao max P.7 mmHg LV V1 VTI: 19.8 cm Ao mean P.4 mmHg JOSEPH(I,D): 1.1 cm2 Ao V2 VTI: 60.6 cm JOSEPH(V,D): 1.1 cm2 sev ratio: 0.33 JOSEPH indexed to BSA (cm^2/m^2): 0.60 MV E max rogerio: 45.5 cm/sec TR max rogerio: 220.0 cm/sec MV A max rogerio: 70.2 cm/sec TR max P.4 mmHg MV E/A: 0.65 PA V2 max: 116.0 cm/sec Med Peak E' Rogerio: 5.6 cm/sec PA V2 mean: 83.3 cm/sec E/E' med: 8.1 PA mean P.1 mmHg Lat Peak E' Rogerio: 5.5 cm/sec PA pr(Accel): 32.8 mmHg E/E' lat: 8.3 E/e' average: 8.2 MV dec time: 0.19 sec SV(LVOT): 67.9 ml Reading Physician:09:57 AM
== END ==
PROVIDERS: PCP Student in an Organized Health Care Education/Training Program; Referring Provider Internal Medicine Cardiovascular Disease; Visit Provider Internal Medicine Cardiovascular Disease
DX: I08.3 Combined rheumatic disorders of mitral, aortic and tricuspid valves (principal)
CPT/HCPCS: 93306

== ENCOUNTER → 2021-06-26 12:33 | Outpatient (CLI) | payer OTHER, SELFPAY ==
--- NOTE | 2021-06-26 12:35 | DI.MRI.S_ITS ---
PROCEDURE: MR LUMBAR SPINE WO CON INDICATIONS: knee pain/low back pain TECHNIQUE: Noncontrast sagittal T1 spin echo and T2 fast echo, sagittal STIR, axial T1 and T2 fast spin echo through the lumbar spine. In cases with scoliosis, additional coronal T2 fast spin echo may be performed. COMPARISON: [facility] [place], CR, XR LUMBAR SPINE WITH OLBIQUES PLUS FLEXION EXTENSION, 05/07/2021, 15:46. FINDINGS: Image quality: Excellent. Alignment and Curvature: There is trace L1-L2 and L2-L3 retrolisthesis.. Bone Marrow: Modic type 1 reactive endplate changes noted adjacent to the T12-L1, L1-L2, L2-L3, L3-L4, L4-L5 and L5-S1 discs. Small Schmorl's nodes noted in the superior endplate of the L3 vertebral body, inferior endplate of the L4 vertebral body, the superior endplate of the L5 vertebral body in the inferior endplate of the L5 vertebral body. No acute vertebral body compression fractures. Spinal Cord: Conus medullaris terminates at the L1 level. Visualized cord demonstrates normal signal and size. Paraspinous Soft Tissues: No paravertebral masses. T12-L1: Loss of disc signal and height. Mild, diffuse disc bulge. Mild narrowing of the central canal. No neural foraminal narrowing. No neural compression L1-L2: Loss of disc signal. Mild to moderate diffuse disc bulge. Mild narrowing of the central canal. Mild left neural foraminal narrowing. No neural compression. L2-L3: Loss of disc signal. Moderate, diffuse disc bulge. Mild bilateral facet hypertrophy. Mild to moderate narrowing of the central canal. [id number] right and moderate left neural foraminal narrowing. No neural compression. L3-L4: Loss of disc signal. Moderate, diffuse disc bulge. Mild bilateral facet hypertrophy. Mild to moderate narrowing of the central canal. Mild to moderate bilateral neural foraminal narrowing. No neural compression. L4-L5: Loss of disc signal and slight loss of disc height. Mild, diffuse disc bulge. Mild bilateral facet hypertrophy. Mild to moderate narrowing of the central canal. Moderate right and mild left neural foraminal narrowing. No neural compression. L5-S1: Loss of disc signal. Mild, diffuse disc bulge. Small central disc protrusion. Mild bilateral facet hypertrophy. No central stenosis. Severe right and [id number] left neural foraminal narrowing with compression of the exiting right L5 nerve root. IMPRESSION: 1. Multilevel degenerative disc disease. 2. Multilevel facet arthropathy. 3. No severe central canal narrowing. 4. Severe right L5-S1 neural foraminal narrowing with compression of the exiting right L5 nerve root. Dictated by: Valarie Leonard MD, PhD on 06/26/2021 at 14:42 Approved by: Valarie Loenard MD, PhD on 06/26/2021 at 14:47
--- NOTE | 2021-06-26 12:35 | DI.MRI.S_ITS ---
PROCEDURE: MR KNEE LT WO CON INDICATIONS: knee pain/low back pain TECHNIQUE: Noncontrast sagittal PD fast spin echo and T2 fast spin echo with fat saturation, sagittal 3-D FLASH with fat saturation; coronal T1 spin echo and PD fast spin echo with fat saturation, and axial PD fast spin echo with fat saturation through the knee. COMPARISON: [facility] [place], CR, XR KNEE 4+ VIEWS LEFT, 05/30/2021, 10:05. FINDINGS: Image quality: Excellent. Menisci: Medial extrusion of the medial meniscus is present. Linear oblique, transverse, and amorphous high signal intensity within the anterior horn, body, and posterior horn medial meniscus is present demonstrating inferior articular surface extension, indicating complex tearing. Radial tearing of the posterior horn medial meniscus at the meniscal root ligament insertion site. Degenerative fraying of the free edge of the lateral meniscal body is present. Cruciate ligaments: The anterior and posterior cruciate ligaments appear intact. Medial structures: The medial collateral ligament appears intact. Visualized portions of the pes anserinus tendons appear normal. No abnormal bursal fluid. Lateral structures: The lateral collateral ligament, long and short heads of the biceps femoris tendon appear intact. The popliteus tendon appears normal. Iliotibial band appears normal. Anterior structures: The quadriceps and patellar tendons appear intact. Patellar alignment is normal. No femoral trochlear dysplasia or ventral trochlear prominence. No edema in the infrapatellar fat pad. Bones and cartilage: No bone marrow contusions or fractures. Mild tricompartmental periarticular osteophyte formation. Severe articular cartilage loss diffusely overlies the weight-bearing aspects of the medial femoral condyle and medial tibial plateau. Mild articular cartilage loss overlies the weight-bearing aspects of the lateral femoral condyle and lateral tibial plateau. Mild articular cartilage loss overlies the lateral patellar facet inferiorly. Joint space: There is a small knee joint effusion, a small ganglion cyst along the popliteus, and a small Beach's cyst. Normal appearing synovial plicae are incidentally noted. IMPRESSION: 1. Tricompartmental osteoarthritis with associated articular cartilage loss. 2. Complex tearing of the medial meniscus. Degenerative fraying of the free edge of the lateral meniscus. 3. Knee joint effusion, Beach's cyst, and small ganglion cyst along the popliteus. Dictated by: Tahir Ellison M.D. on 06/26/2021 at 14:03 Approved by: Tahir Ellison M.D. on 06/26/2021 at 14:06
== END ==
PROVIDERS: PCP Student in an Organized Health Care Education/Training Program; Referring Provider Physical Medicine & Rehabilitation Pain Medicine; Visit Provider Physical Medicine & Rehabilitation Pain Medicine
DX: S83.232A Complex tear of medial meniscus, current injury, left knee, initial encounter (principal); M17.12 Unilateral primary osteoarthritis, left knee; M25.562 Pain in left knee; M25.462 Effusion, left knee; M71.22 Synovial cyst of popliteal space [Baker], left knee; M67.462 Ganglion, left knee; M51.36 Other intervertebral disc degeneration, lumbar region; M51.37 Other intervertebral disc degeneration, lumbosacral region; M47.816 Spondylosis without myelopathy or radiculopathy, lumbar region; M47.817 Spondylosis without myelopathy or radiculopathy, lumbosacral region; M48.07 Spinal stenosis, lumbosacral region; M54.50 Low back pain, unspecified
CPT/HCPCS: 72148; 73721

== ENCOUNTER → 2021-09-10 11:13 | Outpatient (CLI) | payer OTHER, SELFPAY ==
--- NOTE | 2021-09-10 | DI.RAD.S_ITS ---
PROCEDURE: XR CHEST 2V INDICATIONS: Wheezing TECHNIQUE: 2 views of the chest were acquired. COMPARISON: [facility], CR, XR CHEST 2V, 10/21/2019, 16:21. FINDINGS: Surgical changes and devices: None. Lungs and pleura: No acute consolidation. There is mild interstitial prominence in the lung bases which appear similar to the prior study. No pleural effusions or pneumothorax. Mediastinum: Heart size is enlarged. Bones and chest wall: No suspicious bony abnormalities. Soft tissues appear unremarkable. IMPRESSION: 1. No definite acute cardiopulmonary disease. 2. Mild interstitial prominence in the lung bases suggestive of chronic interstitial changes. Dictated by: Gen Parrish M.D. on 09/10/2021 at 16:08 Approved by: Gen Parrish M.D. on 09/10/2021 at 16:10
== END ==
PROVIDERS: PCP Student in an Organized Health Care Education/Training Program; Referring Provider Student in an Organized Health Care Education/Training Program; Visit Provider Student in an Organized Health Care Education/Training Program
DX: R06.2 Wheezing (principal)
CPT/HCPCS: 71046

== ENCOUNTER → 2021-09-16 15:22 | Outpatient (CLI) | payer OTHER, SELFPAY ==
--- NOTE | 2021-09-16 | DI.ECHO.S_ITS ---
[place] [facility] +---------+ : : [address] : : : : [address] : : : : [id number] : : : : Phone: [phone]+ Echocardiogram Report + + :Name: REMINGTON FARRIS Study Date: 09/16/2021 Height: 62 in : :[facility] ReadingLocation: Weight: 190 lb : : Gender: Female BSA: 1.9 m2 : :: 1935 Age: 85 yrs BP: 153/91 mmHg: :Reason For Study: DYSPNEA : :Ordering Physician: SHIRA, : :GIDEON Performed By: Britney Ring : :Referring: GIDEON SILVA : + + Interpretation Summary 1) Normal left ventricular size, wall motion, and systolic function (EF 60- 65%). 2) Grossly, normal right ventricular size with low normal function. 3) There is moderate aortic stenosis (valve area 1.1cm2, mean gradient 16.7mmHg, severity ratio 0.31). 4) There is mild to moderate tricuspid regurgitation. 5) Compared to the Echo done 01/01/2021, no significant change. Procedure: A two-dimensional transthoracic echocardiogram with color flow and Doppler was performed. The study quality was technically adequate. Comparison is made with the echocardiogram of 01/01/2021. The heart rate ranged between 52-60 bpm during the study. Left Ventricle: The left ventricle is normal in size. Left ventricular wall thickness is borderline increased. The ejection fraction is estimated to be 60-65%. Left ventricular systolic function appears normal without focal wall motion abnormalities. Diastolic parameters suggest a relaxation abnormality of the left ventricle, consistent with probable normal filling pressures. Right Ventricle: The right ventricle is grossly normal size. Right ventricular systolic function is at the lower limits of normal. Atria: The left atrium is moderately dilated. The right atrium is mildly dilated. There is no Doppler evidence for an interatrial shunt. Mitral Valve: There is mild to moderate mitral annular calcification. There is mild mitral regurgitation. Aortic Valve: The aortic valve is moderately calcified. The peak aortic velocity is 2.6 m/sec. The aortic valve mean gradient is 16 mmHg. The calculated aortic valve area is 1.1 cm2. There is mild aortic regurgitation. Tricuspid Valve: The tricuspid valve leaflets are thin and pliable. The right ventricular systolic pressure is estimated to be at least 38 mmHg based on an estimated right atrial pressure of 15 mm Hg. There is mild to moderate tricuspid regurgitation. Pulmonic Valve: The pulmonic valve leaflets are thin and pliable; valve motion is normal. There is a trace or physiologic amount of pulmonic regurgitation. Great Vessels: The aortic root is normal size. The ascending aorta is normal in size. The IVC is dilated (diameter is greater than 2.1 cm) and it collapses less than 50% with a sniff. This suggests a high right atrial pressure of 15 mm Hg. Pericardium/ Pleura There is no pericardial effusion. There is no pleural effusion. MMode/2D Measurements & Calculations LVIDd: 3.8 cm LVOT diam: 2.1 cm LVIDs: 2.6 cm Ao root diam: 2.7 cm FS: 31.3 % asc Aorta Diam: 3.6 cm IVSd: 1.1 cm Ao Arch Diam (Prox Trans): 2.9 cm LVPWd: 0.97 cm LV bower. diameter/BSA (cm/m^2): 2.0 LV sys. diameter/BSA (cm/m^2): 1.4 LA A2 area: 23.1 cm2 RA long axis: 6.5 cm LA A4 area: 21.9 cm2 RA area: 21.9 cm2 LA length (vol): 6.4 cm RA vol: 63.1 ml LA vol: 67.4 ml RA : 33.8 ml/m2 LA vol index: 36.0 ml/m2 IVC diam: 2.8 cm RVD1 (basal): 3.7 cm RVD2 (mid): 3.5 cm TAPSE: 1.8 cm Doppler Measurements & Calculations Ao V2 max: 257.9 cm/sec LVOT Max Rogerio: 77.6 cm/sec Ao V2 mean: 176.6 cm/sec LV V1 max P.4 mmHg Ao max P.8 mmHg LV V1 VTI: 19.3 cm Ao mean P.7 mmHg JOSEPH(I,D): 1.1 cm2 Ao V2 VTI: 62.4 cm JOSEPH(V,D): 1.1 cm2 sev ratio: 0.31 JOSEPH indexed to BSA (cm^2/m^2): 0.59 MV E max rogerio: 102.2 cm/sec TR max rogerio: 238.6 cm/sec MV A max rogerio: 2.7 cm/sec TR max P.8 mmHg MV E/A: 38.3 PA V2 max: 91.5 cm/sec Med Peak E' Rogerio: 6.9 cm/sec PA V2 mean: 60.1 cm/sec E/E' med: 14.9 PA mean P.7 mmHg Lat Peak E' Rogerio: 9.7 cm/sec PA pr(Accel): 43.0 mmHg E/E' lat: 10.6 E/e' average: 12.7 MV dec time: 0.17 sec SV(LVOT): 68.4 ml Reading Physician:01:44 PM
== END ==
PROVIDERS: PCP Student in an Organized Health Care Education/Training Program; Referring Provider Student in an Organized Health Care Education/Training Program; Visit Provider Student in an Organized Health Care Education/Training Program
DX: I08.3 Combined rheumatic disorders of mitral, aortic and tricuspid valves; R06.00 Dyspnea, unspecified
CPT/HCPCS: 93306

== ENCOUNTER 2021-09-25 21:49 | Inpatient (IN) | payer OTHER, SELFPAY ==
[2021-09-25] VITALS (8 sets, daily range): BP systolic 146–201; BP diastolic 66–79; PULSE 77–80; RESP 25–42; TEMP 37.1; O2SAT 81–99; BMI 36.1
--- NOTE | 2021-09-25 22:09 | DI.RAD.S_ITS ---
PROCEDURE: XR CHEST 1V INDICATIONS: Eval for pneumonia TECHNIQUE: One view of the chest was acquired. COMPARISON: [facility], CR, XR CHEST 2V, 09/10/2021, 11:12. FINDINGS: Surgical changes and devices: None. Lungs and pleura: Persistent diffuse interstitial prominence. This is likely chronic in etiology. No focal consolidation. No pneumothorax or pleural effusion. Mediastinum: Mediastinal contours appear stable. Heart size is mildly enlarged. Bones and chest wall: No suspicious bony lesions. Overlying soft tissues appear unremarkable. IMPRESSION: 1. Persistent mild cardiomegaly without evidence for acute cardiopulmonary abnormalities. 2. Redemonstration of chronic interstitial prominence. No focal airspace disease identified. Dictated by: Chico Hess M.D. on 09/25/2021 at 22:34 Approved by: Chico Hess M.D. on 09/25/2021 at 22:36
[2021-09-25 22:20] LABS: Add Manual Diff / Slide Review NO; Basophils Absolute Auto 100 /uL (0-100); Basophils Percent Auto 0.6 % (0-2); Eosinophils Absolute Auto 300 /uL (0-450); Eosinophils Percent Auto 2.2 % (2-4); Hematocrit 40.9 % (36-46); Hemoglobin 13.6 g/dL (12.0-16.0); Lymphocytes Absolute Auto 1600 /uL (1100-4500); Lymphocytes Percent Auto 12.3 % (25-40); Mean Corpuscular HGB Conc 33.3 % (30-36); Monocytes Absolute Auto 1100 /uL (0-900); Monocytes Percent Auto 8.8 % (3-14); Neutrophils Absolute Auto 9900 /uL (1500-7000); Neutrophils Percent Auto 76.1 % (50-75); Platelet Count 256 X10^3/uL (150-400); Red Cell Distribution Width 13.2 % (11.6-14.8)
--- NOTE | 2021-09-25 22:39 | ED.GENADULT ---
HPI - General Adult General Chief complaint: Upper Respiratory Symptoms Stated complaint: SOB Time Seen by Provider: 09/25/21 22:08 Source: patient Mode of arrival: EMS History of Present Illness HPI narrative: Patient is a 85-year-old female. History of high blood pressure. Is here for evaluation of shortness of breath. She has had some issues with shortness of breath for some time. She has seen her primary doctor. Approximately 10 days ago had a echocardiogram performed as an outpatient. Also had a chest x-ray. She was told that she had fluid around her heart. She was on a diuretic for a while but she has subsequently completed the course of this. Her has had an upper respiratory infection but that seems to be improving. She states that over the past couple days she has had worsening shortness of breath and yesterday and last evening had a very difficult time sleeping and then today had quite a bit of shortness of breath. She contacted EMS because of this. Upon arrival EMS stated that the out her oxygen saturations to be in the mid to upper 80s. They placed her on oxygen. This improve her oxygen saturation in the patient also states she felt better with this. She is not having chest pain. No fevers. She does have a wet cough and is sometimes productive. She has no diagnosed underlying lung pathology per her report. Not on oxygen at baseline at home. Related Data Home Medications Medication Instructions Recorded Confirmed fluticasone propionate 50 1 spray INTRANASAL QAM PRN #0 09/02/17 09/26/21 mcg/actuation nasal spray,suspension Vitamin D3 2 cap PO QWEEK 08/20/18 09/26/21 escitalopram oxalate 20 mg tablet 20 mg PO DAILY PRN 08/20/18 09/26/21 olmesartan 40 mg tablet 40 mg PO QPM 08/20/18 09/26/21 lisinopril 10 mg tablet 10 mg PO DAILY 09/26/21 09/26/21 pregabalin 75 mg capsule 75 mg PO DAILY 09/26/21 09/26/21 rosuvastatin 5 mg tablet 5 mg PO BEDTIME 09/26/21 09/26/21 Allergies Allergy/AdvReac Type Severity Reaction Status Date / Time bupropion Allergy Mild ITCHING Verified 09/25/21 21:55 Review of Systems Review of Systems ROS Unobtainable: All systems reviewed & are unremarkable except as noted in HPI and below Patient History Medical History Allergy (Unknown) Anxiety (Unknown) Arthritis (Unknown) Carpal tunnel syndrome (2015) Cataracts, bilateral (Unknown) Depression (Unknown) Fecal incontinence (10/2016) Foot pain (Unknown) Fractures (Unknown) HTN (hypertension) Low back pain (Unknown) Peripheral neuropathy (Unknown) Surgical History H/O bladder repair surgery (Unknown) Status post hysterectomy Family History Father Heart disease Social History household members: spouse Smoking Status: Never smoker Smoking Status: Never smoker alcohol intake frequency: holidays/special occasions only Substance Use Type: does not use Exam Initial Vital Signs Initial Vital Signs: Vital Signs Pulse Rate 78 09/25/21 21:53 Respiratory Rate 26 H 09/25/21 21:53 Pulse Oximetry 99 09/25/21 21:53 Const General: cooperative and comfortable HENMT Head: normal to inspection and normocephalic Resp Effort & Inspection: normal respiratory effort, not labored, no respiratory distress and tachypneic Auscultation: crackles and rhonchi Cardio Rate: regular rate Rhythm: abnormal rhythm GI Inspection: non-distended Palpation: soft Skin General: no rashes or lesions noted Neuro General: patient alert, patient awake, patient oriented x3 and moves all extremities Speech: speech normal Extrem General: No edema Psych Appearance: grossly normal and well kempt Course Orders Ordered: ED Orders 09/25/21 21:45 BNP [NT-proBNP (BNP-Adult 18+)] Stat Complete Blood Count AUTO DIFF Stat Comprehensive Metabolic Panel Stat Lipase Stat Procalcitonin Stat Troponin & CK Cardiac Panel Stat 09/25/21 22:09 XR chest 1V Stat 09/25/21 22:10 EKG-12 Lead Stat 09/25/21 22:20 Respiratory Panel (Film Array) Stat 09/25/21 23:46 Blood Culture Stat 09/26/21 00:20 Consult to Physician Urgent 09/26/21 06:00 Basic Metabolic Panel Stat Complete Blood Count AUTO DIFF Stat NT-proBNP (BNP-Adult 18+) Stat Ondansetron HCl (Ondansetron 4 Mg/2 Ml Inj) 4 mg IV Q4HR PRN PRN Reason: Nausea And Vomiting Discontinued Medications Furosemide (Furosemide 40 Mg/4 Ml Vial) 40 mg IV NOW ONE Stop: 09/25/21 23:55 Last Admin: 09/26/21 00:20 Dose: 40 mg Documented by: TERI Azithromycin 500 mg/ Dextrose 250 mls @ 250 mls/hr IV NOW ONE Stop: 09/25/21 23:46 Last Infusion: 09/26/21 02:20 Dose: 0 mls/hr Documented by: Infusion: 09/26/21 01:39 Dose: 0 mls/hr Documented by: Admin: 09/26/21 00:46 Dose: 250 mls/hr Documented by: TERI Ceftriaxone Sodium 1,000 mg/ (Sodium Chloride) 100 mls @ 200 mls/hr IV NOW ONE Stop: 09/25/21 23:46 Last Infusion: 09/26/21 00:46 Dose: 0 mls/hr Documented by: Admin: 09/26/21 00:20 Dose: 200 mls/hr Documented by: TERI Vital Signs Vital signs: Vital Signs - 8 hr 09/25/21 21:53 09/25/21 21:55 09/25/21 22:00 Temperature 98.8 F Pulse Rate 78 80 78 Respiratory Rate 26 H 25 H 34 H Blood Pressure 190/76 H 201/79 H Pulse Oximetry 99 97 97 09/25/21 22:30 09/25/21 22:31 09/25/21 23:00 Temperature Pulse Rate 78 79 79 Respiratory Rate 35 H 32 H 29 H Blood Pressure 164/70 H 146/66 H Pulse Oximetry 96 97 95 09/25/21 23:21 09/25/21 23:30 09/26/21 00:00 Temperature Pulse Rate 77 83 Respiratory Rate 42 H 25 H 35 H Blood Pressure Pulse Oximetry 81 L 94 94 09/26/21 00:19 Temperature Pulse Rate 76 Respiratory Rate 31 H Blood Pressure 131/62 Pulse Oximetry 94 Medical Decision Making Medical Records Medical records reviewed: Yes I reviewed the patient's medical records. Lab Data Lab results reviewed: Yes I reviewed the patient's lab results. Result diagrams: 09/25/21 21:45 09/25/21 21:45 Labs: Lab Results 09/25/21 09/25/21 09/25/21 Range/Units 21:45 21:45 21:45 WBC 13.0 H (4.5-11.0) X10^3/uL RBC 4.70 (4.0-5.2) X10^6/uL Hgb 13.6 (12.0-16.0) g/dL Hct 40.9 (36-46) % MCV 87.0 (80-100) fL MCH 29.0 (26-34) PG MCHC 33.3 (30-36) % RDW 13.2 (11.6-14.8) % Plt Count 256 (150-400) X10^3/uL Neut % (Auto) 76.1 H (50-75) % Lymph % (Auto) 12.3 L (25-40) % Bonner % (Auto) 8.8 (3-14) % Eos % (Auto) 2.2 (2-4) % Baso % (Auto) 0.6 (0-2) % Neut # (Auto) 9900 H (7357-2389) /uL Lymph # (Auto) 1600 (5495-5644) /uL Bonner # (Auto) 1100 H (0-900) /uL Eos # (Auto) 300 (0-450) /uL Baso # (Auto) 100 (0-100) /uL Sodium 140 (137-145) mmol/L Potassium 4.4 (3.4-5.1) mmol/L Chloride 105 (98-107) mmol/L Carbon Dioxide 27 (22-32) mmol/L BUN 18 H (7-17) mg/dL Creatinine 0.91 (0.52-1.04) mg/dL Estimated GFR > 60 (>60) mL/min BUN/Creatinine Ratio 19.8 (6-22) Glucose 164 H (80-110) mg/dL Calcium 9.1 (8.4-10.2) mg/dL Total Bilirubin 0.6 (0.2-1.3) mg/dL AST 37 H (14-36) IU/L ALT 33 (<35) IU/L Alkaline Phosphatase 98 (38-126) U/L Total Creatine Kinase 54 (30-135) U/L CK-MB (CK-2) TNP CK-MB (CK-2) Rel Index TNP Troponin I 0.019 (0.01-0.034) ng/mL NT-Pro-B Natriuret Pep 1850 H (<450) pg/mL Total Protein 7.8 (6.3-8.2) g/dL Albumin 4.4 (3.5-5.0) g/dL Globulin 3.4 (1.7-4.1) g/dL Albumin/Globulin Ratio 1.3 (1.0-2.8) Lipase 44 (23-300) U/L Procalcitonin (<0.5) ng/mL Chlamy pneumoniae PCR (Not Detect) Adenovirus (PCR) (Not Detect) B. pertussis DNA (PCR) (Not Detecte) B.parapertussis DNA PCR (Not Detecte) Coronavirus OC43 (PCR) (Not Detect) Coronavirus HKU1 (PCR) (Not Detect) Coronavirus 229E (PCR) (Not Detect) SARS-CoV-2 (PCR) (Not Detecte) Coronavirus NL63 (PCR) (Not Detect) Human Metapneumovir PCR (Not Detect) Influenza Type A (PCR) (Not Detect) Influenza Type B (PCR) (Not Detect) M. pneumoniae (PCR) (Not Detect) Parainfluenza 1 (PCR) (Not Detect) Parainfluenza 2 (PCR) (Not Detect) Parainfluenza 3 (PCR) (Not Detect) Parainfluenza 4 (PCR) (Not Detect) RSV (PCR) (Not Detect) Entero/Rhino (PCR) (Not Detect) 09/25/21 09/25/21 Range/Units 21:45 22:20 WBC (4.5-11.0) X10^3/uL RBC (4.0-5.2) X10^6/uL Hgb (12.0-16.0) g/dL Hct (36-46) % MCV (80-100) fL MCH (26-34) PG MCHC (30-36) % RDW (11.6-14.8) % Plt Count (150-400) X10^3/uL Neut % (Auto) (50-75) % Lymph % (Auto) (25-40) % Bonner % (Auto) (3-14) % Eos % (Auto) (2-4) % Baso % (Auto) (0-2) % Neut # (Auto) (0350-7865) /uL Lymph # (Auto) (2754-8869) /uL Bonner # (Auto) (0-900) /uL Eos # (Auto) (0-450) /uL Baso # (Auto) (0-100) /uL Sodium (137-145) mmol/L Potassium (3.4-5.1) mmol/L Chloride (98-107) mmol/L Carbon Dioxide (22-32) mmol/L BUN (7-17) mg/dL Creatinine (0.52-1.04) mg/dL Estimated GFR (>60) mL/min BUN/Creatinine Ratio (6-22) Glucose (80-110) mg/dL Calcium (8.4-10.2) mg/dL Total Bilirubin (0.2-1.3) mg/dL AST (14-36) IU/L ALT (<35) IU/L Alkaline Phosphatase (38-126) U/L Total Creatine Kinase (30-135) U/L CK-MB (CK-2) CK-MB (CK-2) Rel Index Troponin I (0.01-0.034) ng/mL NT-Pro-B Natriuret Pep (<450) pg/mL Total Protein (6.3-8.2) g/dL Albumin (3.5-5.0) g/dL Globulin (1.7-4.1) g/dL Albumin/Globulin Ratio (1.0-2.8) Lipase (23-300) U/L Procalcitonin 0.06 (<0.5) ng/mL Chlamy pneumoniae PCR Not detected (Not Detect) Adenovirus (PCR) Not detected (Not Detect) B. pertussis DNA (PCR) Not detected (Not Detecte) B.parapertussis DNA PCR Not detected (Not Detecte) Coronavirus OC43 (PCR) Not detected (Not Detect) Coronavirus HKU1 (PCR) Not detected (Not Detect) Coronavirus 229E (PCR) Not detected (Not Detect) SARS-CoV-2 (PCR) Not detected (Not Detecte) Coronavirus NL63 (PCR) Not detected (Not Detect) Human Metapneumovir PCR Not detected (Not Detect) Influenza Type A (PCR) Not detected (Not Detect) Influenza Type B (PCR) Not detected (Not Detect) M. pneumoniae (PCR) Not detected (Not Detect) Parainfluenza 1 (PCR) Not detected (Not Detect) Parainfluenza 2 (PCR) Not detected (Not Detect) Parainfluenza 3 (PCR) Not detected (Not Detect) Parainfluenza 4 (PCR) Not detected (Not Detect) RSV (PCR) Not detected (Not Detect) Entero/Rhino (PCR) Detected H (Not Detect) Imaging Data Chest x-ray: Radiologist's Impression: [address] [address] XRay Report Signed Patient: Nanda Nascimento MR#: [id number] : 1935 Acct:[id number] Age/Sex: 85 / F Date of Service: 09/25/21 Loc: ED Accession Number: [id number] ?? Procedure: XR chest 1V Ordering Provider: Dillan Stewart D.O. PROCEDURE:? XR CHEST 1V ? INDICATIONS:? Eval for pneumonia ? TECHNIQUE:? One view of the chest was acquired.? ? COMPARISON:? [facility], CR, XR CHEST 2V, 09/10/2021, 11:12. ? FINDINGS:? ? Surgical changes and devices:? None.? ? Lungs and pleura:? Persistent diffuse interstitial prominence.? This is likely chronic in etiology.? No focal consolidation.? No pneumothorax or pleural effusion. ? Mediastinum:? Mediastinal contours appear stable.? Heart size is mildly enlarged.? ? Bones and chest wall:? No suspicious bony lesions.? Overlying soft tissues appear unremarkable.? ? IMPRESSION:? ? 1. Persistent mild cardiomegaly without evidence for acute cardiopulmonary abnormalities. ? 2. Redemonstration of chronic interstitial prominence.? No focal airspace disease identified.? ? ? Dictated by: Chico Hess M.D. on 09/25/2021 at 22:34 ? ? Approved by: Chico Hess M.D. on 09/25/2021 at 22:36 ECG Data Attestation: I personally reviewed and interpreted this ECG as follows: Interpretation: Atrial fibrillation Ventricular rate 82 Normal axis Normal QRS No ST T wave changes MDM Narrative Medical decision making narrative: Patient is afebrile however has coarse lung sounds. A productive cough, tachypnea and hypoxia and leukocytosis. Secondary to this will treat her as pneumonia. Was given antibiotics here in the ER. Chest x-ray does not show pneumonia in is unchanged from prior. Also considered CHF/fluid overload is she has been on Lasix in the past but the echocardiogram recently is really reassuring. Patient is requiring oxygen to maintain saturations greater than 90%. Secondary to this she does require admission to the hospital. Discussed the case with Dr. Ornelas on-call for the patient's primary care doctor's group who will admit for further evaluation treatment. Discussed need for admission with the patient. She expressed understanding agreement as well Discharge Plan Departure Patient Disposition: Admitted As Inpatient Clinical Impression: Pneumonia, Hypoxia Admit Date/Time: 09/26/21 00:39 Admit Provider: Jean Carlos Ornelas
[2021-09-25 23:15] LABS: Alanine Aminotransferase 33 IU/L (<35); Albumin 4.4 g/dL (3.5-5.0); Albumin Globulin Ratio 1.3 (1.0-2.8); Alkaline Phosphatase 98 U/L (38-126); Aspartate Aminotransferase 37 IU/L (14-36); BUN Creatinine Ratio 19.8 (6-22); Bilirubin Total 0.6 mg/dL (0.2-1.3); Blood Urea Nitrogen 18 mg/dL (7-17); Calcium 9.1 mg/dL (8.4-10.2); Carbon Dioxide 27 mmol/L (22-32); Chloride 105 mmol/L (98-107); Creatine Kinase 54 U/L (30-135); Estimated Glomerular Filt Rate > 60 mL/min (>60); Globulin 3.4 g/dL (1.7-4.1); Glucose 164 mg/dL (80-110); HEMOLYSIS < 15 (0-50); Lipase 44 U/L (23-300); Potassium 4.4 mmol/L (3.4-5.1); Sodium 140 mmol/L (137-145); Total Protein 7.8 g/dL (6.3-8.2)
[2021-09-25 23:25] LABS: NT-proBNP (BNP-Adult 18+) 1850 pg/mL (<450)
[2021-09-25 23:27] LABS: Troponin I 0.019 ng/mL (0.01-0.034)
[2021-09-26] VITALS (14 sets, daily range): BP systolic 110–147; BP diastolic 54–83; PULSE 74–83; RESP 19–35; TEMP 36.3–37.3; O2SAT 94–99; BMI 36.1
[2021-09-26 00:15] LABS: Procalcitonin 0.06 ng/mL (<0.5)
[2021-09-26 00:20] LABS: Adenovirus Not Detected (Not Detect); Coronavirus 229E Not Detected (Not Detect); Coronavirus HKU1 Not Detected (Not Detect); Coronavirus NL 63 Not Detected (Not Detect); Coronavirus OC43 Not Detected (Not Detect); Human Metapneumovirus Not Detected (Not Detect); Human Rhinovirus/Enterovirus Detected (Not Detect); Influenza A Not Detected (Not Detect); Influenza B Not Detected (Not Detect); Parainfluenza Virus 1 Not Detected (Not Detect); Parainfluenza Virus 2 Not Detected (Not Detect); Parainfluenza Virus 3 Not Detected (Not Detect); Parainfluenza Virus 4 Not Detected (Not Detect); SARS- CoV-2 Not Detected (Not Detecte)
[2021-09-26] MEDS: FUROSEMIDE 40 MG/4 ML VIAL IV (00:20)
[2021-09-26] MEDS: cefTRIAXone 1,000 MG in SODIUM CHLORIDE 0.9% 100 ML 200 ML IV ×2 (00:20→21:16)
[2021-09-26 00:21] LABS: B. parapertussis Not Detected (Not Detecte); Bordetella pertussis Not Detected (Not Detecte); Chlamydophila pneumoniae Not Detected (Not Detect); Mycoplasma pneumoniae Not Detected (Not Detect); Respiratory Syncytial Virus Not Detected (Not Detect)
[2021-09-26] MEDS: AZITHROMYCIN 500 MG in DEXTROSE 5% IN WATER 250 ML IV ×2 (00:46→19:53)
--- NOTE | 2021-09-26 02:16 | PC.NURSE ---
Pt to room 224 via stretcher with BANQUET ATTENDANT and Spouse. Pt able to transfer self to bed. O2 sat mid 90's on exertion. Frequent cough and coarse rhonchi. Pt is alert and oriented x 3. Denies pain. State she has a headache that comes and goes secondary to severe coughing. Spouse rooming in as they are from [facility]. Oriented Pt to room, call light, bed controls, and tv controls. Bed alarm on for safety. Pt agrees to call for assistance as needed and to not get up without help.
[2021-09-26 05:05] LABS: Add Manual Diff / Slide Review NO; Basophils Absolute Auto 100 /uL (0-100); Basophils Percent Auto 0.5 % (0-2); Eosinophils Absolute Auto 400 /uL (0-450); Hematocrit 42.7 % (36-46); Hemoglobin 14.1 g/dL (12.0-16.0); Lymphocytes Absolute Auto 1300 /uL (1100-4500); Lymphocytes Percent Auto 11.2 % (25-40); Mean Corpuscular HGB Conc 33.1 % (30-36); Mean Corpuscular Hemoglobin 28.7 PG (26-34); Mean Corpuscular Volume 86.7 fL (80-100); Monocytes Absolute Auto 1000 /uL (0-900); Monocytes Percent Auto 8.8 % (3-14); Neutrophils Absolute Auto 9000 /uL (1500-7000); Neutrophils Percent Auto 76.5 % (50-75); Platelet Count 245 X10^3/uL (150-400); Red Blood Cell Count 4.92 X10^6/uL (4.0-5.2); Red Cell Distribution Width 13.7 % (11.6-14.8); White Blood Cell Count 11.8 X10^3/uL (4.5-11.0)
[2021-09-26 05:07] LABS: BUN Creatinine Ratio 17.2 (6-22); Blood Urea Nitrogen 15 mg/dL (7-17); Calcium 8.8 mg/dL (8.4-10.2); Carbon Dioxide 31 mmol/L (22-32); Chloride 101 mmol/L (98-107); Estimated Glomerular Filt Rate > 60 mL/min (>60); Glucose 131 mg/dL (80-110); HEMOLYSIS < 15 (0-50); Potassium 3.7 mmol/L (3.4-5.1); Sodium 142 mmol/L (137-145)
[2021-09-26 05:16] LABS: NT-proBNP (BNP-Adult 18+) 2150 pg/mL (<450)
[2021-09-26] MEDS: ACETAMINOPHEN 325 MG TABLET 650 MG PO (10:06)
[2021-09-26] MEDS: ENOXAPARIN 40 MG/0.4 ML SYRINGE SUBCUT (10:06)
[2021-09-26] MEDS: lisinopriL 10 MG TABLET PO (10:07)
[2021-09-26] MEDS: PREGABALIN 75 MG CAPSULE PO (10:07)
[2021-09-26 10:26] LABS: BUN Creatinine Ratio 15.3 (6-22); Blood Urea Nitrogen 13 mg/dL (7-17); Calcium 8.7 mg/dL (8.4-10.2); Carbon Dioxide 30 mmol/L (22-32); Chloride 100 mmol/L (98-107); Estimated Glomerular Filt Rate > 60 mL/min (>60); Glucose 255 mg/dL (80-110); HEMOLYSIS 16 (0-50); Potassium 3.7 mmol/L (3.4-5.1); Sodium 137 mmol/L (137-145)
[2021-09-26] MEDS: SODIUM CHLORIDE 0.9% 1,000 ML 100 ML IV (10:43)
--- NOTE | 2021-09-26 11:26 | CM.DANOTE ---
DCP: Case received, EMR reviewed. Patient is on isolation precautions, was able to call patient's room and talk to her. Introduced self and role over the phone. Completed DCP assessment based upon information currently available. Patient is an 85 year old female who admitted early this morning to the care of the hospitalist team. PCP: Dr. Anderson. Payer: confirmed: [employer]. Patient came to the hospital via ambulance secondary to having difficulty breathing, shortness of breath. According to notes, patient has been having shortness of breath, and did see her primary care provider approximately 10 days, and an echocardiogram was performed, as well as chest x-ray. She was noted to have some fluid around her heart, and was placed on a diuretic. Patient had developed worsening shortness of breath yesterday and last evening and was hard for her to sleep. Patient was noted by EMS to have sats in the 80s, and was placed on oxygen., she is not on home oxygen. Patient is being treated for rhinovirus, and being treated for pneumonia. Called patient in her room since she is on isolation. Could see from her window that she is laying in bed, oxygen in place. She is alert and oriented. Confirmed with her that she resides on [facility] with her spouse, Michael. She does not drive, her spouse takes her to her appointments as needed. Patient stated that she uses a FWW at night when she uses the bathroom, and a cane during the day. P: DCP to continue to watch patient closely. Will see how she does here in the hospital. When she gets closer to being medically stable, will see if she may benefit with home health, or P.T. here at the hospital. Silvia Hinojosa RN/Water Resource Specialist Discharge Planning/Care Management CM Discharge Assessment Start: 09/26/21 11:25 Freq: Status: Active Protocol: Document 09/26/21 11:25 (Rec: 09/26/21 11:26 [email or web address]) Discharge Planning Assessment Assigned Supervisor Engraving Silvia Hinojosa RN/Water Resource Specialist Advance Directives? Yes Advance Directives on File Yes History Provided By Patient,Medical Record Prior Living Arrangements House Household Members spouse Type of transporation used prior to Relies on Others admit Comment Patient indicated, her takes her to all appointments. Independent with ADL's Yes Is patient alert and oriented? Yes Needs Assistance With Home Chores / Shopping DME Already Rented / Owned FWW / Walker,Cane Barriers to Discharge No Discharge Plan Home Transportation Arrangement Spouse Referrals Initiated Other Additional Comment Will see how patient does here in the hospital, she may benefit with home health Whiteboard Updated in Patient Room with No name and ext. # of Supervisor Engraving Comment Patient is on isolation for rhinovirus. Review Status In Process Next Review Type Continued Stay Review
--- NOTE | 2021-09-26 13:11 | P.HP_ITS ---
History of Present Illness History of Present Illness Date Patient Seen: 09/26/21 Time Patient Seen: 13:11 Date of Onset of Symptoms: 09/23/21 Chief complaint: SOB Narrative: Patient is a 85-year-old female who presents with shortness of breath. Parent life for the last 2 weeks she has been feeling some increase in shortness of breath. She had an echo done which showed no change no significant disease that has made any impact include he no change in LV function. She does have a history of aortic stenosis. Patient felt like things were least stable until 2 or 3 days ago when she started getting sick her had had a bad cold the week before and she started feeling similar. Runny nose cough progressively got worse over the course of yesterday until things seem to change. She had no chest pain or shortness of breath. No orthopnea or PND. She progressively got a worse cough which is very wet and feels like it might be some productive she does does not feel like she can get up. She has had no fevers but has had chill s. No nausea or vomiting no urinary changes has had history of UTI in the past. But did not feel like that was going on. She has had no bowel movement changes. No blood in her stool. Otherwise feeling well. Was brought to the emergency room with a PO2 in the low 80s which did respond well to oxygen. Past medical history see below but also has history of prediabetes at past surgical history hysterectomy Family history Father 81 heart disease hypertension hyperlipidemia, mother 87 kidney failure hypertension hyperlipidemia, only child. Social history. , 4 children, retired Patient History Medical History Allergy (Unknown) Anxiety (Unknown) Arthritis (Unknown) Carpal tunnel syndrome (2015) Cataracts, bilateral (Unknown) Depression (Unknown) Fecal incontinence (10/2016) Foot pain (Unknown) Fractures (Unknown) HTN (hypertension) Low back pain (Unknown) Peripheral neuropathy (Unknown) Surgical History H/O bladder repair surgery (Unknown) Status post hysterectomy Family & Social History Family History Father Heart disease Social History: household members spouse Prior Living Arrangements House Safety & Behavioral: Feels Safe in Current Yes Environment Been Physically Hurt or No Threatened By a Person Suicidal Ideation Description None Suicide Plan Description No Plan Tobacco & Substance use: Smoking Status Never smoker alcohol intake frequency holiday/special occasion Substance Use Type does not use Meds Home Medications and Allergies Home Medications Medication Instructions Recorded Confirmed Type fluticasone propionate 50 1 spray INTRANASAL QAM PRN #0 09/02/17 09/26/21 History mcg/actuation nasal spray,suspension Vitamin D3 2 cap PO QWEEK 08/20/18 09/26/21 History escitalopram oxalate 20 mg tablet 20 mg PO DAILY PRN 08/20/18 09/26/21 History olmesartan 40 mg tablet 40 mg PO QPM 08/20/18 09/26/21 History lisinopril 10 mg tablet 10 mg PO DAILY 09/26/21 09/26/21 History pregabalin 75 mg capsule 75 mg PO DAILY 09/26/21 09/26/21 History rosuvastatin 5 mg tablet 5 mg PO BEDTIME 09/26/21 09/26/21 History Allergies Allergy/AdvReac Type Severity Reaction Status Date / Time bupropion Allergy Mild ITCHING Verified 09/25/21 21:55 Review of Systems Review of Systems Narrative: please see above all negative except what is listed Exam Vital Signs (past 8 hours): - 09/26/21 07:31 09/26/21 10:01 09/26/21 10:07 Temperature 99.0 F Pulse Rate 83 77 Respiratory Rate 22 Blood Pressure 115/73 140/65 Pulse Oximetry 98 97 09/26/21 13:07 Temperature 99.2 F Pulse Rate 80 Respiratory Rate 21 Blood Pressure 119/57 L Pulse Oximetry 97 Oxygen Delivery Method Nasal Cannula Oxygen Flow Rate 4 Narrative Exam Narrative: alert elderly female in mild respiratory distress coughing intermittently. Tympanic membranes are normal conjunctiva clear posterior pharynx shows mild dryness. Neck supple without adenopathy lungs show diffuse coarse rhonchi with no crackles. Heart regular rate and rhythm without murmurs clicks or gallops abdomen is soft positive bowel sounds nontender. Extremities without cyanosis clubbing edema. Skin is without rash. Normal turgor. Objective Labs Result Diagrams: 09/26/21 04:25 09/26/21 10:05 Labs: Laboratory Results - last 24 hr 09/25/21 09/25/21 09/25/21 21:45 21:45 21:45 WBC 13.0 H RBC 4.70 Hgb 13.6 Hct 40.9 MCV 87.0 MCH 29.0 MCHC 33.3 RDW 13.2 Plt Count 256 Neut % (Auto) 76.1 H Lymph % (Auto) 12.3 L [place] % (Auto) 8.8 Eos % (Auto) 2.2 Baso % (Auto) 0.6 Neut # (Auto) 9900 H Lymph # (Auto) 1600 [place] # (Auto) 1100 H Eos # (Auto) 300 Baso # (Auto) 100 Sodium 140 Potassium 4.4 Chloride 105 Carbon Dioxide 27 BUN 18 H Creatinine 0.91 Estimated GFR > 60 BUN/Creatinine Ratio 19.8 Glucose 164 H Calcium 9.1 Total Bilirubin 0.6 AST 37 H ALT 33 Alkaline Phosphatase 98 Total Creatine Kinase 54 CK-MB (CK-2) TNP CK-MB (CK-2) Rel Index TNP Troponin I 0.019 NT-Pro-B Natriuret Pep 1850 H Total Protein 7.8 Albumin 4.4 Globulin 3.4 Albumin/Globulin Ratio 1.3 Lipase 44 Procalcitonin Chlamy pneumoniae PCR Adenovirus (PCR) B. pertussis DNA (PCR) B.parapertussis DNA PCR Coronavirus OC43 (PCR) Coronavirus HKU1 (PCR) Coronavirus 229E (PCR) SARS-CoV-2 (PCR) Coronavirus NL63 (PCR) Human Metapneumovir PCR Influenza Type A (PCR) Influenza Type B (PCR) M. pneumoniae (PCR) Parainfluenza 1 (PCR) Parainfluenza 2 (PCR) Parainfluenza 3 (PCR) Parainfluenza 4 (PCR) RSV (PCR) Entero/Rhino (PCR) 09/25/21 09/25/21 09/26/21 21:45 22:20 04:25 WBC 11.8 H RBC 4.92 Hgb 14.1 Hct 42.7 MCV 86.7 MCH 28.7 MCHC 33.1 RDW 13.7 Plt Count 245 Neut % (Auto) 76.5 H Lymph % (Auto) 11.2 L [place] % (Auto) 8.8 Eos % (Auto) 3.0 Baso % (Auto) 0.5 Neut # (Auto) 9000 H Lymph # (Auto) 1300 [place] # (Auto) 1000 H Eos # (Auto) 400 Baso # (Auto) 100 Sodium Potassium Chloride Carbon Dioxide BUN Creatinine Estimated GFR BUN/Creatinine Ratio Glucose Calcium Total Bilirubin AST ALT Alkaline Phosphatase Total Creatine Kinase CK-MB (CK-2) CK-MB (CK-2) Rel Index Troponin I NT-Pro-B Natriuret Pep Total Protein Albumin Globulin Albumin/Globulin Ratio Lipase Procalcitonin 0.06 Chlamy pneumoniae PCR Not detected Adenovirus (PCR) Not detected B. pertussis DNA (PCR) Not detected B.parapertussis DNA PCR Not detected Coronavirus OC43 (PCR) Not detected Coronavirus HKU1 (PCR) Not detected Coronavirus 229E (PCR) Not detected SARS-CoV-2 (PCR) Not detected Coronavirus NL63 (PCR) Not detected Human Metapneumovir PCR Not detected Influenza Type A (PCR) Not detected Influenza Type B (PCR) Not detected M. pneumoniae (PCR) Not detected Parainfluenza 1 (PCR) Not detected Parainfluenza 2 (PCR) Not detected Parainfluenza 3 (PCR) Not detected Parainfluenza 4 (PCR) Not detected RSV (PCR) Not detected Entero/Rhino (PCR) Detected H 09/26/21 09/26/21 04:25 10:05 WBC RBC Hgb Hct MCV MCH MCHC RDW Plt Count Neut % (Auto) Lymph % (Auto) [place] % (Auto) Eos % (Auto) Baso % (Auto) Neut # (Auto) Lymph # (Auto) [place] # (Auto) Eos # (Auto) Baso # (Auto) Sodium 142 137 Potassium 3.7 3.7 Chloride 101 100 Carbon Dioxide 31 30 BUN 15 13 Creatinine 0.87 0.85 Estimated GFR > 60 > 60 BUN/Creatinine Ratio 17.2 15.3 Glucose 131 H 255 H D Calcium 8.8 8.7 Total Bilirubin AST ALT Alkaline Phosphatase Total Creatine Kinase CK-MB (CK-2) CK-MB (CK-2) Rel Index Troponin I NT-Pro-B Natriuret Pep 2150 H Total Protein Albumin Globulin Albumin/Globulin Ratio Lipase Procalcitonin Chlamy pneumoniae PCR Adenovirus (PCR) B. pertussis DNA (PCR) B.parapertussis DNA PCR Coronavirus OC43 (PCR) Coronavirus HKU1 (PCR) Coronavirus 229E (PCR) SARS-CoV-2 (PCR) Coronavirus NL63 (PCR) Human Metapneumovir PCR Influenza Type A (PCR) Influenza Type B (PCR) M. pneumoniae (PCR) Parainfluenza 1 (PCR) Parainfluenza 2 (PCR) Parainfluenza 3 (PCR) Parainfluenza 4 (PCR) RSV (PCR) Entero/Rhino (PCR) Assessment & Plan Assessment & Plan narrative: Acute respiratory failure. Appears to be secondary to infectious disease. Whether this is viral or bacterial difficult to say. Chest x-ray did not show definitive pneumonia and history certainly points to a viral source but certainly could be bacterial with left shift. At this point will continue O2 respiratory therapy and albuterol and hope over the next 24 hours things seemed to improve. She understands we discussed goals she questions answered. Will hold Steroids for now. Infectious disease. Clearly pulmonary disease. Whether not this is bacterial viral so unclear nothing on chest x-ray but does have a left shift. History is more consistent with viral and she does have a positive Rhino virus test. Somewhat mixed pictures but given the profound hypoxia she has am going to add antibiotics and can be consistent with that. Patient understands. We discussed goals. Will see what happens over the next 24 hours. Repeat chest x-ray tomorrow. Dehydration. Mild. She has got fluids now for the last few hours am going to hold it given her history of congestive heart failure although her last echo showed good LV function. We will continue to follow. Pre diabetes. Sugar was 255. Will check hemoglobin A1c in a.m.. Depression stable. Continue usual medicines. Does not seem actively to be an issue History of neuropathy. Continue usual meds. No issue at this time. DVT prophylaxis will place on Lovenox GI prophylaxis stable. Disposition. given her hypoxia and respiratory failure as soon this will be a couple days. Depending on response to antibiotics. And respiratory therapy. She understands questions answered. 40 minutes spent in total care Time Spent With Patient Critical Care time: I spent a total of [] minutes of critical care time on this patient's care today; this time is exclusive of procedural time. Quality VTE Deep Vein Thrombosis/Pulmonary Embolism Present on Admission: No
[2021-09-26] MEDS: ALBUTEROL 2.5 MG/3 ML NEB (ADULT) INH ×2 (14:25→20:47)
[2021-09-26] MEDS: ATORVASTATIN 20 MG TABLET 10 MG PO (20:47)
[2021-09-27] VITALS (14 sets, daily range): BP systolic 110–144; BP diastolic 49–84; PULSE 74–89; RESP 14–20; TEMP 36.4–37.3; O2SAT 93–99
[2021-09-27] MEDS: ALBUTEROL 2.5 MG/3 ML NEB (ADULT) INH ×3 (01:43→15:38)
[2021-09-27 05:16] LABS: Add Manual Diff / Slide Review NO; Basophils Absolute Auto 100 /uL (0-100); Basophils Percent Auto 0.7 % (0-2); Eosinophils Absolute Auto 200 /uL (0-450); Hematocrit 38.9 % (36-46); Hemoglobin 12.7 g/dL (12.0-16.0); Lymphocytes Absolute Auto 1100 /uL (1100-4500); Lymphocytes Percent Auto 13.2 % (25-40); Mean Corpuscular HGB Conc 32.7 % (30-36); Mean Corpuscular Hemoglobin 28.4 PG (26-34); Mean Corpuscular Volume 87.1 fL (80-100); Monocytes Absolute Auto 1000 /uL (0-900); Monocytes Percent Auto 12.5 % (3-14); Neutrophils Absolute Auto 5900 /uL (1500-7000); Neutrophils Percent Auto 71.6 % (50-75); Platelet Count 231 X10^3/uL (150-400); Red Blood Cell Count 4.47 X10^6/uL (4.0-5.2); Red Cell Distribution Width 13.4 % (11.6-14.8); White Blood Cell Count 8.2 X10^3/uL (4.5-11.0)
[2021-09-27 05:29] LABS: Hemoglobin A1C% w Est Avg Glu 5.9 % (4.0-6.0)
[2021-09-27 05:30] LABS: Alanine Aminotransferase 26 IU/L (<35); Albumin 3.9 g/dL (3.5-5.0); Albumin Globulin Ratio 1.2 (1.0-2.8); Alkaline Phosphatase 73 U/L (38-126); Aspartate Aminotransferase 31 IU/L (14-36); BUN Creatinine Ratio 16.7 (6-22); Bilirubin Total 0.5 mg/dL (0.2-1.3); Blood Urea Nitrogen 13 mg/dL (7-17); Calcium 8.6 mg/dL (8.4-10.2); Carbon Dioxide 30 mmol/L (22-32); Chloride 103 mmol/L (98-107); Estimated Glomerular Filt Rate > 60 mL/min (>60); Globulin 3.3 g/dL (1.7-4.1); Glucose 133 mg/dL (80-110); HEMOLYSIS < 15 (0-50); Potassium 3.9 mmol/L (3.4-5.1); Sodium 139 mmol/L (137-145); Total Protein 7.2 g/dL (6.3-8.2)
[2021-09-27 05:38] LABS: NT-proBNP (BNP-Adult 18+) 1380 pg/mL (<450)
--- NOTE | 2021-09-27 08:45 | DI.RAD.S_ITS ---
PROCEDURE: XR CHEST 2V INDICATIONS: hypoxia TECHNIQUE: 2 views of the chest were acquired. COMPARISON: [facility], CR, XR CHEST 1V, 09/25/2021, 22:12. FINDINGS: Surgical changes and devices: None. Lungs and pleura: Lungs are clear. No pleural effusions or pneumothorax. Mediastinum: Mediastinal contours are normal. Heart size is enlarged, as before. Bones and chest wall: No suspicious bony abnormalities. Soft tissues appear unremarkable. IMPRESSION: Stable cardiomegaly. No acute pulmonary findings. Dictated by: Cassandra Duque M.D. on 09/27/2021 at 14:53 Approved by: Cassandra Duque M.D. on 09/27/2021 at 14:53
--- NOTE | 2021-09-27 10:16 | CM.MNRNOTE ---
Addendum entered by Mary De La Rosa R.N. 09/27/21 18:45: Patient tolerated her iv steroids earlier. She is resting comfortably and tolerating food. Patient denies pain. Original Note: Assess- Patient is alert and oriented x3. She is now on RA and she does have wheezes to bilateral lobes x4. She denies pain and is in the room visiting. Patient is lying supine in bed and she is moving around independently.. Will check on patient again soon.
[2021-09-27] MEDS: lisinopriL 10 MG TABLET PO (10:25)
[2021-09-27] MEDS: PREGABALIN 75 MG CAPSULE PO (10:25)
[2021-09-27] MEDS: ENOXAPARIN 40 MG/0.4 ML SYRINGE SUBCUT (10:26)
--- NOTE | 2021-09-27 11:38 | CM.DPC ---
DCP Cont: Patient remains on oxygen, still in place. A chest x-ray was ordered, pending results. Patient resides on [facility] with her spouse, Michael. She uses a FWW, and does not drive. Patient is alert and oriented, spoke to her on the phone yesterday. P: DCP to continue to check in for any needs. Silvia Hinojosa RN/Pill Maker
[2021-09-27] MEDS: methylPREDNISolone 125 MG/2 ML VIAL 60 MG IV ×2 (14:31→20:34)
[2021-09-27] MEDS: ATORVASTATIN 20 MG TABLET 10 MG PO (20:34)
[2021-09-27] MEDS: AZITHROMYCIN 500 MG in DEXTROSE 5% IN WATER 250 ML IV (20:34)
[2021-09-27] MEDS: SODIUM CHLORIDE 0.9% FLUSH 10 ML IV (20:35)
[2021-09-27] MEDS: cefTRIAXone 1,000 MG in SODIUM CHLORIDE 0.9% 100 ML 200 ML IV (22:09)
[2021-09-28 01:00] VITALS: BP 127/70; PULSE 76; RESP 18; TEMP 36.3; O2SAT 94
[2021-09-28] MEDS: MELATONIN 3 MG TABLET 6 MG PO (01:21)
--- NOTE | 2021-09-28 04:22 | PC.NURSE ---
Pt state she takes her lyrica at night too and she takes 2 tabs due to her neuropathy. she also takes her lexapro daily too. will make sure the doctor is aware of this information in the am.
[2021-09-28] MEDS: IBUPROFEN 400 MG TABLET PO (04:30)
[2021-09-28] MEDS: methylPREDNISolone 125 MG/2 ML VIAL 60 MG IV (04:30)
[2021-09-28 05:41] LABS: Add Manual Diff / Slide Review NO; Basophils Absolute Auto 0 /uL (0-100); Basophils Percent Auto 0.3 % (0-2); Eosinophils Absolute Auto 0 /uL (0-450); Hematocrit 40.2 % (36-46); Hemoglobin 13.2 g/dL (12.0-16.0); Lymphocytes Absolute Auto 700 /uL (1100-4500); Lymphocytes Percent Auto 9.6 % (25-40); Mean Corpuscular HGB Conc 32.8 % (30-36); Mean Corpuscular Hemoglobin 28.5 PG (26-34); Mean Corpuscular Volume 87.1 fL (80-100); Monocytes Absolute Auto 100 /uL (0-900); Monocytes Percent Auto 2.2 % (3-14); Neutrophils Absolute Auto 6000 /uL (1500-7000); Neutrophils Percent Auto 87.9 % (50-75); Platelet Count 270 X10^3/uL (150-400); Red Blood Cell Count 4.61 X10^6/uL (4.0-5.2); Red Cell Distribution Width 13.6 % (11.6-14.8); White Blood Cell Count 6.8 X10^3/uL (4.5-11.0)
[2021-09-28 05:50] LABS: BUN Creatinine Ratio 23.3 (6-22); Blood Urea Nitrogen 17 mg/dL (7-17); Calcium 9.4 mg/dL (8.4-10.2); Carbon Dioxide 30 mmol/L (22-32); Chloride 102 mmol/L (98-107); Estimated Glomerular Filt Rate > 60 mL/min (>60); Glucose 203 mg/dL (80-110); HEMOLYSIS < 15 (0-50); Potassium 4.5 mmol/L (3.4-5.1); Sodium 140 mmol/L (137-145)
[2021-09-28 07:33] VITALS: BP 136/82; PULSE 77; RESP 18; O2SAT 95
[2021-09-28] MEDS: PREGABALIN 75 MG CAPSULE PO (08:51)
[2021-09-28] MEDS: lisinopriL 10 MG TABLET PO (08:51)
[2021-09-28] MEDS: ENOXAPARIN 40 MG/0.4 ML SYRINGE SUBCUT (08:51)
[2021-09-28] MEDS: ESCITALOPRAM 10 MG TABLET 20 MG PO (09:03)
[2021-09-28] MEDS: ALBUTEROL 2.5 MG/3 ML NEB (ADULT) INH (09:07)
[2021-09-28 09:10] VITALS: O2SAT 94
--- NOTE | 2021-09-28 11:51 | PT.IIE ---
Current Diagnoses Acute respiratory failure with hypoxia (09/26/21) Surgical History (Last Reviewed 09/26/21 @ 13:14 by Jean Carlos Ornelas MD) Status post hysterectomy Medical History (Last Reviewed 09/26/21 @ 13:14 by Jean Carlos Ornelas MD) Allergy (Unknown) Anxiety (Unknown) Arthritis (Unknown) Carpal tunnel syndrome (2015) Cataracts, bilateral (Unknown) Depression (Unknown) Fecal incontinence (10/2016) Foot pain (Unknown) Fractures (Unknown) HTN (hypertension) Low back pain (Unknown) Peripheral neuropathy (Unknown) Physical Therapy Inpatient Evaluation/Re-Eval M1 PT/OT-IP Prior Functional Status Start: 09/28/21 11:42 Freq: Status: Active Protocol: Document 09/28/21 11:43 (Rec: 09/28/21 11:51 [id number]) Medical Review Prior Functional Status Medical History Reviewed Yes Mobility and Gait Used FWW at night; otherwise ambulated independently in home/community. Activities of Daily Living and IADL's Independent with self care and home care adls. Prior Functional Level (Other details) Enjoys cooking and walking for exercise. Social History Household Members spouse Living Arrangements House Number of Floors (Floors) Two Floors Number of Stairs To Enter/Railing? Able to stay on first floor. Level entrance. Home Environment Walk in Shower Home Equipment Front Wheel Walker,Straight Cane,Shower Seat without Backrest,Grab Bars In Shower Employment Status Retired M2 PT-IP Current Condition Start: 09/28/21 11:42 Freq: Status: Active Protocol: Document 09/28/21 11:43 (Rec: 09/28/21 11:51 [id number]) Physical Therapy Current Condition Current Condition Evaluation Date 09/28/21 Treatment Diagnosis generalized weakness Onset Date 09/26/21 M3 PT-IP Subjective Start: 09/28/21 11:42 Freq: Status: Active Protocol: Document 09/28/21 11:43 (Rec: 09/28/21 11:51 [id number]) Subjective Physical Therapy Visit Type Type Initial Evaluation Visit Start Time 11:00 Visit Stop Time 11:30 Total Visit Minutes 29 Physical Therapy Visit Comments Patient Goals Return to walking for exercise Therapy Pain Assessment Pain When Pain Assessed During Mobility Pain Present Pain Present Denied Pain M4 PT-IP Mobility and Gait Start: 09/28/21 11:42 Freq: Status: Active Protocol: Document 09/28/21 11:43 BC (Rec: 09/28/21 11:51 BC [id number]) PT-Bed Mobility Assessment Supine to Sit Supine to Sit Independent Sit to Supine Sit to Supine Independent Scooting Scooting to Edge of Bed Independent Scooting Up and Down in Bed Independent PT-Transfer Assessment Sit to and From Stand Sit to and from Stand Independent Equipment Transfer Assistive Device None Transfers Transfer Destination Bed Transfer Technique Stand Pivot Transfer Ability Level of Assist Independent Gait Assessment Gait Gait Assistance Required: Independent Distance (Feet) 250 Assistive Devices Assistive Device None,Front Wheeled Walker Gait Deviations General Gait Pattern Within Normal Limits Comments Gait Comments Pt ambulated ~125 with FWW and modif I. Second loop of ~125' without a.d. and close supervision but no difficulty noted. Normal gait pattern. PT-Balance Assessment Sitting Balance and Reactions Static Sitting Balance Ability Normal Dynamic Sitting Balance Ability Normal Standing Balance and Reactions Static Standing Balance Ability Normal Dynamic Standing Balance Ability Normal Comments Other Balance Tests/Deviations/Treatment Tinetti: 26/28 : M5 PT-IP Objective Assessments Start: 09/28/21 11:42 Freq: Status: Active Protocol: Document 09/28/21 11:43 BC (Rec: 09/28/21 11:51 [id number]) Orientation Orientation/Cognition Level of Alertness Alert Orientation Name,Age,Birthday,Month,Date, Year,Day of Week,Place, Situation Safety Awareness Understands Safety Issues Memory Description No Deficits Noted Gross Range of Motion Upper Extremity ROM Assessment Within Functional Limits Lower Extremity ROM Assessment Within Functional Limits Strength Upper Extremity Strength Assessment Within Functional Limits Lower Extremity Strength Assessment Within Functional Limits Coordination Assessment Gross Coordination Gross Coordination WNL Sensation Assessment Sensation Gross Sensation WNL M6 PT-IP Treatment Start: 09/28/21 11:42 Freq: Status: Active Protocol: Document 09/28/21 11:43 BC (Rec: 09/28/21 11:51 [id number]) Physical Therapy Treatment Education Education Provided Safety M7 PT-IP Assessment and Plan Start: 09/28/21 11:42 Freq: Status: Active Protocol: Document 09/28/21 11:43 BC (Rec: 09/28/21 11:51 [id number]) PT Summary Assessment and Plan Potential Rehabilitation Potential Excellent Status of Condition at Evaluation Stable Summary Progress Towards Goals Safe For Discharge Assessment Summary Pt admitted due to SOB. Diagnosed with rhinovirus and PNA. Pt lives with spouse on [address]. Her PLOF is fully independent. She walks regularly for exercise. Currently she is demonstrating modif I to Ind level of all needed mobility for d/c home. She is stable on room air with 250' of ambulation ~94%. She is self selecting to use FWW when she first gets home until she feels stronger. She is able to demonstrate today safe ambulation with and without FWW. At this time d/c from IPPT and recommend d/c home. Frequency of Treatment Frequency Of Treatment Discharge Discharge Recommendations PT Discharge Recommendations Home,Home with Assistance Other Discharge Recommendations We reviewed HHPT/OPPT of which Pt is not interested in either. At this time I do not believe this is a necessity either. Transportation Needs at Discharge Private Vehicle
--- NOTE | 2021-09-28 11:59 | P.PN_ITS ---
Subjective Subjective Date Patient Seen: 09/27/21 Time Patient Seen: 13:00 Interval history: Patient feeling much better today. She is on room air but still feeling short of breath and having significant cough. She has not been out of bed much. She has been tolerating p.o. without difficulty. She denies any chest pain. Exam Vital Signs (past 8 hours): - 09/28/21 07:33 09/28/21 09:10 Pulse Rate 77 Respiratory Rate 18 Blood Pressure 136/82 Pulse Oximetry 95 94 Oxygen Delivery Method Room Air Oxygen Flow Rate 0 Narrative Exam Narrative: Patient is afebrile with O2 sats in the 93-96% on room air. Vital signs are stable. Patient is alert and oriented x3. She appears younger than stated age of 85. No increased work of breathing. No nasal flaring or intercostal retractions HEENT shows boggy nasal mucosa. Oropharynx is unremarkable Neck: Supple Chest: Diffuse expiratory wheezes and rhonchi no egophony. Cor: Regular rate and rhythm without murmur Abdomen: Positive bowel sounds, soft, nontender, no hepatosplenomegaly Extremities: No edema pulses intact Objective Labs Result Diagrams: 09/28/21 04:55 09/28/21 04:55 Labs: Laboratory Results - last 24 hr 09/28/21 09/28/21 04:55 04:55 WBC 6.8 RBC 4.61 Hgb 13.2 Hct 40.2 MCV 87.1 MCH 28.5 MCHC 32.8 RDW 13.6 Plt Count 270 Neut % (Auto) 87.9 H Lymph % (Auto) 9.6 L [place] % (Auto) 2.2 L Eos % (Auto) 0.0 L Baso % (Auto) 0.3 Neut # (Auto) 6000 Lymph # (Auto) 700 L [place] # (Auto) 100 Eos # (Auto) 0 Baso # (Auto) 0 Sodium 140 Potassium 4.5 Chloride 102 Carbon Dioxide 30 BUN 17 Creatinine 0.73 Estimated GFR > 60 BUN/Creatinine Ratio 23.3 H Glucose 203 H Calcium 9.4 PFSH Medical History Allergy (Unknown) Anxiety (Unknown) Arthritis (Unknown) Carpal tunnel syndrome (2014) Cataracts, bilateral (Unknown) Depression (Unknown) Fecal incontinence (10/2016) Foot pain (Unknown) Fractures (Unknown) HTN (hypertension) Low back pain (Unknown) Peripheral neuropathy (Unknown) Surgical History H/O bladder repair surgery (Unknown) Status post hysterectomy Family History Father Heart disease Social History household members: spouse Smoking Status: Never smoker Assessment & Plan Assessment & Plan narrative: 85-year-old female with atypical pneumonia. Patient is clinically improving and is no longer on oxygen. Respiratory panel showed rhinovirus patient is on azithromycin and ceftriaxone and is improving. Due to significant wheezing and rhonchi we will continue with respiratory therapy and albuterol. We will add steroids. Discussed side effects with patient. Questions were answered. Likely home tomorrow on antibiotics although we do not have culture proved of bacterial infection. Assessment 2. Hypertension Plan: Continue to monitor. Assessment 3. Hyperlipidemia without acute issues Assessment number for depression stable on current medication Time spent with patient was 40 minutes reviewing her chart meeting with patient discussing with nursing and formulating a plan of care. Time Spent With Patient Critical Care time: I spent a total of [] minutes of critical care time on this patient's care today; this time is exclusive of procedural time. Quality VTE Deep Vein Thrombosis/Pulmonary Embolism Present on Admission: No
[2021-09-28 12:10] VITALS: BP 140/67; PULSE 87; RESP 18; O2SAT 93
--- NOTE | 2021-09-28 12:25 | P.DS_ITS ---
History of Present Illness History of Present Illness Date Patient Seen: 09/28/21 Time Patient Seen: 12:26 Chief complaint: SOB Narrative: Patient is feeling much better today. She is anxious to go home. She is able to move about the room without any difficulty or significant shortness of breath. She is still coughing still having audible wheezing but overall is feeling much better with the steroids. Patient denies any chest pain. Denies any problems with her bowel movements. Is tolerating p.o. without difficulty. Has been stable on room air for over 24 hours. Discharge Providers Provider Date of admission: 09/26/21 00:39 Discharge Date: 09/28/21 Primary care physician: Tanesha Anderson MD Consults: 09/26/21 00:20 Consult to Physician Urgent Comment: Consulting Provider: Jean Carlos Ornelas Reason for consultation: admission Has provider been notified: Yes 09/26/21 09:04 Consult to Respiratory Therapy Evaluate & Treat Comment: Physician Instructions: Evaluate and treat 09/27/21 13:41 Consult to Physical Therapy Evaluate & Treat Comment: Physician Instructions: Evaluate and Treat Discharge provider: Gabi Marrero MD Summary Hospital Course Discharge Diagnosis: Acute respiratory failure with leukocytosis and hypoxemia on admission. Suspect atypical pneumonia unclear if viral or secondary bacterial but improving with antibiotics and steroids. Hypertension Hyperglycemia but fairly normal hemoglobin A1c Peripheral neuropathy Depression Cardiac murmur, systolic Hospital Course: Patient was admitted to the hospital placed on oxygen and given IV azithromycin and ceftriaxone. She had continued improvement and was off oxygen within 24 hours of admission. She maintains stable on room air for greater than 24 hours prior to discharge. Rhino virus was positive. Due to leukocytosis with left shift there was concern for secondary bacterial infection. Patient was discharged home on hospital day 3. In improved condition on p.o. azithromycin, prednisone, Ceftin 500 mg twice daily. She will have 4 more days of azithromycin and 7 more days of the Ceftin and prednisone until . She has appointment to follow-up with her primary care provider, Dr. Anderson on . Status at Discharge Cognitive/behavioral status at discharge: oriented Functional status at discharge: independent ambulation Overall status at discharge: patient is progressing back to baseline Exam Vital Signs (past 8 hours): - 09/28/21 07:33 09/28/21 09:10 09/28/21 12:10 Pulse Rate 77 87 Respiratory Rate 18 18 Blood Pressure 136/82 140/67 Pulse Oximetry 95 94 93 Oxygen Delivery Method Room Air Oxygen Flow Rate 0 Narrative Exam Narrative: Patient is alert and oriented x3 in no apparent distress. She appears much younger than stated health and no evidence of increased work of breathing. Neck: Supple Chest: Shows improved wheezing still with significant rhonchi but no a cough any and equal breath sounds throughout and better air exchange today Cor: Regular rate and rhythm with 3/6 systolic ejection murmur heard loudest at the left upper sternal border. Lung sounds are less noisy today so this is more prominent today. Abdomen: Positive bowel sounds, soft Extremities: No edema, pulses intact Neurologic exam nonfocal Objective Labs Result Diagrams: 09/28/21 04:55 09/28/21 04:55 Labs: Laboratory Results - last 24 hr 09/28/21 09/28/21 04:55 04:55 WBC 6.8 RBC 4.61 Hgb 13.2 Hct 40.2 MCV 87.1 MCH 28.5 MCHC 32.8 RDW 13.6 Plt Count 270 Neut % (Auto) 87.9 H Lymph % (Auto) 9.6 L [place] % (Auto) 2.2 L Eos % (Auto) 0.0 L Baso % (Auto) 0.3 Neut # (Auto) 6000 Lymph # (Auto) 700 L [place] # (Auto) 100 Eos # (Auto) 0 Baso # (Auto) 0 Sodium 140 Potassium 4.5 Chloride 102 Carbon Dioxide 30 BUN 17 Creatinine 0.73 Estimated GFR > 60 BUN/Creatinine Ratio 23.3 H Glucose 203 H Calcium 9.4 PFSH Medical History Allergy (Unknown) Anxiety (Unknown) Arthritis (Unknown) Carpal tunnel syndrome (2014) Cataracts, bilateral (Unknown) Depression (Unknown) Fecal incontinence (10/2016) Foot pain (Unknown) Fractures (Unknown) HTN (hypertension) Low back pain (Unknown) Peripheral neuropathy (Unknown) Surgical History H/O bladder repair surgery (Unknown) Status post hysterectomy Family History Father Heart disease Social History household members: spouse Smoking Status: Never smoker Discharge Assessment & Plan Assessment and Plan Assessment: Acute respiratory failure with leukocytosis and hypoxemia on admission. Suspect atypical pneumonia unclear if viral or secondary bacterial but improving with antibiotics and steroids. Hypertension Hyperglycemia but fairly normal hemoglobin A1c Peripheral neuropathy Depression Cardiac murmur, systolic Plan of Treatment: Discharge to home with in stable and improved condition on room air Follow-up with Dr. Quinones on , appointment has already been made. Continue outpatient medications. New medications are azithromycin 250 mg daily for 4 days; Ceftin 500 mg twice daily for 7 days; prednisone 40 mg daily for 2 days then 20 mg daily for 4 days then stop Albuterol as needed Discharge Plan Discharge Plan Patient Disposition: Home Discharge orders & Medications Prescriptions: New azithromycin [Zithromax] 250 mg tablet 250 mg PO DAILY 4 Days 0RF Rx Instructions: start on day 2 of therapy prednisone 20 mg tablet 40 mg PO DAILY Qty: 8 0RF Rx Instructions: take 2 tabs daily for 2 days with food and then 1 tablet daily for 4 days cefuroxime axetil 500 mg tablet 500 mg PO BID Qty: 14 0RF albuterol sulfate [ProAir HFA] 90 mcg/actuation HFA aerosol inhaler 2 puff inhalation Q6H PRN (Reason: shortness of breath or wheezing) Qty: 8.5 0RF azithromycin 250 mg tablet 250 mg PO DAILY 4 Days 0RF Rx Instructions: start on day 2 of therapy Continued fluticasone propionate 16 GM spray,suspension 1 spray Intranasal QAM PRN (Reason: Nasal Congestion) Qty: 0 0RF escitalopram oxalate 20 mg tablet 20 mg PO DAILY PRN (Reason: Allergy Symptoms) 0RF Label Comments: TK 1 T PO D FOR DEPRESSION OR ANXIETY Vitamin D3 2 cap PO QWEEK 0RF Label Comments: thursday Rx Instructions: takes 2 tabs on Sundays lisinopril 10 mg tablet 10 mg PO DAILY 0RF pregabalin 75 mg capsule 75 mg PO DAILY 0RF Rx Instructions: 1 tablet in am and 2 tablets in the evening rosuvastatin 5 mg tablet 5 mg PO BEDTIME 0RF Follow up/Referrals: Tanesha Anderson MD [Primary Care Provider] - Gabi Marrero MD [Physician] - Discharge Health Status Multidrug resistant organism: No MDRO Diet/Activity/Treatments Diet: Diet as Tolerated Discharge Data Primary Care Provider: Tanesha Anderson VTE Deep Vein Thrombosis/Pulmonary Embolism Present on Admission: No
--- NOTE | 2021-09-28 12:50 | PC.NURSE ---
IV dc'd with cath intact. Dr. Marrero notified pt experiencing diarrhea and educated pt on taking probiotics.
== END 2021-09-28 13:11 | disposition home or self-care (01) | DRG 193 ==
LOC: ED 09-26 00:16 → AC 09-26 00:40
PROVIDERS: Family Medicine; Admitting Provider Family Medicine; Emergency Provider Emergency Medicine; PCP Student in an Organized Health Care Education/Training Program; Referring Provider Emergency Medicine; Visit Provider Family Medicine
DX: J18.9 Pneumonia, unspecified organism (principal); J96.01 Acute respiratory failure with hypoxia; J15.9 Unspecified bacterial pneumonia; E86.0 Dehydration; B34.8 Other viral infections of unspecified site; F32.A Depression, unspecified; G62.9 Polyneuropathy, unspecified; I10 Essential (primary) hypertension; R73.9 Hyperglycemia, unspecified; E78.5 Hyperlipidemia, unspecified; Z20.822 Contact with and (suspected) exposure to COVID-19
CPT/HCPCS: 36415; 71045; 71046; 80048; 80053; 82550; 82553; 83036; 83690; 83880; 84145; 84484; 85025; 87040; 87633; 93005; 93010; 94640; 94760; 94762; 96365; 96367; 96375; 97161; 97530; 99284; 99285; J0696; J1650; J1940; J2930; J7613

== ENCOUNTER → 2021-12-02 13:41 | Outpatient (CLI) | payer OTHER, SELFPAY ==
[2021-09-26 01:52] VITALS: BMI 36.1
--- NOTE | 2021-12-02 | DI.NM.S_ITS ---
PROCEDURE: NM YUSUF PERF SPECT R&S PHARM Rest and pharmacological stress myocardial perfusion SPECT with gated imaging and ejection fraction RADIOPHARMACEUTICAL: 25.3 mCi Tc-99m tetrafosmin IV at rest and 25 mCi Tc-99m tetrafosmin IV at peak effect of pharmacological stress. Gab-eki-[id number] was performed. INDICATIONS: Dyspnea TECHNIQUE: Radiopharmaceutical was injected at peak stress test, and also at rest. SPECT images were obtained. SPECT myocardial perfusion images were displayed in short axis, horizontal long axis, and vertical long axis views. Gated images were reviewed using Source[employer] software. COMPARISON: None. CARDIAC STRESS: A pharmacologic stress test was performed under the supervision of an attending staff, using an infusion of regadenoson. Hemodynamic data: There is normal blood pressure and heart rate response to pharmacologic stress. Symptoms: The patient denied anginal chest pain. EKG: No diagnostic changes of ischemia; no ectopy. FINDINGS: Raw data: There is good myocardial uptake of radiotracer. No significant motion artifacts. Mxts-we-agbxf ratio is 0.50 (normal is less than 0.38 for tetrafosmin tracer). Left ventricle function: Gated images demonstrate normal left ventricular wall thickening. No segmental wall motion abnormalities. No transient ischemic dilation; TID is 1.21 (normal less than 1.3). Left ventricle resting end diastolic volume is 70 mL. Left ventricle stress ejection fraction is >75%; normal range is above 45%. Myocardial perfusion: There is normal distribution of activity in the right and left ventricular myocardium. No fixed or reversible perfusion defects. IMPRESSION: No evidence of pharmacologic induced ischemia or scar. Hyperdynamic left ventricular function. Dictated by: Kerry Khoury D.O. on 12/03/2021 at 17:09 Approved by: Kerry Khoury D.O. on 12/03/2021 at 17:11
[2021-12-02 14:54] LABS: COVID19 -Nasal RAPID Negative (Negative)
== END ==
PROVIDERS: PCP Student in an Organized Health Care Education/Training Program; Referring Provider Student in an Organized Health Care Education/Training Program; Visit Provider Student in an Organized Health Care Education/Training Program
DX: R06.00 Dyspnea, unspecified; Z20.822 Contact with and (suspected) exposure to COVID-19
CPT/HCPCS: 78452; 87635; 93017; A9502; J2785

== ENCOUNTER → 2021-12-10 10:22 | Outpatient (CLI) | payer OTHER, SELFPAY ==
[2021-09-26 01:52] VITALS: BMI 36.1
== END ==
PROVIDERS: PCP Student in an Organized Health Care Education/Training Program; Referring Provider Student in an Organized Health Care Education/Training Program; Visit Provider Student in an Organized Health Care Education/Training Program
DX: M85.851 Other specified disorders of bone density and structure, right thigh (principal)
CPT/HCPCS: 77080

== ENCOUNTER → 2022-02-20 14:13 | Outpatient (CLI) | payer OTHER, SELFPAY ==
[2021-09-26 01:52] VITALS: BMI 36.1
--- NOTE | 2022-02-20 14:15 | DI.RAD.S_ITS ---
PROCEDURE: XR CHEST 2V INDICATIONS: R06.02 TECHNIQUE: 2 views of the chest were acquired. COMPARISON: [facility], , XR CHEST 2V, 09/27/2021, 8:40. FINDINGS: Surgical changes and devices: None. Lungs and pleura: Lungs are clear. No pleural effusions or pneumothorax. Mediastinum: Mediastinal contours are normal. Heart size is enlarged. Bones and chest wall: No suspicious bony abnormalities. Soft tissues appear unremarkable. IMPRESSION: No acute pulmonary process. Dictated by: Silvana Pitts M.D. on 02/20/2022 at 16:13 Approved by: Silvana Pitts M.D. on 02/20/2022 at 16:13
== END ==
PROVIDERS: PCP Family Medicine; Referring Provider Family Medicine; Visit Provider Family Medicine
DX: R06.02 Shortness of breath (principal)
CPT/HCPCS: 71046

== ENCOUNTER → 2022-10-14 11:57 | Outpatient (CLI) | payer OTHER, SELFPAY ==
[2021-09-26 01:52] VITALS: BMI 36.1
--- NOTE | 2022-10-14 12:00 | DI.ECHO.S_ITS ---
[facility] +---------+ : : [address] [place] : : : : [id number] : : : : Phone: [phone]+ Echocardiogram Report + + :Name: REMINGTON FARRIS Study Date: 10/14/2022 Height: 61.5 in: :[facility] ReadingLocation: Weight: 187 lb : : Gender: Female BSA: 1.8 m2 : :: 1935 Age: 86 yrs BP: 115/67 mmHg: :Reason For Study: AORTIC STENOSIS : :Ordering Physician: JOSE, : :CAMILO Performed By: Britney Ring : :Referring: STEVE MAURO : + + Interpretation Summary 1) Normal left ventricular size, wall motion, and systolic function (EF 60- 65%). 2) Mildy increased right ventricular size with low normal function. 3) There is probable severe aortic stenosis (valve area 0.8cm2, mean gradient 27mmHg, severity ratio 0.23). Gradient lower than expected for severe aortic stenosis. 4) There is moderate to severe tricuspid regurgitation. 5) There is mild to moderate mitral regurgitation. 6) The right ventricular systolic pressure is estimated to be at least 45 mmHg based on an estimated right atrial pressure of 8 mm Hg. 7) Compared to the Echo done 09/16/2021, aortic stenosis has progressed from moderate to severe on this study. Procedure: A two-dimensional transthoracic echocardiogram with color flow and Doppler was performed. The study quality was technically adequate. Comparison is made with the echocardiogram of 09/16/2021. The patient was in atrial fibrillation with heart rates between 51-65 bpm during the exam. Left Ventricle: The left ventricle is normal in size and wall thickness. The ejection fraction is estimated to be 60-65%. Diastolic parameters suggest a pseudonormalization pattern, consistent with probable elevated filling pressures. Right Ventricle: The right ventricle is mildly dilated. Right ventricular systolic function is at the lower limits of normal. Atria: The left atrium is mildly dilated. The right atrium is mildly dilated. There is no Doppler evidence for an interatrial shunt. Mitral Valve: There is mild to moderate mitral annular calcification. The mitral valve leaflets appear to open well. There is mild to moderate mitral regurgitation. Aortic Valve: The aortic valve is severely calcified. There is severely reduced leaflet mobility. The peak aortic velocity is 3.3 m/sec. The aortic valve mean gradient is 27 mmHg. The calculated aortic valve area is 0.81 cm2. There is severe aortic stenosis. There is mild aortic regurgitation. Tricuspid Valve: The tricuspid valve leaflets are thin and pliable. There is moderate to severe tricuspid regurgitation. The right ventricular systolic pressure is estimated to be at least 45 mmHg based on an estimated right atrial pressure of 8 mm Hg. Pulmonic Valve: The pulmonic valve is not well visualized. There is trace pulmonic regurgitation. Great Vessels: The aortic root is normal size. The ascending aorta is at the upper limits of normal in size. The IVC is dilated (diameter is greater than 2.1 cm) yet it collapses greater than 50% with a sniff. This suggests a right atrial pressure of 8 mm Hg. Pericardium/ Pleura There is no pericardial effusion. There is no pleural effusion. MMode/2D Measurements & Calculations LVIDd: 4.2 cm LVOT diam: 2.1 cm LVIDs: 2.8 cm Ao root diam: 3.0 cm FS: 33.7 % asc Aorta Diam: 3.7 cm IVSd: 0.79 cm Ao Arch Diam (Prox Trans): 3.0 cm LVPWd: 0.85 cm LV bower. diameter/BSA (cm/m^2): 2.3 LV sys. diameter/BSA (cm/m^2): 1.5 LA A2 area: 23.0 cm2 RA long axis: 6.1 cm LA A4 area: 22.6 cm2 RA area: 22.9 cm2 LA length (vol): 6.5 cm RA vol: 73.4 ml LA vol: 68.1 ml RA : 39.7 ml/m2 LA vol index: 36.8 ml/m2 IVC diam: 3.2 cm RVD1 (basal): 4.9 cm RVD2 (mid): 4.2 cm TAPSE: 1.7 cm Doppler Measurements & Calculations Ao V2 max: 332.6 cm/sec LVOT Max Rogerio: 78.1 cm/sec Ao V2 mean: 238.3 cm/sec LV V1 max P.4 mmHg Ao max P.3 mmHg LV V1 VTI: 18.3 cm Ao mean P.9 mmHg JOSEPH(I,D): 0.81 cm2 Ao V2 VTI: 78.5 cm JOSEPH(V,D): 0.81 cm2 sev ratio: 0.23 JOSEPH indexed to BSA (cm^2/m^2): 0.44 MV E max rogerio: 103.9 cm/sec TR max rogerio: 302.7 cm/sec MV A max rogerio: 2.1 cm/sec TR max P.6 mmHg MV E/A: 48.4 PA V2 max: 63.6 cm/sec Med Peak E' Rogerio: 6.3 cm/sec PA V2 mean: 43.1 cm/sec E/E' med: 16.4 PA mean P.86 mmHg Lat Peak E' Rogerio: 9.6 cm/sec PA pr(Accel): 36.2 mmHg E/E' lat: 10.9 E/e' average: 13.6 MV dec time: 0.21 sec SV(LVOT): 63.4 ml Reading Physician:08:56 AM
== END ==
PROVIDERS: PCP Family Medicine; Referring Provider Internal Medicine Cardiovascular Disease; Visit Provider Internal Medicine Cardiovascular Disease
DX: I08.3 Combined rheumatic disorders of mitral, aortic and tricuspid valves (principal)
CPT/HCPCS: 93306

== ENCOUNTER 2022-11-24 16:32 | Emergency (ER) | payer OTHER, SELFPAY ==
[2021-09-26 01:52] VITALS: BMI 36.1
[2022-11-24 16:37] VITALS: BP 160/68; PULSE 52; RESP 16; TEMP 36.4; O2SAT 94
--- NOTE | 2022-11-24 16:49 | PC.NURSE ---
Advised patient that given her desire to make 8pm ferry, and this RNs recommendation for a full work up, patient declined work up and wanted to go home given census status of ED. Educated patient to follow up with Dr Marrero. Patient here today because of a sudden onset headache that lasted 5 minutes, on Thursday, with nausea that has been intermittent and a pinching chest pain that has gone on per spouse for several months.
== END 2022-11-24 16:51 | disposition left against medical advice (07) ==
PROVIDERS: Emergency Provider Emergency Medicine; PCP Family Medicine
CPT/HCPCS: 99281

== ENCOUNTER 2022-11-25 10:02 | Emergency (ER) | payer OTHER, SELFPAY ==
[2021-09-26 01:52] VITALS: BMI 36.1
[2022-11-25 10:04] VITALS: BP 154/71; PULSE 64; RESP 14; TEMP 36.3; O2SAT 96; BMI 36.2
--- NOTE | 2022-11-25 10:10 | DI.RAD.S_ITS ---
PROCEDURE: XR CHEST 1V INDICATIONS: chest pain TECHNIQUE: One view of the chest was acquired. COMPARISON: [facility], CR, XR CHEST 2V, 02/20/2022, 14:42. FINDINGS: Surgical changes and devices: None. Lungs and pleura: Mild bilateral interstitial prominence. No focal consolidation. No pleural effusion or pneumothorax. Mediastinum: Cardiac silhouette is enlarged. Bones and chest wall: No suspicious bony lesions. Overlying soft tissues appear unremarkable. IMPRESSION: Cardiomegaly and mild bilateral insertional prominent suspicious for mild pulmonary edema. Approved by: Lamonte Hester M.D. on 11/25/2022 at 10:52
[2022-11-25 11:02] LABS: Add Manual Diff / Slide Review NO; Basophils Absolute Auto 100 /uL (0-100); Basophils Percent Auto 0.7 % (0-2); Eosinophils Absolute Auto 100 /uL (0-450); Eosinophils Percent Auto 1.7 % (2-4); Hematocrit 41.4 % (36-46); Lymphocytes Absolute Auto 2300 /uL (1100-4500); Lymphocytes Percent Auto 33.5 % (25-40); Mean Corpuscular HGB Conc 33.9 % (30-36); Mean Corpuscular Hemoglobin 30.4 PG (26-34); Mean Corpuscular Volume 89.5 fL (80-100); Monocytes Absolute Auto 600 /uL (0-900); Monocytes Percent Auto 9.2 % (3-14); Neutrophils Absolute Auto 3800 /uL (1500-7000); Neutrophils Percent Auto 54.9 % (50-75); Platelet Count 216 X10^3/uL (150-400); Red Blood Cell Count 4.63 X10^6/uL (4.0-5.2); Red Cell Distribution Width 13.1 % (11.6-14.8); White Blood Cell Count 6.9 X10^3/uL (4.5-11.0)
[2022-11-25 11:03] LABS: INR 1.8 (0.9-1.3); Prothrombin Time 21.3 SECONDS (10.1-12.7)
[2022-11-25 11:06] LABS: PTT Partial Thromboplastin Tim 35 SECONDS (26-36)
[2022-11-25 11:09] LABS: Alanine Aminotransferase 28 IU/L (<35); Albumin 4.1 g/dL (3.5-5.0); Albumin Globulin Ratio 1.2 (1.0-2.8); Alkaline Phosphatase 74 U/L (38-126); Aspartate Aminotransferase 33 IU/L (14-36); Bilirubin Total 0.9 mg/dL (0.2-1.3); Blood Urea Nitrogen 15 mg/dL (7-17); Carbon Dioxide 28 mmol/L (22-32); Chloride 103 mmol/L (98-107); Creatine Kinase 46 U/L (30-135); Estimated Glomerular Filt Rate > 60 mL/min (>60); Globulin 3.3 g/dL (1.7-4.1); Glucose 152 mg/dL (80-110); HEMOLYSIS < 15 (0-50); Lipase 43 U/L (23-300); Magnesium 1.9 mg/dL (1.6-2.3); Potassium 4.2 mmol/L (3.4-5.1); Sodium 137 mmol/L (137-145); Total Protein 7.4 g/dL (6.3-8.2)
[2022-11-25 11:20] LABS: Troponin I < 0.012 ng/mL (0.01-0.034)
[2022-11-25 12:20] VITALS: BP 118/58; PULSE 53; RESP 18; TEMP 36.1; O2SAT 97
--- NOTE | 2022-11-25 12:30 | ED.GENADULT ---
HPI - General Adult <Casie Yeh PA-C - Last Filed: 11/25/22 12:38> General Chief complaint: Hypertension Stated complaint: high B/P Time Seen by Provider: 11/25/22 12:07 Source: patient Mode of arrival: Ambulatory History of Present Illness HPI narrative: 87-year-old female with past medical history hypertension, depression, AFib presents to the ED with 4 days of high blood pressure readings. Patient states that she experienced a headache 4 days ago, after which her blood pressure readings were elevated for the next day or 2. In the ED, patient's blood pressure was 118/58. Patient is on blood thinners for the AFib. Patient denies chest pain, shortness of breath, headache, abdominal pain, lightheadedness, dizziness, syncope. Related Data Home Medications Medication Instructions Recorded Confirmed fluticasone propionate 50 1 spray intranasal QAM PRN Nasal 09/02/17 09/26/21 mcg/actuation nasal Congestion ##0 spray,suspension Vitamin D3 2 cap PO QWEEK 08/20/18 09/26/21 escitalopram oxalate 20 mg tablet 20 mg PO DAILY PRN Allergy Symptoms 08/20/18 09/26/21 lisinopril 10 mg tablet 10 mg PO DAILY hypertension 09/26/21 09/26/21 pregabalin 75 mg capsule 75 mg PO DAILY chronic pain 09/26/21 09/26/21 rosuvastatin 5 mg tablet 5 mg PO BEDTIME 09/26/21 09/26/21 Previous Rx's Medication Instructions Recorded albuterol sulfate 90 mcg/actuation 2 puff inhalation Q6H PRN 09/28/21 aerosol inhaler (ProAir HFA) shortness of breath or wheezing #8.5 grams cefuroxime axetil 500 mg tablet 500 mg PO BID #14 tabs 09/28/21 prednisone 20 mg tablet 40 mg PO DAILY #8 tabs 09/28/21 Allergies Allergy/AdvReac Type Severity Reaction Status Date / Time bupropion Allergy Mild ITCHING Verified 11/25/22 10:04 Review of Systems <Casie Yeh PA-C - Last Filed: 11/25/22 12:38> Review of Systems Narrative: High blood pressure reading ROS Unobtainable: All systems reviewed & are unremarkable except as noted in HPI and below Constitutional Constitutional: Denies chills, Denies fatigue, Denies fever(s), Denies frequent falls, Denies lethargy and Denies weakness Eyes Eyes: Denies change in vision, Denies eye discharge, Denies irritation and Denies loss of vision ENT Ears, Nose, Mouth, and Throat: Denies change in voice, Denies dizziness, Denies neck pain, Denies sore throat and Denies throat swelling Cardiovascular Cardiovascular: Denies chest pain, Denies irregular heart rhythm, Denies lightheadedness, Denies palpitations, Denies dyspnea, Denies dyspnea on exertion and Denies orthopnea Respiratory Respiratory: Denies cough, Denies dyspnea, Denies dyspnea on exertion and Denies wheezing Gastrointestinal Gastrointestinal: Denies abdominal pain, Denies change in bowel habits, Denies diarrhea, Denies nausea and Denies vomiting Genitourinary Genitourinary: Denies hematuria, Denies flank pain, Denies urinary incontinence and Denies urinary urgency Musculoskeletal Musculoskeletal: Denies back pain, Denies muscle weakness, Denies neck pain, Denies numbness and Denies tingling Integumentary/Breasts Skin/Breast: Denies pruritus, Denies erythema, Denies rash and Denies wounds Neurologic Neurologic: Denies behavioral changes, Denies confusion, Denies dizziness, Denies frequent falls, Denies loss of vision, Denies numbness, Denies tingling and Denies weakness Psychiatric Psychiatric: Denies anxiety, Denies behavioral changes, Denies confusion, Denies depression, Denies homicidal ideation and Denies suicidal ideation Endocrine Endocrine: Denies fatigue, Denies flushing and Denies palpitations Hematologic/Lymphatic Hematologic/Lymphatic: Denies easy bruising Allergic/Immunologic Allergic/Immunologic: Denies urticaria, Denies throat swelling and Denies wheezing Patient History <Casie Yeh PA-C - Last Filed: 11/25/22 12:38> Medical History (Updated 11/25/22 @ 12:29 by Casie Yeh PA-C) Allergy (Unknown) Anxiety (Unknown) Arthritis (Unknown) Carpal tunnel syndrome (2014) Cataracts, bilateral (Unknown) Depression (Unknown) Fecal incontinence (10/2016) Foot pain (Unknown) Fractures (Unknown) HTN (hypertension) Low back pain (Unknown) Peripheral neuropathy (Unknown) Surgical History H/O bladder repair surgery (Unknown) Status post hysterectomy Family History Father Heart disease Social History household members: spouse Smoking Status: Never smoker Smoking Status: Never smoker alcohol intake frequency: holidays/special occasions only Substance Use Type: does not use Exam <Casie Yeh PA-C - Last Filed: 11/25/22 12:38> Narrative Exam Narrative: Const General:?cooperative, healthy appearing and comfortable [facility] Head:?normal to inspection Ears:?hearing grossly normal bilaterally Nose:?external nose normal Face and sinus:?normal facial exam and sinuses nontender Mouth:?oral mucosae normal Throat:?posterior oropharynx normal Eyes General:?appearance normal, both eyes and all related structures Neck Neck:?normal visual inspection and no lymphadenopathy noted Resp Effort & Inspection:?normal respiratory effort Auscultation:?clear to auscultation bilaterally Cardio Rate:?regular rate Rhythm:?regular rhythm Neuro General:?patient alert, patient awake and patient oriented x3 Initial Vital Signs Initial Vital Signs: Vital Signs Temperature 97.3 F L 11/25/22 10:04 Pulse Rate 64 11/25/22 10:04 Respiratory Rate 14 11/25/22 10:04 Blood Pressure 154/71 H 11/25/22 10:04 Pulse Oximetry 96 11/25/22 10:04 Oxygen Delivery Method Room Air 11/25/22 10:04 <Kimberley Sauer DO - Last Filed: 11/25/22 20:52> Initial Vital Signs Initial Vital Signs: Vital Signs Temperature 97.3 F L 11/25/22 10:04 Pulse Rate 64 11/25/22 10:04 Respiratory Rate 14 11/25/22 10:04 Blood Pressure 154/71 H 11/25/22 10:04 Pulse Oximetry 96 11/25/22 10:04 Oxygen Delivery Method Room Air 11/25/22 10:04 Course <Casie Yeh PA-C - Last Filed: 11/25/22 12:38> Orders Ordered: ED Orders 11/25/22 10:10 XR chest 1V Stat 11/25/22 10:16 Complete Blood Count AUTO DIFF Stat Comprehensive Metabolic Panel Stat Lipase Stat Magnesium Stat PTT Partial Thromboplastin Sumit Stat Prothrombin Time INR Stat Troponin & CK Cardiac Panel Stat 11/25/22 10:33 EKG-12 Lead Stat Vital Signs Vital signs: Vital Signs - 8 hr 11/25/22 10:04 11/25/22 12:20 Temperature 97.3 F L 97 F L Pulse Rate 64 53 L Respiratory Rate 14 18 Blood Pressure 154/71 H 118/58 L Pulse Oximetry 96 97 Oxygen Delivery Method Room Air Room Air <Kimberley Sauer DO - Last Filed: 11/25/22 20:52> Orders Ordered: ED Orders 11/25/22 10:10 XR chest 1V Stat 11/25/22 10:16 Complete Blood Count AUTO DIFF Stat Comprehensive Metabolic Panel Stat Lipase Stat Magnesium Stat PTT Partial Thromboplastin Sumit Stat Prothrombin Time INR Stat Troponin & CK Cardiac Panel Stat 11/25/22 10:33 EKG-12 Lead Stat Vital Signs Vital signs: Vital Signs - 8 hr 11/25/22 10:04 11/25/22 12:20 Temperature 97.3 F L 97 F L Pulse Rate 64 53 L Respiratory Rate 14 18 Blood Pressure 154/71 H 118/58 L Pulse Oximetry 96 97 Oxygen Delivery Method Room Air Room Air Medical Decision Making <Casie Yeh PA-C - Last Filed: 11/25/22 12:38> Lab Data 11/25/22 10:16 11/25/22 10:16 Labs: Lab Results 11/25/22 11/25/22 11/25/22 Range/Units 10:16 10:16 10:16 WBC 6.9 (4.5-11.0) X10^3/uL RBC 4.63 (4.0-5.2) X10^6/uL Hgb 14.0 (12.0-16.0) g/dL Hct 41.4 (36-46) % MCV 89.5 (80-100) fL MCH 30.4 (26-34) PG MCHC 33.9 (30-36) % RDW 13.1 (11.6-14.8) % Plt Count 216 (150-400) X10^3/uL Neut % (Auto) 54.9 (50-75) % Lymph % (Auto) 33.5 (25-40) % Chilton % (Auto) 9.2 (3-14) % Eos % (Auto) 1.7 L (2-4) % Baso % (Auto) 0.7 (0-2) % Neut # (Auto) 3800 (4416-9400) /uL Lymph # (Auto) 2300 (5965-0645) /uL Chilton # (Auto) 600 (0-900) /uL Eos # (Auto) 100 (0-450) /uL Baso # (Auto) 100 (0-100) /uL PT 21.3 H (10.1-12.7) SECONDS INR 1.8 H (0.9-1.3) APTT 35 (26-36) SECONDS Sodium 137 (137-145) mmol/L Potassium 4.2 (3.4-5.1) mmol/L Chloride 103 (98-107) mmol/L Carbon Dioxide 28 (22-32) mmol/L BUN 15 (7-17) mg/dL Creatinine 0.75 (0.52-1.04) mg/dL Estimated GFR > 60 (>60) mL/min BUN/Creatinine Ratio 20.0 (6-22) Glucose 152 H (80-110) mg/dL Calcium 9.0 (8.4-10.2) mg/dL Magnesium 1.9 (1.6-2.3) mg/dL Total Bilirubin 0.9 (0.2-1.3) mg/dL AST 33 (14-36) IU/L ALT 28 (<35) IU/L Alkaline Phosphatase 74 (38-126) U/L Total Creatine Kinase 46 (30-135) U/L CK-MB (CK-2) TNP CK-MB (CK-2) Rel Index TNP Troponin I < 0.012 (0.01-0.034) ng/mL Total Protein 7.4 (6.3-8.2) g/dL Albumin 4.1 (3.5-5.0) g/dL Globulin 3.3 (1.7-4.1) g/dL Albumin/Globulin Ratio 1.2 (1.0-2.8) Lipase 43 (23-300) U/L [facility] Narrative Medical decision making narrative: 87-year-old female with past medical history hypertension, depression, AFib presents to the ED with 4 days of high blood pressure readings. Workup without concern for hypertensive crisis. X-ray shows mild interstitial pulmonary edema, likely CHF related. EKG shows atrial fibrillation without RVR. Patient agrees to follow-up with Dr. Krueger her stereotyper. Patient also agrees to keep a blood pressure log for the next 2 weeks, follow-up with her PCP to re-evaluate for any medication adjustments. Discussed with patient that blood pressure is very through the day and can also be increased when you are in pain such as when you are experiencing a headache, or when you were under stress. ED return precautions were also discussed with patient. She verbalized understanding. Medical records reviewed: Yes <Kimberley Sauer, DO - Last Filed: 11/25/22 20:52> Lab Data Labs: Lab Results 11/25/22 11/25/22 11/25/22 Range/Units 10:16 10:16 10:16 WBC 6.9 (4.5-11.0) X10^3/uL RBC 4.63 (4.0-5.2) X10^6/uL Hgb 14.0 (12.0-16.0) g/dL Hct 41.4 (36-46) % MCV 89.5 (80-100) fL MCH 30.4 (26-34) PG MCHC 33.9 (30-36) % RDW 13.1 (11.6-14.8) % Plt Count 216 (150-400) X10^3/uL Neut % (Auto) 54.9 (50-75) % Lymph % (Auto) 33.5 (25-40) % Chilton % (Auto) 9.2 (3-14) % Eos % (Auto) 1.7 L (2-4) % Baso % (Auto) 0.7 (0-2) % Neut # (Auto) 3800 (3130-1271) /uL Lymph # (Auto) 2300 (4948-0447) /uL Chilton # (Auto) 600 (0-900) /uL Eos # (Auto) 100 (0-450) /uL Baso # (Auto) 100 (0-100) /uL PT 21.3 H (10.1-12.7) SECONDS INR 1.8 H (0.9-1.3) APTT 35 (26-36) SECONDS Sodium 137 (137-145) mmol/L Potassium 4.2 (3.4-5.1) mmol/L Chloride 103 (98-107) mmol/L Carbon Dioxide 28 (22-32) mmol/L BUN 15 (7-17) mg/dL Creatinine 0.75 (0.52-1.04) mg/dL Estimated GFR > 60 (>60) mL/min BUN/Creatinine Ratio 20.0 (6-22) Glucose 152 H (80-110) mg/dL Calcium 9.0 (8.4-10.2) mg/dL Magnesium 1.9 (1.6-2.3) mg/dL Total Bilirubin 0.9 (0.2-1.3) mg/dL AST 33 (14-36) IU/L ALT 28 (<35) IU/L Alkaline Phosphatase 74 (38-126) U/L Total Creatine Kinase 46 (30-135) U/L CK-MB (CK-2) TNP CK-MB (CK-2) Rel Index TNP Troponin I < 0.012 (0.01-0.034) ng/mL Total Protein 7.4 (6.3-8.2) g/dL Albumin 4.1 (3.5-5.0) g/dL Globulin 3.3 (1.7-4.1) g/dL Albumin/Globulin Ratio 1.2 (1.0-2.8) Lipase 43 (23-300) U/L ECG Data Interpretation: Camacho: Atrial fibrillation rate [address] changes similar previous EKGs Discharge Plan Departure Patient Disposition: Home Clinical Impression: High blood pressure Instructions: DI for High Blood Pressure Activity Restrictions/Additional Instructions: You were evaluated in the ED for some elevated blood pressure readings at home. Your workup today was normal including your EKG, chest x-ray, labs. Your blood pressure was normal in the ED at 118/58. It is possible that your headache on Thursday caused your blood pressure to be elevated for the next day or 2. Please keep a blood pressure diary at home for the next 2 weeks, follow-up with your PCP to evaluate if any changes to medications need to be made. Return to the ED if you experience any chest pain, shortness of breath. Prescriptions: No Action fluticasone propionate 16 GM spray,suspension 1 spray Intranasal QAM PRN (Reason: Nasal Congestion) Qty: 0 escitalopram oxalate 20 mg tablet 20 mg PO DAILY PRN (Reason: Allergy Symptoms) Patient Comments: TK 1 T PO D FOR DEPRESSION OR ANXIETY Vitamin D3 2 cap PO QWEEK Patient Comments: thursday Rx Instructions: takes 2 tabs on Sundays lisinopril 10 mg tablet 10 mg PO DAILY pregabalin 75 mg capsule 75 mg PO DAILY Rx Instructions: 1 tablet in am and 2 tablets in the evening rosuvastatin 5 mg tablet 5 mg PO BEDTIME prednisone 20 mg tablet 40 mg PO DAILY Qty: 8 0RF Rx Instructions: take 2 tabs daily for 2 days with food and then 1 tablet daily for 4 days cefuroxime axetil 500 mg tablet 500 mg PO BID Qty: 14 0RF albuterol sulfate [ProAir HFA] 90 mcg/actuation HFA aerosol inhaler 2 puff inhalation Q6H PRN (Reason: shortness of breath or wheezing) Qty: 8.5 0RF Referrals: Gabi Marrero MD [Primary Care Provider] - Stand Alone Forms: Patient Portal/API <Kimberley Sauer DO - Last Filed: 11/25/22 20:52> Cosign ED Attending Cosjerryature Attestation: I was immediately available in the department for consultation. Documentation has been reviewed.
== END 2022-11-25 12:33 | disposition home or self-care (01) ==
PROVIDERS: Emergency Medicine; Emergency Provider Student in an Organized Health Care Education/Training Program; PCP Family Medicine
DX: I10 Essential (primary) hypertension (principal); R07.9 Chest pain, unspecified
CPT/HCPCS: 36415; 71045; 80053; 82550; 83690; 83735; 84484; 85025; 85610; 85730; 93005; 99283; 99284

== ENCOUNTER → 2023-04-30 15:29 | Outpatient (CLI) | payer OTHER, SELFPAY ==
[2021-09-26 01:52] VITALS: BMI 36.1
--- NOTE | 2023-04-30 15:31 | DI.ECHO.S_ITS ---
[facility]---------+ [facility] +---------+ : : [address] [place] : : : : [id number] : : : : Phone: [phone]---------+ Echocardiogram Report + + :Name: REMINGTON FARRIS Study Date: 04/30/2023 Height: 62 in : :[facility] ReadingLocation: Weight: 192 lb : : Gender: Female BSA: 1.9 m2 : :: 1935 Age: 87 yrs BP: 180/90 mmHg: :Reason For Study: Aortic Valve Stenosis : :Ordering Physician: JOSE, : :CAMILO Performed By: Adelaide Anaya : :Referring: CAMILO PERDOMO : + + Interpretation Summary 1) Normal left ventricular size, wall motion, and systolic function (EF 60- 65%). 2) Mildy to moderately increased right ventricular size with low normal function. 3) There is moderate-severe aortic stenosis (valve area 0.9cm2, mean gradient 24mmHg, severity ratio 0.30). 4) There is mild to moderate tricuspid regurgitation. 5) The right ventricular systolic pressure is estimated to be at least 43 mmHg based on an estimated right atrial pressure of 8 mm Hg. 6) Compared to the Echo done 10/14/2022, no significant change. Procedure: A two-dimensional transthoracic echocardiogram with color flow and Doppler was performed. The study quality was technically adequate. Comparison is made with the echocardiogram of 10/14/2022. The patient was in atrial fibrillation with heart rates between 53-71 bpm during the exam. Left Ventricle: The left ventricle is normal in size. There is mild concentric left ventricular hypertrophy. The ejection fraction is estimated to be 60-65%. Left ventricular systolic function appears normal without focal wall motion abnormalities. Diastolic parameters suggest a relaxation abnormality of the left ventricle, consistent with probable normal filling pressures. Right Ventricle: The right ventricle is mild to moderately dilated. The right ventricular systolic function is normal. Atria: The left atrial size is normal. The right atrium is moderately dilated. There is no Doppler evidence for an interatrial shunt. Mitral Valve: The mitral valve is normal. There is mild mitral annular calcification. There is no mitral valve stenosis. There is mild mitral regurgitation. Aortic Valve: The aortic valve is heavily calcified. There is moderate to severe aortic stenosis. The peak aortic velocity is 3.37 m/sec. The aortic valve mean gradient is 26 mmHg. There is trace aortic regurgitation. Tricuspid Valve: The tricuspid valve is normal. There is no tricuspid stenosis. There is mild to moderate tricuspid regurgitation. The right ventricular systolic pressure is estimated to be at least 43 mmHg based on an estimated right atrial pressure of 8 mm Hg. Pulmonic Valve: The pulmonic valve is not well visualized. There is no pulmonic valvular stenosis. There is trace pulmonic regurgitation. Great Vessels: The aortic root is normal size. The ascending aorta is at the upper limits of normal in size. The pulmonary artery is normal size. The IVC is dilated (diameter is greater than 2.1 cm) yet it collapses greater than 50% with a sniff. This suggests a right atrial pressure of 8 mm Hg. Pericardium/ Pleura There is no pericardial effusion. There is no pleural effusion. MMode/2D Measurements & Calculations LVIDd: 3.4 cm LVOT diam: 2.0 cm LVIDs: 2.2 cm Ao root diam: 2.8 cm FS: 35.3 % asc Aorta Diam: 3.7 cm IVSd: 1.1 cm LVPWd: 1.2 cm LV bower. diameter/BSA (cm/m^2): 1.8 LV sys. diameter/BSA (cm/m^2): 1.2 LA A2 area: 19.3 cm2 RA long axis: 6.5 cm LA A4 area: 15.8 cm2 RA area: 23.4 cm2 LA length (vol): 5.7 cm RA vol: 72.3 ml LA vol: 45.1 ml RA : 38.5 ml/m2 LA vol index: 24.0 ml/m2 IVC diam: 2.1 cm RVD1 (basal): 4.7 cm LVLs ap4: 5.3 cm LVLd ap2: 6.2 cm TAPSE_phl: 1.9 cm LVLs ap2: 5.5 cm Doppler Measurements & Calculations Ao V2 max: 328.6 cm/sec LVOT Max Rogerio: 89.9 cm/sec Ao V2 mean: 229.6 cm/sec LV V1 max P.2 mmHg Ao max P.0 mmHg LV V1 VTI: 21.3 cm Ao mean P.4 mmHg JOSEPH(I,D): 0.89 cm2 Ao V2 VTI: 72.0 cm JOSEPH(V,D): 0.83 cm2 sev ratio: 0.30 JOSEPH indexed to BSA (cm^2/m^2): 0.48 TR max rogerio: 261.0 cm/sec SV(LVOT): 64.4 ml TR max P.8 mmHg AV VR_phl: 0.27 JOSEPH(VTI)/BSA_phl: 0.40 Reading Physician:05:32 PM
== END ==
PROVIDERS: PCP Family Medicine; Referring Provider Internal Medicine Cardiovascular Disease; Visit Provider Internal Medicine Cardiovascular Disease
DX: I08.3 Combined rheumatic disorders of mitral, aortic and tricuspid valves (principal)
CPT/HCPCS: 93306